=== PATIENT | female | born 1945 | race Caucasian/White ===

== ENCOUNTER 2021-02-14 12:15 | Outpatient (CLI) | payer MEDICARE, MEDICAID, SELFPAY ==
--- NOTE | 2021-02-14 12:25 | USCV_ITS ---
Arlene Jovany Age: 75 Gender: F : 1945 Exam Date: 02/14/2021 12:21 Ordering Phys: Clinton Valdez Technologist: Exam Location: [facility] [place]_ Indication: pvd RIGHT LEFT Brachial 129.00 mmHg Brachial 125.00 mmHg Pressure (mmHg) Waveform Pressure (mmHg) Waveform 150.00 SR TECHNICAL SALES CONSULTANT 148.00 144.00 DPA 135.00 1.16 Ankle/Brachial Index 1.15 70.00 Pre-Exercise Toe Pressure 76.00 0.51 Pre-Exercise Toe/Brachial Index 0.59 FINDINGS Normal resting ABIs bilaterally Slightly diminished resting ABIs bilaterally CONCLUSIONS Features suggestive of mild peripheral artery disease, possibly involving the distal vessels bilaterally. Dr Jonathan Plunkett MD [facility] (Electronically Signed) Final Date: 14 February 2021 20:44 S
== END 2021-02-14 12:16 | disposition home or self-care (01) ==
PROVIDERS: PCP Family Medicine; Visit Provider Family Medicine
DX: I73.9 Peripheral vascular disease, unspecified (principal)
CPT/HCPCS: 93922

== ENCOUNTER → 2021-05-17 14:15 | Outpatient (BNVA) | payer MEDICARE, MEDICAID, SELFPAY | PROVIDERS: PCP Family Medicine; Visit Provider Nurse Practitioner Family | DX: N39.0 Urinary tract infection, site not specified (principal); N39.3 Stress incontinence (female) (male) | CPT/HCPCS: 81003; 87077; 87086; 87184 ==

== ENCOUNTER → 2021-06-14 08:31 | Outpatient (BNVA) | payer MEDICARE, MEDICAID, SELFPAY | PROVIDERS: PCP Family Medicine; Visit Provider Nurse Practitioner Family | DX: N39.0 Urinary tract infection, site not specified (principal) | CPT/HCPCS: 81003 ==

== ENCOUNTER → 2021-07-25 12:57 | Outpatient (BNVA) | payer MEDICARE, MEDICAID, SELFPAY | PROVIDERS: PCP Family Medicine; Visit Provider Internal Medicine Cardiovascular Disease | DX: I11.0 Hypertensive heart disease with heart failure (principal); I50.22 Chronic systolic (congestive) heart failure; I25.10 Atherosclerotic heart disease of native coronary artery without angina pectoris; I25.5 Ischemic cardiomyopathy | CPT/HCPCS: 99214 ==

== ENCOUNTER 2023-01-31 08:41 | Inpatient (IN) | payer MEDICARE, MEDICAID, SELFPAY ==
[2023-01-31] VITALS (101 sets, daily range): BP systolic 106–171; BP diastolic 52–139; PULSE 69–92; RESP 18–38; TEMP 36.4–37; O2SAT 89–100
--- NOTE | 2023-01-31 08:44 | ECG_ITS ---
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 Measurements Intervals [place] Rate: 77 P: 78 CA: 198 QRS: -31 QRSD: 100 T: 66 QT: 293 QTc: 333 Interpretive Statements SINUS RHYTHM LEFT AXIS DEVIATION [QRS AXIS < -30] MODERATE VOLTAGE CRITERIA FOR LVH, CONSIDER NORMAL VARIANT [MEETS CRITERIA IN ONE OF: R(aVL), S(V1), R(V5), R(V5/V6)+S(V1)] NONSPECIFIC T-WAVE ABNORMALITY No previous ECG available for comparison Electronically Signed On 01-31-2023 12:40:29 MACHINIST HELPER MARINE by Rosaura Johnson M.D. [id number]
--- NOTE | 2023-01-31 08:45 | XRR_ITS ---
PROCEDURE INFORMATION: Exam: XR Chest Exam date and time: 01/31/2023 9:11 AM Age: 77 years old Clinical indication: Shortness of breath; Additional info: Dyspnea/cough TECHNIQUE: Imaging protocol: Radiologic exam of the chest. Views: 1 view. COMPARISON: 1. CR XR chest 2V* [id number] 07/22/2020 8:29 AM 2. CR XR chest 1V portable [id number] 07/17/2020 11:16 PM 3. CR XR chest 2V* [id number] 05/23/2020 12:43 PM FINDINGS: Lungs: Right perihilar and left lower lobe consolidative opacities. Pleural spaces: Possible small left pleural effusion. No pneumothorax. Heart/Mediastinum: Stable cardiomegaly. Vasculature: Heavy atherosclerotic calcification. Bones/joints: Stable dextroconvex spinal curvature. Degenerative changes along the spine and shoulders. Intraperitoneal space: Right upper abdomen surgical clips. XR/XR chest 1V portable [id number] IMPRESSION: 1. Bilateral multifocal consolidations compatible with pneumonia. Recommend imaging followup to resolution to exclude an underlying lesion. 2. Possible small left pleural effusion. 3. Stable cardiomegaly and heavy atherosclerosis.
--- NOTE | 2023-01-31 09:00 | ED_ITS ---
HPI - SOB/Dyspnea General: Chief Complaint: Shortness of Breath/Dyspnea Stated Complaint: shortness of breath Time Seen by Provider: 01/31/23 08:44 Source: EMS, RN notes reviewed and old records reviewed Mode of arrival: EMS History of Present Illness: HPI Narrative: 77-year-old female presents from group home with complaint of shortness of breath and congestion. Usually she wears 2 L by nasal cannula is now requiring 4 L. Began last night prior to that she had a choking episode and they are conc erned about aspiration. She has a history of congestive heart failure which is why she chronically wears oxygen she is on Ranexa. There are no anticoagulants listed currently is on Augmentin which was started for this. MD elicited complaint: shortness of breath and cough Pertinent past history: congestive heart failure Onset (ago): day(s) Context: choking/aspiration Timing: constant Severity: moderate Exacerbating factors: nothing Relieving factors: nothing Known history of: congestive heart failure Treatment prior to arrival: oxygen and other (Steroids) Related Data: Home oxygen amount: 2 liters Review of Systems General: Reports: ROS unobtainable due to medical condition PFSH ED PFSH: Medical History Arthritis Atherosclerosis of [place] coronary artery of [place] heart with stable angina pectoris CAD (coronary artery disease) Carotid artery stenosis CHF (congestive heart failure) CKD (chronic kidney disease) COPD (chronic obstructive pulmonary disease) GERD (gastroesophageal reflux disease) History of CVA (cerebrovascular accident) History of MT (myocardial infarction) HTN (hypertension) Hyperlipidemia Ischemic cardiomyopathy MACARENA (obstructive sleep apnea) Recurrent UTI Urinary incontinence Surgical History S/P cholecystectomy S/P coronary artery stent placement Family History Mother , at age 70 CAD (coronary artery disease) Father , at age 59 Stroke Bleeding disorder Sister Stroke Social History Smoking and tobacco/nicotine status: never used tobacco/nicotine Alcohol intake: never Marital status: Current occupational status: retired Physical Exam Const: ORIENTATION/CONSCIOUSNESS: Yes awake HENMT: COMMON NORMALS: normocephalic, atraumatic and hearing grossly normal bilaterally HEAD & SCALP: normocephalic and atraumatic Resp: COMMON NORMALS: No use of accessory muscles EFFORT & INSPECTION: Yes tachypneic AUSCULTATION: rhonchi and wheezes Cardio: COMMON NORMALS: regular rate, regular rhythm and No murmurs present (Cardio) RATE: regular rate RHYTHM: regular rhythm GI: COMMON NORMALS: Soft to palpation and No hepatosplenomegaly present AUSCULTATION: Yes normoactive bowel sounds PALPATION: Yes Soft to palpation, No Tenderness to palpation present (GI), No Guarding due to palpation present (GI) and Yes No hepatosplenomegaly present Extremity: COMMON NORMALS: normal to inspection, capillary refill normal, no clubbing, cyanosis or edema, no calf tenderness and no pedal edema Skin: COMMON NORMALS: no rashes or lesions noted GENERAL SKIN EXAM: no rashes or lesions noted Course Vital Signs: Vital signs: Vital Signs Temperature 98.6 F 01/31/23 08:43 Pulse Rate 88 01/31/23 14:30 Respiratory Rate 35 H 01/31/23 14:30 Blood Pressure 152/90 01/31/23 14:30 Pulse Oximetry 95 01/31/23 14:30 Oxygen Delivery Me thod Nasal Cannula 01/31/23 13:10 Oxygen Flow Rate 3 01/31/23 13:10 MDM - SOB/Dyspnea Medical Decision Making Bilateral lower lobe pneumonia this is increased oxygen need. We are able to correct her oxygen deficit with supplemental oxygen no tachycardia. Labs reviewed initiated antibiotics. Will admit discussed with hospitalist. She also does appear to have mild fluid overload Lasix given. Medical Records I reviewed the patient's medical records. Lab Data I reviewed the patient's lab results. 01/31/23 09:07 01/31/23 09:07 Labs/Radiology: Radiology Impressions Chest X-Ray 01/31/23 08:45 IMPRESSION: 1. Bilateral multifocal consolidations compatible with pneumonia. Recommend imaging followup to resolution to exclude an underlying lesion. 2. Possible small left pleural effusion. 3. Stable cardiomegaly and heavy atherosclerosis. Chest CTA 01/31/23 11:31 IMPRESSION: 1. Gxzb-qewphwv-mimx-right lung consolidations. Differential considerations include multifocal pneumonia, possibly atelectasis or sequela of aspiration. Recommend imaging followup to resolution to exclude an underlying lesion. 2. Mildly prominent mediastinal lymph node is nonspecific but possibly reactive. 3. Small hiatal hernia with fluid along the mid and lower esophagus which may be seen in the setting of gastroesophageal reflux or other esophageal dysmotility. 4. Mottled lucent appearance at multiple bilateral posterior ribs favored to represent chronic posttraumatic sequela, although possibility for metastatic disease. Query history of malignancy. 5. Mild anterior compression deformities of the C7 and T2-5 vertebral bodies, age indeterminate. 6. Pulmonary arterial dilatation may be seen in the setting of pulmonary hypertension. 7. Indeterminate 1.3 cm left adrenal nodule. Consider 12 month follow-up adrenal CT. (Reference: Tatyana) COMMENTS: Consistent with the [place] [employer]'s Incidental Findings Committee white paper (J Am Dana Radiol 2015): In patients aged 35 years and older with an incidental thyroid nodule equal to or greater than 1.[address], MRI or extrathyroidal US, further evaluation with dedicated thyroid US is recommended for patients with normal life expectancy and without comorbidities. For smaller nodules without suspicious features, no further evaluation or follow up is recommended. REFERENCES: Tatyana MARTINEZ, et al. Management of Incidental Adrenal Masses: A White Paper of the ACR Incidental Findings Committee. J Am Dana Radiol. 2017;14(8):3545-7144. Laboratory Results WBC 6.41 10^3/uL (3.29-11.43) 01/31/23 09:07 RBC 4.28 10^6/uL (3.85-5.65) 01/31/23 09:07 Hgb 12.40 g/dL (11.27-16.99) 01/31/23 09:07 Hct 38.3 % (36-47) 01/31/23 09:07 MCV 89.5 fl (85-98) 01/31/23 09:07 MCH 29.0 pg (27-33) 01/31/23 09:07 MCHC 32.4 g/dL (30-55) 01/31/23 09:07 RDW 14.5 % (12.1-15.1) 01/31/23 09:07 Plt Count 149 10^3/cmm (157-399) L 01/31/23 09:07 MPV 9.6 fL (7.4-10.4) 01/31/23 09:07 Neut % (Auto) 74.0 % 01/31/23 09:07 Lymph % (Auto) 17.9 % 01/31/23 09:07 Bay % (Auto) 7.5 % 01/31/23 09:07 Eos % (Auto) 0.0 % 01/31/23 09:07 Baso % (Auto) 0.3 % 01/31/23 09:07 Neut # (Auto) 4.74 10^3/uL (1.8-7.7) 01/31/23 09:07 Lymph # (Auto) 1.2 10^3/uL (0.8-4.8) 01/31/23 09:07 Bay # (Auto) 0.5 10^3/uL (0.2-0.9) 01/31/23 09:07 Eos # (Auto) 0.0 10^3/uL (0.0-0.8) 01/31/23 09:07 Baso # (Auto) 0.0 10^3/uL (0.0-0.1) 01/31/23 09:07 Nucleated RBC % (auto) 0 % 01/31/23 09:07 Nucleated RBCs # 0.0 /100WBC 01/31/23 09:07 D-Dimer 3.25 ug/mLFEU (0-0.59) H 01/31/23 09:07 Sodium 142 mmol/L (136-145) 01/31/23 09:07 Potassium 3.4 mmol/L (3.5-5.1) L 01/31/23 09:07 Chloride 106 mmol/L (98-107) 01/31/23 09:07 Carbon Dioxide 23 mmol/L (22-29) 01/31/23 09:07 Anion Gap 16.4 (5-19) 01/31/23 09:07 BUN 24 mg/dL (8-23) H 01/31/23 09:07 Creatinine 1.0 mg/dL (0.5-0.9) H 01/31/23 09:07 GFR Calculation Not Reportable 01/31/23 09:07 Glucose 113 mg/dL (65-115) 01/31/23 09:07 Calculated Osmolality 299 mOsm/kg (285-295) H 01/31/23 09:07 Calcium 8.5 mg/dL (8.5-10.5) 01/31/23 09:07 Total Bilirubin 0.9 mg/dL (0.15-1.2) 01/31/23 09:07 AST 19 U/L (0-32) 01/31/23 09:07 ALT 11 U/L (0-33) 01/31/23 09:07 Alkaline Phosphatase 86 U/L (35-105) 01/31/23 09:07 Troponin T Baseline 39 ng/L (0-10) H 01/31/23 09:07 C-Reactive Protein 64.1 mg/L (0.0-4.9) H 01/31/23 09:07 NT-Pro-B Natriuret Pep 00163 pg/mL (0-450) H 01/31/23 09:07 Total Protein 6.5 g/dL (6.6-8.7) L 01/31/23 09:07 Albumin 3.2 g/dL (3.5-5.2) L 01/31/23 09:07 Globulin 3.3 g/dL (1.3-4.6) 01/31/23 09:07 Procalcitonin 28.66 ng/mL (0-0.5) H 01/31/23 09:07 All radiology interpretation(s) finalized by discharge Discharge Plan Discharge Patient Disposition: Admitted As Inpatient Admit Provider: Tod Norman Clinical Impression: Bilateral pneumonia, Ischemic cardiomyopathy, Acute hypoxemic respiratory failure, Congestive heart failure (CHF) Condition: Stable Coding Level of Care Code ED Director Of Channel Marketing for Tirso Lr
[2023-01-31 09:24] LABS: Basophils % 0.3 %; Hematocrit 38.3 % (36-47); Lymphocytes # 1.2 10^3/uL (0.8-4.8); Lymphocytes % 17.9 %; Mean Corpuscular HGB Conc 32.4 g/dL (30-55); Mean Corpuscular Volume 89.5 fl (85-98); Mean Platelet Volume 9.6 fL (7.4-10.4); Monocytes # 0.5 10^3/uL (0.2-0.9); Monocytes % 7.5 %; Neutrophils # 4.74 10^3/uL (1.8-7.7); Nucleated Red Blood Cells % 0 %; Platelet Count 149 10^3/cmm (157-399); Red Blood Count 4.28 10^6/uL (3.85-5.65); Red Cell Distribution Width 14.5 % (12.1-15.1); White Blood Count 6.41 10^3/uL (3.29-11.43)
[2023-01-31 09:59] LABS: Alanine Aminotransferase 11 U/L (0-33); Albumin Level 3.2 g/dL (3.5-5.2); Alkaline Phosphatase 86 U/L (35-105); Blood Urea Nitrogen 24 mg/dL (8-23); Calcium 8.5 mg/dL (8.5-10.5); Carbon Dioxide 23 mmol/L (22-29); Chloride 106 mmol/L (98-107); Globulin 3.3 g/dL (1.3-4.6); Glucose 113 mg/dL (65-115); NT Pro B Type Natriuretic Pept 10222 pg/mL (0-450); Osmolality Calculated 299 mOsm/kg (285-295); Sodium 142 mmol/L (136-145); Total Bilirubin 0.9 mg/dL (0.15-1.2); Total Protein 6.5 g/dL (6.6-8.7)
[2023-01-31 10:09] LABS: Anion Gap 16.4 (5-19); Aspartate Amino Transferase 19 U/L (0-32); Potassium 3.4 mmol/L (3.5-5.1)
--- NOTE | 2023-01-31 11:31 | CTR_ITS ---
PROCEDURE INFORMATION: Exam: CTA Chest With Contrast Exam date and time: 01/31/2023 12:07 PM Age: 77 years old Clinical indication: Shortness of breath; Patient HX: Unable to hold breathe and raise arms up; Additional info: SOB TECHNIQUE: Imaging protocol: Computed tomographic angiography of the chest with contrast. Exam focused on the arteries. 3D rendering (Not supervised by radiologist): MIP and/or 3D reconstructed images were created by the technologist. Radiation optimization: All CT scans at this facility use at least one of these dose optimization techniques: automated exposure control; mA and/or kV adjustment per patient size (includes targeted exams where dose is matched to clinical indication); or iterative reconstruction. Contrast material: OMNI 350; Contrast volume: 95 ml; Contrast route: INTRAVENOUS (IV); REPORTING DATA: Count of CT and Cardiac NM exams in prior 12 months: This patient has received 0 known CTs and 0 known cardiac nuclear medicine studies in the 12 months prior to the current study. COMPARISON: CR (CHEST, ) 01/31/2023 9:11 AM RADIATION DOSE METRICS: Total DLP (mGy-cm): 538.8 FINDINGS: Pulmonary arteries: Pulmonary arterial dilatation with the main trunk measuring up to 4 cm. No central, lobar, or segmental filling defects. Aorta: Heavy systemic atherosclerotic calcification without aortic aneurysm. Thyroid: Subcentimeter left thyroid nodules require no dedicated imaging follow-up. Lungs: Jdjj-kudbolm-abfi-right lower lobe and posterior left upper lobe/lingular consolidations with associated air bronchograms. Pleural spaces: No pleural effusion or pneumothorax. Heart: Cardiomegaly. No pericardial effusion. Mediastinal space: Fluid throughout the mid and lower esophagus. Lymph nodes: Mildly prominent left paratracheal lymph node measures 1.4 cm in the short axis on axial image 134 of series 7. Calcified mediastinal lymph nodes in keeping with sequela of old granulomatous disease. Diaphragm: Small hiatal hernia. Gallbladder and bile ducts: Prior cholecystectomy. Spleen: Tiny splenic calcifications in keeping with sequela of old granulomatous disease. Adrenal glands: Indeterminate 1.3 cm left adrenal nodule. Bones/joints: Diffusely decreased mineralization. Moderate to severe dextroconvex spinal curvature. Mild anterior compression deformity of the C7 and T5 vertebral bodies. Multiple bilateral chronic appearing rib fracture deformities. Mottled lucent appearance at multiple bilateral posterior rib fractures, most conspicuous at the left 6 through 8th ribs with questionable cortical integrity. Soft tissues: Unremarkable. CT/CT angio chest PE protcl [id number] IMPRESSION: 1. Tllz-rsdlksu-dmxo-right lung consolidations. Differential considerations include multifocal pneumonia, possibly atelectasis or sequela of aspiration. Recommend imaging followup to resolution to exclude an underlying lesion. 2. Mildly prominent mediastinal lymph node is nonspecific but possibly reactive. 3. Small hiatal hernia with fluid along the mid and lower esophagus which may be seen in the setting of gastroesophageal reflux or other esophageal dysmotility. 4. Mottled lucent appearance at multiple bilateral posterior ribs favored to represent chronic posttraumatic sequela, although possibility for metastatic disease. Query history of malignancy. 5. Mild anterior compression deformities of the C7 and T2-5 vertebral bodies, age indeterminate. 6. Pulmonary arterial dilatation may be seen in the setting of pulmonary hypertension. 7. Indeterminate 1.3 cm left adrenal nodule. Consider 12 month follow-up adrenal CT. (Reference: Tatyana) COMMENTS: Consistent with the [place] [employer]'s Incidental Findings Committee white paper (J Am Dana Radiol 2015): In patients aged 35 years and older with an incidental thyroid nodule equal to or greater than 1.[address], MRI or extrathyroidal US, further evaluation with dedicated thyroid US is recommended for patients with normal life expectancy and without comorbidities. For smaller nodules without suspicious features, no further evaluation or follow up is recommended. REFERENCES: Tatyana MARTINEZ et al. Management of Incidental Adrenal Masses: A White Paper of the ACR Incidental Findings Committee. J Am Dana Radiol. 2017;14(8):8783-6790.
[2023-01-31 11:36] LABS: Troponin(5th) Baseline 39 ng/L (0-10)
[2023-01-31] MEDS: dexamethasone 10 mg/mL INJ 6 MG IVP (11:45)
[2023-01-31] MEDS: diphenhydrAMINE 50 mg/mL SDV 1mL 25 MG IVP (11:45)
[2023-01-31 11:47] LABS: C Reactive Protein 64.1 mg/L (0.0-4.9); Procalcitonin 28.66 ng/mL (0-0.5)
[2023-01-31 12:00] LABS: Troponin 5 2HR 41.34 ng/L (0-10)
[2023-01-31 12:10] LABS: D Dimer 3.25 ug/mLFEU (0-0.59)
[2023-01-31 12:12] LABS: Troponin 5 2HR Delta 2.34 ABS# (0-10)
[2023-01-31] MEDS: iohexol 350 mg/mL 500 mL Btl (per mL) IV (12:19)
[2023-01-31] MEDS: FUROsemide 10 mg/mL SDV 4mL 40 MG IVP (12:30)
[2023-01-31] MEDS: piperacillin-tazobactam 3.375 GM in sodium chloride 0.9% (plus) 50 ML IV ×2 (12:35→20:02)
--- NOTE | 2023-01-31 12:49 | USCV_ITS ---
Jovany Jacobs Age: 77 Gender: F : 1945 Exam Date: 01/31/2023 13:24 Ordering Phys: Tod Norman MD Technologist: CT Exam Location: [facility] [place] Indication: sob BP: 126 / 79 HR: 84 Rhythm: PVCs Technical Quality: , Fair MEASUREMENTS (Male / Female) Normal Values 2D ECHO LV Chamber Size 6.0 cm RV Chamber Size 4.6 cm LVOT Diameter 2.2 cm LV Ejection Fraction MOD 2C 29.3 % LV Ejection Fraction 2C AL 29.3 % LA Diameter 4.7 cm LA Width 5.8 cm LA Height 5.7 cm RA Width 3.9 cm RA Height 4.5 cm Aorta at Sinotubular Diameter 3.4 cm IVC Diameter 2.0 cm M-MODE Aortic Annulus Diameter 3.4 cm LA Ao Ratio MM 1.4 MV E Point Septal Separation 2.8 cm DOPPLER AV Peak Velocity 308.0 cm/s LVOT Peak Velocity 94.0 cm/s AV Area Cont Eq vti 1.3 cm squared AV Area Cont Eq pk 1.2 cm squared MV E' Velocity 5.0 cm/s TR Peak Velocity 201.0 cm/s TR Peak Gradient 16.2 mmHg TV Peak E Velocity 59.0 cm/s Right Atrial Pressure 8.0 mmHg Pulmonary Artery Systolic Pressu 24.2 mmHg PV Peak Velocity 105.0 cm/s FINDINGS Left Ventricle Moderately dilated left ventricle cavity. Moderately severely reduced LV systolic function, LVEF 30-35%. Severe hypokinesis of antral lateral and inferior calvert. Grade 2 diastolic dysfunction. Right Ventricle Normal right ventricular size and systolic function. Right Atrium Normal right atrial size. Left Atrium Dilated right atrium Mitral Valve Thickened mitral valve. Mild mitral valve regurgitation. Aortic Valve Thickened calcified aortic valve with reduced opening. Aortic valve gradient measurements revealed moderate aortic stenosis, peak gradient 38 mmHg, mean gradient 24 mmHg. However this is likely underestimate of aortic stenosis due to low flow-low pressure gradient related to his severe systolic dysfunction. Tricuspid Valve Thickened tricuspid valve. Trace tricuspid valve stenosis. Pulmonic Valve Structurally normal pulmonic valve. Mild pulmonary valve regurgitation. Pericardium No pericardial effusion. Aorta Normal size aortic root and proximal ascending aorta. IVC Normal IVC dimension with >50% respiratory change of the inferior vena cava. CONCLUSIONS 1. Moderately dilated LV cavity with moderately severely reduced LV systolic function LVEF 30-35%. Inferior and anterolateral hypokinesis. 2. Moderate aortic stenosis however the measurements are underestimated due to low flow low pressure gradient related to systolic dysfunction. Recommend repeat measurements after dobutamine infusion if assessment of severity aortic valve stenosis is clinically indicated. 3. Normal right heart and pulmonary pressures. Rosaura Johnson MD (Electronically Signed) Final Date: 01 February 2023 10:26 S
[2023-01-31 13:41] LABS: Adenovirus Not Detected (NOT DETECT); Chlamydia Pneumoniae Not Detected (NOT DETECT); Coronavirus 229E,HKU1,NL63,OC4 Not Detected (NOT DETECT); Human Metapneumovirus Not Detected (NOT DETECT); Human Rhinovirus/Enterovirus Not Detected (NOT DETECT); Influenza A Not Detected (NOT DETECT); Influenza A H1 Not Detected (NOT DETECT); Influenza A H1-2009 Not Detected (NOT DETECT); Influenza A H3 Not Detected (NOT DETECT); Influenza B Not Detected (NOT DETECT); Mycoplasma Pneumoniae Not Detected (NOT DETECT); Parainfluenza Virus Type 1 Not Detected (NOT DETECT); Parainfluenza Virus Type 2 Not Detected (NOT DETECT); Parainfluenza Virus Type 3 Not Detected (NOT DETECT); Parainfluenza Virus Type 4 Not Detected (NOT DETECT); Respiratory Syncytial Virus A Not Detected (NOT DETECT); Respiratory Syncytial Virus B Not Detected (NOT DETECT); SARS-COV-2 Not Detected (NOT DETECT)
[2023-01-31 13:43] LABS: ABG PCO2 36.2 mmHg (35-45); ABG PH Result 7.46 (7.35-7.45); Arterial Blood Gas Hematocrit 39.3 % (37-47); Base Excess ABG 1.8 mmol/L (-2.0-2.0); Blood Gas Operator Identificat glc; Blood Gas Sample Site Brachial, right; Blood Gas Sample Type Arterial; HCO3 ABG 25.5 mmol/L (22-26); Oxygen Device NC; PO2 ABG 57.5 mmHg (80.0-100.0); PO2 FiO2 Ratio Arterial Blood 0
[2023-01-31 13:51] LABS: INR 1.11 (0.8-1.2)
--- NOTE | 2023-01-31 13:52 | ECG_ITS ---
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 Measurements Intervals [place] Rate: 83 P: 72 WV: 186 QRS: -25 QRSD: 108 T: 32 QT: 371 QTc: 438 Interpretive Statements SINUS RHYTHM WITH FREQUENT SUPRAVENTRICULAR PREMATURE COMPLEXES BORDERLINE LEFT AXIS DEVIATION [QRS AXIS < -20] LEFT VENTRICULAR HYPERTROPHY AND ST-T CHANGE [VOLTAGE CRITERIA PLUS ST/T ABNORMALITY] Compared to ECG 01/31/2023 08:57:43 No significant change Electronically Signed On 02-01-2023 14:19:58 CHIEF COMMERCIAL OFFICER by Rosaura Johnson M.D. [id number]
--- NOTE | 2023-01-31 13:54 | PM.HP ---
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 Currently patient is alert to person, not not to place, not to time, she is encephalopathic, does not follow commands, she really does not have any complaints but has diffuse wheezing in all lung [place], tachypnea, respiratory rate 30s, she is on 4 L, she looks mildly uncomfortable, nasal flaring, intercostal retractions, I have had respiratory therapy get a ABG for me, I spoke to nursing home facility, nursing facility tells me that patient remains bedbound, she needs assistance for activities of daily living can feed herself, she is alert oriented x4 on most days, no evidence of dementia, they tell me that yesterday, she started having coughing, with complaints of wheezing, increasing oxygen requirements, no known aspiration events, no known falls this morning she had persistent wheezing, cough, with increased oxygen requirement so she was sent to [facility] for evaluation. In the ER she is in mild respiratory distress, will order ABG, CT angiogram of the chest, started on broad-spectrum antibiotic therapy, moved to ICU for close monitoring, order troponin series, D-dimer, troponin series, blood cultures, sputum cultures, respiratory viral panel, concerns for aspiration keep n.p.o., hold off on IV fluids BNP over 10,000, does have 1+ pitting edema bilateral lower extremities, has evidence of sepsis, she is already received Lasix, hold off on further Lasix therapy, given creatinine of 1.0, lactic acid ordered, CRP, Pro-Ajay ordered, cardiac echocardiogram ordered Review of Systems General: Reports: ROS unobtainable due to mental status Medications/Allergies Home Medications Medication Instructions Recorded Confirmed Last Taken Type albuterol sulfate 90 mcg/actuation 2 puff inhalation Q6H PRN 12/26/20 06/14/21 Unknown History aerosol inhaler aspirin 81 mg tablet,delayed 81 mg PO DAILY 12/26/20 06/14/21 Unknown History release (Adult Low Dose Aspirin) atorvastatin 20 mg tablet 20 mg PO DAILY 12/26/20 06/14/21 Unknown History cholecalciferol (vitamin D3) 1,250 50,000 unit PO .Once weekly 12/26/20 06/14/21 Unknown History mcg (50,000 unit) capsule hydralazine 50 mg tablet 50 mg PO TID 12/26/20 06/14/21 Unknown History nitroglycerin 0.4 mg sublingual 0.4 mg sublingual Q5M PRN 12/26/20 06/14/21 Unknown History tablet (Nitrostat) pantoprazole 40 mg tablet,delayed 40 mg PO BID 12/26/20 06/14/21 Unknown History release ascorbic acid (vitamin C) 1,000 mg 1,000 mg PO BID 01/18/21 06/14/21 Unknown History tablet vitamin A 2,400 mcg capsule 2,400 mcg PO DAILY 01/18/21 06/14/21 Unknown History amoxicillin 500 mg-potassium 1 tab PO DAILY #30 tabs 07/06/21 Unknown Rx clavulanate 125 mg tablet amoxicillin 875 mg-potassium 1 tab PO BID #42 tabs 07/06/21 Unknown Rx clavulanate 125 mg tablet amlodipine 5 mg tablet 5 mg PO QAM 07/25/21 Unknown History benzonatate 100 mg capsule 100 mg PO BID PRN 07/25/21 Unknown History carvedilol 6.25 mg tablet 6.25 mg PO BID PRN 07/25/21 Unknown History d-mannose 500 mg capsule mg PO 07/25/21 Unknown History furosemide 40 mg tablet 20 mg PO DAILY 07/25/21 Unknown History lactobacillus combination no.9 4 4,000 mmu cells PO DAILY 07/25/21 Unknown History billion cell capsule (Adult 50 Plus Probiotic) potassium gluconate 600 mg (99 mg) 600 mg PO DAILY 07/25/21 Unknown History tablet ranolazine 1,000 mg 1,000 mg PO BID #60 tabs 07/25/21 07/25/21 Unknown Rx tablet,extended release,12 hr (Ranexa) sennosides 8.6 mg tablet (Natural 8.6 mg PO DAILY PRN 07/25/21 Unknown History Senna Laxative) venlafaxine 37.5 mg tablet 37.5 mg PO BID 07/25/21 Unknown History Allergies Allergy/AdvReac Type Severity Reaction Status Date / Time iodine Allergy Mild Hives Verified 01/31/23 08:58 lisinopril Allergy Mild Rash Verified 01/31/23 08:58 ibandronate sodium Allergy Unknown Unknown Verified 01/31/23 08:58 latex Allergy Unknown Unknown Verified 01/31/23 08:58 PFSH Acute PFSH: Medical History Arthritis Atherosclerosis of [place] coronary artery of [place] heart with stable angina pectoris CAD (coronary artery disease) Carotid artery stenosis CHF (congestive heart failure) CKD (chronic kidney disease) COPD (chronic obstructive pulmonary disease) GERD (gastroesophageal reflux disease) History of CVA (cerebrovascular accident) History of [place] (myocardial infarction) HTN (hypertension) Hyperlipidemia Ischemic cardiomyopathy MACARENA (obstructive sleep apnea) Recurrent UTI Urinary incontinence Surgical History S/P cholecystectomy S/P coronary artery stent placement Family History Mother , at age 70 CAD (coronary artery disease) Father , at age 59 Stroke Bleeding disorder Sister Stroke Social History Smoking and tobacco/nicotine status: never used tobacco/nicotine Alcohol intake: never Marital status: Current occupational status: retired Vitals/I&O/Wt Last Vital Signs Temp 98.6 F 01/31/23 08:43 Pulse 88 01/31/23 13:10 Resp 37 H 01/31/23 13:10 BP 168/85 01/31/23 13:10 Pulse Ox 92 01/31/23 13:10 O2 Del Method Nasal Cannula 01/31/23 13:10 O2 Flow Rate 3 01/31/23 13:10 Physical Exam Const: COMMON NORMALS: no acute distress and patient oriented x3 HENMT: COMMON NORMALS: normocephalic HEAD & SCALP: normocephalic Eye: COMMON NORMALS: Equal, round and reactive pupils present and EOMs intact bilaterally Neck/C-Spine: COMMON NORMALS: full ROM Lymph: LYMPHATIC: no lymphadenopathy noted Chest: COMMONS NORMALS: normal inspection of the chest OTHER: Tachypneic, respiratory 33, intercostal retractions, nasal flaring, suprasternal retractions, short of breath with a few words Resp: AUSCULTATION: crackles, rales and wheezes Cardio: COMMON NORMALS: regular rate, regular rhythm, S1 normal heart sound present and S2 normal heart sound present RATE: tachycardic RHYTHM: regular rhythm HEART SOUNDS: S1 normal heart sound present and S2 normal heart sound present GI: COMMON NORMALS: Normal to inspection, nondistended, normoactive bowel sounds present, Soft to palpation and non-tender Extremity: COMMON NORMALS: no pedal edema Neuro: OTHER: Does not follow neurologic testing Urinary Catheter Management: Begum: Cath Placed During This Visit: yes Urinary Catheter Date of Insertion: 01/31/23 Data 01/31/23 09:07 01/31/23 09:07 Micro: Microbiology 01/31/23 13:24 Blood Culture - Preliminary Blood SPECIMEN COLLECTED 01/31/23 13:20 Blood Culture - Preliminary Blood SPECIMEN COLLECTED A&P Assessment and plan (1) Acute encephalopathy: (2) Acute hypoxemic respiratory failure: (3) Sepsis: (4) Bilateral pneumonia: (5) ANY (acute kidney injury): (6) NSTEMI (non-ST elevated myocardial infarction): Plan Acute hypoxic respiratory failure ? Likely second bilateral pneumonia, ? Component of systolic CHF, appears fluid overloaded with 1+ pitting edema, elevated BNP ? Plan, ? Sputum cultures, blood cultures, ? CRP, Pro-Ajay, ? Lactic acid, ? CT angiogram the chest, ? Vancomycin, Zosyn, ? Hold off on further Lasix therapy, monitor urine output, Place Begum catheter, ? Monitor respiratory status closely, ABG, ? Consider BiPAP, ? Full code, ? Lovenox for DVT prophylaxis Bilateral pneumonia, Ischemic cardiomyopathy, systolic CHF, ? Repeat cardiac echo, next NSTEMI, ? Type I versus type II, ? Serial EKGs, short troponins, telemetry monitoring, cardiac echo ? Acute encephalopathy, likely second pneumonia, ? Aspiration precautions, ? N.p.o., Acute kidney injury, ? Monitor urine output, monitor creatinine, Sepsis, ? Sepsis criteria met, as radiographic evidence of bilateral pneumonia, ? Creatinine 1.0, elevated troponins, encephalopathy, respiratory failure, clinical evidence of respiratory failure includes tachypnea, nasal flaring, intercostal retractions, Full code, ? Lovenox for DVT prophylaxis Attestations Medical Necessity Statement*: Patient requires hospitalization, inpatient, greater than 2 midnights, for acute hypoxic respiratory failure, bilateral pneumonia, NSTEMI, sepsis, acute encephalopathy, ANY, systolic CHF Diagnoses Acute encephalopathy G93.40 Acute hypoxemic respiratory failure J96.01 Sepsis A41.9 Bilateral pneumonia J18.9 ANY (acute kidney injury) N17.9 NSTEMI (non-ST elevated myocardial infarction) I21.4
[2023-01-31 13:56] LABS: Lactic Sepsis W/Reflex 2.9 mmol/L (0.5-2.2)
[2023-01-31 14:06] LABS: NT Pro B Type Natriuretic Pept 25180 pg/mL (0-450)
[2023-01-31 15:18] LABS: Reflex Lactate Order REFLEX LACTIC ORDERD
[2023-01-31 15:19] LABS: Estmated Average Glucose 88; Hemoglobin A1C 4.7 % (4.0-6.0)
[2023-01-31] MEDS: ipratropium-albuterol 3 mL Neb INHALATION ×2 (15:21→20:15)
[2023-01-31 15:29] LABS: Cholesterol 151 mg/dL (0-200); HDL Cholesterol 58 mg/dL (60-100); LDL Cholesterol Calculated 81 mg/dL (50-129); Thyroid Stimulating Hormone 0.54 uIU/mL (0.27-4.20); Triglycerides 60 mg/dL (0-150)
[2023-01-31 15:42] LABS: Bilirubin Urine Neg (Negative); Blood Urine 2+ (Negative); Glucose Urine UA Norm (Normal); Ketones Urine Negative (Negative); Leukocyte Esterase Urine 2+ (Negative); Nitrate Urine Negative (Negative); Protein Urine Neg (Negative); Specific Gravity, Urine 1.005 (1.005-1.030); Urine Appearance SL Hazy (CLEAR); Urine Color Yellow (Yellow); Urobilinogen Urine Norm (Negative); pH Urine 5 (5-7)
[2023-01-31 15:43] LABS: Add Urine Microscopic? YES; Bacteria Urine 3+ /hpf; RBC Urine 0-4 /hpf (0-2); WBC Urine 25-40 /hpf (0-5)
[2023-01-31 15:44] LABS: Add Urine Culture? Yes
[2023-01-31 16:39] LABS: Troponin 5 6HR 41.56 ng/L (0-10)
[2023-01-31 16:53] LABS: Troponin 5 6HR Delta 2.56 ng/L (0-12)
[2023-01-31] MEDS: enoxaparin 40 mg/0.4 mL Syringe SUBCUT (17:35)
[2023-01-31] MEDS: pantoprazole 40 mg SDV IVP (17:35)
--- NOTE | 2023-01-31 18:02 | ECG_ITS ---
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 Measurements Intervals Abrams Rate: 89 P: 85 SD: 178 QRS: -20 QRSD: 101 T: 62 QT: 314 QTc: 382 Interpretive Statements SINUS RHYTHM WITH frequent PACs NONSPECIFIC ST & T-WAVE ABNORMALITY Compared to ECG 01/31/2023 13:52:17 PACs are more frequent Electronically Signed On 02-01-2023 14:15:39 WASH HELPER by Rosaura Johnson M.D. [id number]
[2023-01-31] MEDS: vancomycin 1,250 MG/250 ML PIGGYBACK 200 MG IV (18:37)
[2023-02-01] VITALS (81 sets, daily range): BP systolic 107–154; BP diastolic 59–102; PULSE 63–96; RESP 10–44; TEMP 37.2–37.9; O2SAT 75–100
[2023-02-01] MEDS: pantoprazole 40 mg SDV IVP ×2 (04:23→16:30)
[2023-02-01] MEDS: piperacillin-tazobactam 3.375 GM in sodium chloride 0.9% (plus) 50 ML IV ×3 (04:26→20:45)
[2023-02-01 05:54] LABS: Mean Corpuscular HGB Conc 32.9 g/dL (30-55); Mean Corpuscular Hemoglobin 28.8 pg (27-33); Mean Corpuscular Volume 87.4 fl (85-98); Platelet Count 126 10^3/cmm (157-399); Red Blood Count 3.89 10^6/uL (3.85-5.65); Red Cell Distribution Width 14.6 % (12.1-15.1)
[2023-02-01 06:13] LABS: NT Pro B Type Natriuretic Pept 27718 pg/mL (0-450); Procalcitonin 29.21 ng/mL (0-0.5)
[2023-02-01 06:21] LABS: Lactate (Lactic Acid level) 1.8 mmol/L (0.5-2.2)
[2023-02-01 06:24] LABS: Alanine Aminotransferase 10 U/L (0-33); Albumin Level 3.1 g/dL (3.5-5.2); Alkaline Phosphatase 48 U/L (35-105); Anion Gap 15.9 (5-19); Aspartate Amino Transferase 21 U/L (0-32); Blood Urea Nitrogen 26 mg/dL (8-23); C Reactive Protein 310.6 mg/L (0.0-4.9); Calcium 8.6 mg/dL (8.5-10.5); Carbon Dioxide 26 mmol/L (22-29); Chloride 110 mmol/L (98-107); Globulin 3.3 g/dL (1.3-4.6); Glucose 118 mg/dL (65-115); Osmolality Calculated 314 mOsm/kg (285-295); Phosphorus 3.1 mg/dL (2.5-4.5); Sodium 149 mmol/L (136-145); Total Protein 6.4 g/dL (6.6-8.7)
[2023-02-01 06:32] LABS: Potassium 2.9 mmol/L (3.5-5.1)
[2023-02-01] MEDS: potassium chloride premix 100 ML 25 MEQ IV ×2 (06:46→10:30)
[2023-02-01 06:47] LABS: Slide Review Slide Review Perform
[2023-02-01 06:49] LABS: Absolute Neutrophil 9.5 10^3/cmm (1.4-6.5); Absolute Segmented Neutrophil 5.3 10/cmm (1.6-7.1); Band Neutrophils Absolute 4.3 10^3/cmm (0.0-1.2); Eosinophils 0 %; Lymphocytes 7 %; Lymphocytes Absolute 0.8 10^3/cmm (1.2-3.4); Monocytes Absolute 0.5 10^3/cmm (0.1-0.6); Platelet Estimate Decreased (Normal); Segmented Neutrophils 46 %; Total Cells Counted 100 (0-100)
[2023-02-01] MEDS: budesonide 0.5 mg/2 mL Neb INHALATION (07:41)
[2023-02-01] MEDS: ipratropium-albuterol 3 mL Neb INHALATION ×4 (07:41→19:12)
[2023-02-01] MEDS: aspirin 81 mg EC Tablet PO (08:26)
[2023-02-01] MEDS: acetaminophen 325 mg Tablet 650 MG PO (08:27)
[2023-02-01] MEDS: venlafaxine 75 mg Tablet 37.5 MG PO ×2 (08:27→18:36)
[2023-02-01] MEDS: atorvastatin 40 mg Tablet 20 MG PO (08:27)
[2023-02-01] MEDS: ranolazine (12HR) 500 mg Tablet 1000 MG PO ×2 (08:28→18:36)
[2023-02-01] MEDS: lidocaine 1% 5 ML in potassium chloride premix 100 ML 26.25 ML IV (10:30)
--- NOTE | 2023-02-01 13:21 | PM.PN ---
Subjective Subjective: Patient was seen this morning, she is alert to person, place, yesterday afternoon she was placed on BiPAP due to worsening respiratory status remains on BiPAP, clinically looks euvolemic, no evidence of respiratory distress this morning no nasal flaring no intercostal retractions no suprasternal retractions, but remains BiPAP dependent continue to monitor ICU Vitals/I&O/Wt Last Vital Signs Temp 100.2 F H 02/01/23 04:00 Pulse 81 02/01/23 12:45 Resp 19 H 02/01/23 12:45 BP 132/85 02/01/23 12:45 Pulse Ox 97 02/01/23 12:45 O2 Del Method BiPAP 02/01/23 11:07 O2 Flow Rate 4 01/31/23 15:01 FiO2 40 02/01/23 11:13 01/31/23 02/01/23 02/01/23 22:59 06:59 14:59 Intake Total 250 / 300 50 / 350 143.333 / 143.333 Output Total 1700 / 1700 300 / 2000 1800 / 1800 Balance -1450 / -1400 -250 / -1650 -1656.667 / -1656.667 Weight last 48 hrs Weight 94.529 kg Weight 96.162 kg Physical Exam Const: COMMON NORMALS: no acute distress and patient oriented x3 Resp: COMMON NORMALS: normal respiratory effort, No retractions and No use of accessory muscles AUSCULTATION: crackles and wheezes Cardio: COMMON NORMALS: regular rate, regular rhythm, S1 normal heart sound present and S2 normal heart sound present RATE: regular rate RHYTHM: regular rhythm HEART SOUNDS: S1 normal heart sound present and S2 normal heart sound present GI: COMMON NORMALS: Normal to inspection, nondistended, normoactive bowel sounds present and non-tender Extremity: COMMON NORMALS: no pedal edema Neuro: COMMON NORMALS: patient oriented x3 Psych: COMMON NORMALS: mental status grossly normal Urinary Catheter Management: Begum: Cath Placed During This Visit: yes Reason for Continuing Indwelling Catheter: Other Urinary Catheter Date of Insertion: 01/31/23 Data 02/01/23 05:15 02/01/23 05:15 Micro: Microbiology 01/31/23 13:13 Urine Culture - Preliminary Urine,Clean Catch Gram Negative Rods 01/31/23 13:24 Blood Culture - Preliminary Blood SPECIMEN COLLECTED 01/31/23 13:20 Blood Culture - Preliminary Blood SPECIMEN COLLECTED A&P Assessment and plan (1) Acute encephalopathy: (2) Acute hypoxemic respiratory failure: (3) Sepsis: (4) Bilateral pneumonia: (5) ANY (acute kidney injury): (6) NSTEMI (non-ST elevated myocardial infarction): Plan Acute hypoxic respiratory failure ? Likely second bilateral pneumonia, Pro-Ajay 29, CRP 310 ? Component of systolic CHF, appears fluid overloaded with 1+ pitting edema, elevated BNP -CT angiogram chest . ? Amwi-omftcmo-xmur-right lung consolidations. Differential considerations include multifocal pneumonia, possibly atelectasis or sequela of aspiration. Recommend imaging followup to resolution to exclude an underlying lesion. 2. ? Mildly prominent mediastinal lymph node is nonspecific but possibly reactive. 3. ? Small hiatal hernia with fluid along the mid and lower esophagus which may be seen in the setting of gastroesophageal reflux or other esophageal dysmotility. ? Plan, ? Sputum cultures, blood cultures, ? Vancomycin, Zosyn, ? 1 dose IV Lasix today, monitor urine output, Place Begum catheter, ? Monitor respiratory status closely, ABG, ? Consider BiPAP, ? Full code, ? Lovenox for DVT prophylaxis Bilateral pneumonia, Ischemic cardiomyopathy, systolic CHF, ? Echo as below ? BNP over 27,000 ? Hypokalemia potassium 2.9 will replace IV, ? 1 dose of IV Lasix this afternoon ? Urine output 3 L NSTEMI, ? Type I versus type II, ? Serial EKGs, short troponins, telemetry monitoring ?CONCLUSIONS ?1.? Moderately dilated LV cavity with moderately severely ?reduced LV systolic function LVEF 30-35%.? Inferior and ?anterolateral hypokinesis. ?2.? Moderate aortic stenosis however the measurements are ?underestimated due to low flow low pressure gradient related to ?systolic dysfunction.? Recommend repeat measurements after ?dobutamine infusion if assessment of severity aortic valve ?stenosis is clinically indicated. ?3.? Normal right heart and pulmonary pressures. Acute encephalopathy, likely second pneumonia, ? Aspiration precautions, ? N.p.o., Acute kidney injury, ? Monitor urine output, monitor creatinine, Sepsis, ? Sepsis criteria met, as radiographic evidence of bilateral pneumonia, ? Creatinine 1.0, elevated troponins, encephalopathy, respiratory failure, clinical evidence of respiratory failure includes tachypnea, nasal flaring, intercostal retractions, Full code, ? Lovenox for DVT prophylaxis, IV Lasix, potassium replacement continue IV antibiotics, continue BiPAP therapy, continue ICU monitoring Attestations Medical Necessity Statement*: Patient requires hospitalization for acute systolic CHF exacerbation, pneumonia, sepsis, ANY, elevated lactic acid, acute respiratory failure, acute encephalopathy Diagnoses Acute encephalopathy G93.40 Acute hypoxemic respiratory failure J96.01 Sepsis A41.9 Bilateral pneumonia J18.9 ANY (acute kidney injury) N17.9 NSTEMI (non-ST elevated myocardial infarction) I21.4
[2023-02-01] MEDS: FUROsemide 10 mg/mL SDV 4mL 40 MG IVP (13:37)
[2023-02-01] MEDS: enoxaparin 40 mg/0.4 mL Syringe SUBCUT (16:30)
[2023-02-01] MEDS: vancomycin 1,250 MG/250 ML PIGGYBACK 200 MG IV (18:35)
[2023-02-02] VITALS (33 sets, daily range): BP systolic 107–162; BP diastolic 59–104; PULSE 48–91; RESP 14–26; TEMP 36.6–36.8; O2SAT 90–100
[2023-02-02] MEDS: pantoprazole 40 mg SDV IVP ×2 (03:21→16:51)
[2023-02-02] MEDS: piperacillin-tazobactam 3.375 GM in sodium chloride 0.9% (plus) 50 ML IV ×3 (03:21→20:24)
[2023-02-02 04:34] LABS: Basophils # 0.1 10^3/uL (0.0-0.1); Basophils % 0.7 %; Eosinophils % 0.3 %; Hematocrit 31.7 % (36-47); Lymphocytes # 0.8 10^3/uL (0.8-4.8); Lymphocytes % 6.5 %; Mean Corpuscular HGB Conc 32.2 g/dL (30-55); Mean Corpuscular Hemoglobin 28.7 pg (27-33); Mean Platelet Volume 10.4 fL (7.4-10.4); Monocytes # 0.5 10^3/uL (0.2-0.9); Monocytes % 3.8 %; Neutrophils # 9.87 10^3/uL (1.8-7.7); Neutrophils % 82.9 %; Nucleated Red Blood Cells % 0 %; Platelet Count 125 10^3/cmm (157-399); Red Blood Count 3.56 10^6/uL (3.85-5.65); Red Cell Distribution Width 15.1 % (12.1-15.1); White Blood Count 11.91 10^3/uL (3.29-11.43)
[2023-02-02 04:48] LABS: Alanine Aminotransferase 9 U/L (0-33); Alkaline Phosphatase 42 U/L (35-105); Anion Gap 14.6 (5-19); Aspartate Amino Transferase 21 U/L (0-32); Blood Urea Nitrogen 39 mg/dL (8-23); C Reactive Protein 261.7 mg/L (0.0-4.9); Calcium 8.6 mg/dL (8.5-10.5); Carbon Dioxide 25 mmol/L (22-29); Chloride 110 mmol/L (98-107); Globulin 3.3 g/dL (1.3-4.6); Glucose 96 mg/dL (65-115); Magnesium 2.3 mg/dL (1.7-2.3); Osmolality Calculated 311 mOsm/kg (285-295); Phosphorus 2.2 mg/dL (2.5-4.5); Potassium 3.6 mmol/L (3.5-5.1); Sodium 146 mmol/L (136-145); Total Bilirubin 1.1 mg/dL (0.15-1.2); Total Protein 6.3 g/dL (6.6-8.7)
[2023-02-02 04:52] LABS: Lactate (Lactic Acid level) 1.2 mmol/L (0.5-2.2)
[2023-02-02 05:02] LABS: NT Pro B Type Natriuretic Pept 8947 pg/mL (0-450); Procalcitonin 26.08 ng/mL (0-0.5)
[2023-02-02 05:15] LABS: Slide Review Slide Review Perform
[2023-02-02] MEDS: budesonide 0.5 mg/2 mL Neb INHALATION (08:25)
[2023-02-02] MEDS: ipratropium-albuterol 3 mL Neb INHALATION ×4 (08:25→19:31)
[2023-02-02] MEDS: venlafaxine 75 mg Tablet 37.5 MG PO ×2 (08:56→17:00)
[2023-02-02] MEDS: FUROsemide 10 mg/mL SDV 4mL 40 MG IVP ×2 (08:56→17:00)
[2023-02-02] MEDS: atorvastatin 40 mg Tablet 20 MG PO (08:56)
[2023-02-02] MEDS: ranolazine (12HR) 500 mg Tablet 1000 MG PO ×2 (08:57→17:00)
[2023-02-02] MEDS: aspirin 81 mg EC Tablet PO (08:57)
--- NOTE | 2023-02-02 16:35 | PM.PN ---
Subjective Subjective: Patient was seen this morning, she is alert to person, not to place, to time she remains encephalopathic she can follow commands such as squeezing my fingers wiggling her toes, but does not know where she is, does know why she is here, does report shortness of breath Vitals/I&O/Wt Last Vital Signs Temp 98.9 F 02/01/23 05:00 Pulse 70 02/02/23 15:20 Resp 23 H 02/02/23 15:09 BP 155/88 02/02/23 12:00 Pulse Ox 96 02/02/23 15:09 O2 Del Method Nasal Cannula 02/02/23 15:09 O2 Flow Rate 4 02/02/23 15:09 FiO2 30 02/02/23 08:30 02/02/23 02/02/23 02/02/23 06:59 14:59 22:59 Intake Total 50 / 698.333 50 / 50 Output Total 400 / 2750 Balance -350 / -2051.667 50 / 50 Weight last 48 hrs Weight 94.71 kg Weight 94.619 kg Weight 94.529 kg Physical Exam Const: COMMON NORMALS: no acute distress EXAM LIMITATIONS: altered mental status ORIENTATION/CONSCIOUSNESS: Yes awake and Yes oriented to person; not oriented to place and not oriented to time Resp: COMMON NORMALS: normal respiratory effort, No retractions and No use of accessory muscles AUSCULTATION: crackles and wheezes Cardio: COMMON NORMALS: regular rate, regular rhythm, S1 normal heart sound present and S2 normal heart sound present RATE: regular rate RHYTHM: regular rhythm HEART SOUNDS: S1 normal heart sound present and S2 normal heart sound present GI: COMMON NORMALS: Normal to inspection, nondistended, normoactive bowel sounds present and non-tender Extremity: NARRATIVE EXTREMITY EXAM: 2+ pitting edema bilateral extremity Neuro: SENSORIUM/ORIENTATION: Yes oriented to person, No oriented to place and No oriented to time Psych: COMMON NORMALS: mental status grossly normal Urinary Catheter Management: Begum: Cath Placed During This Visit: yes Reason for Continuing Indwelling Catheter: Accurate Measurement of Urinary Output in Critically Ill Patients Urinary Catheter Date of Insertion: 01/31/23 Data 02/02/23 04:15 02/02/23 04:15 Micro: Microbiology 01/31/23 13:13 Urine Culture - Final Urine,Clean Catch Proteus mirabilis 01/31/23 13:24 Blood Culture - Preliminary Blood NEGATIVE TO DATE 01/31/23 13:20 Blood Culture - Preliminary Blood NEGATIVE TO DATE A&P Assessment and plan (1) Acute encephalopathy: (2) Acute hypoxemic respiratory failure: (3) Sepsis: (4) Bilateral pneumonia: (5) ANY (acute kidney injury): (6) NSTEMI (non-ST elevated myocardial infarction): (7) UTI (urinary tract infection): (8) Congestive heart failure (CHF): Plan Acute hypoxic respiratory failure ? Likely second bilateral pneumonia, Pro-Ajay 29, CRP 310 ? Component of systolic CHF, appears fluid overloaded with 1+ pitting edema, elevated BNP -CT angiogram chest . ? Xwrd-opivjdh-pqwl-right lung consolidations. Differential considerations include multifocal pneumonia, possibly atelectasis or sequela of aspiration. Recommend imaging followup to resolution to exclude an underlying lesion. 2. ? Mildly prominent mediastinal lymph node is nonspecific but possibly reactive. 3. ? Small hiatal hernia with fluid along the mid and lower esophagus which may be seen in the setting of gastroesophageal reflux or other esophageal dysmotility. ? Plan, ? Sputum cultures, blood cultures, ? Vancomycin, Zosyn, ? 1 dose IV Lasix today, monitor urine output, Place Begum catheter, ? Monitor respiratory status closely, ABG, ? Consider BiPAP, ? Full code, ? Lovenox for DVT prophylaxis Bilateral pneumonia, and antibiotics as above Proteus Mirabella's UTI, continue Zosyn Ischemic cardiomyopathy, systolic CHF, ? Echo as below ? BNP over 27,000 ? Monitor potassium, monitor creatinine ? 1 dose Lasix today ? Urine output 3 L NSTEMI, ? Type I versus type II, ? Serial EKGs, short troponins, telemetry monitoring ?CONCLUSIONS ?1.? Moderately dilated LV cavity with moderately severely ?reduced LV systolic function LVEF 30-35%.? Inferior and ?anterolateral hypokinesis. ?2.? Moderate aortic stenosis however the measurements are ?underestimated due to low flow low pressure gradient related to ?systolic dysfunction.? Recommend repeat measurements after ?dobutamine infusion if assessment of severity aortic valve ?stenosis is clinically indicated. ?3.? Normal right heart and pulmonary pressures. Acute encephalopathy, likely second pneumonia, ? Aspiration precautions, ? N.p.o., Acute kidney injury, ? Monitor urine output, monitor creatinine, Sepsis, ? Sepsis criteria met, as radiographic evidence of bilateral pneumonia, ? Creatinine 1.0, elevated troponins, encephalopathy, respiratory failure, clinical evidence of respiratory failure includes tachypnea, nasal flaring, intercostal retractions, Full code, ? Lovenox for DVT prophylaxis, IV Lasix, potassium replacement continue IV antibiotics, continue BiPAP therapy, continue ICU monitoring continue IV antibiotics, keep n.p.o. status, speech therapy eval Attestations Medical Necessity Statement*: Patient requires hospitalization for UTI, pneumonia, CHF, NSTEMI, COPD, requiring IV admission for IV antibiotics, IV diuretics, BiPAP therapy, clinical monitoring, Diagnoses Acute encephalopathy G93.40 Acute hypoxemic respiratory failure J96.01 Sepsis A41.9 Bilateral pneumonia J18.9 ANY (acute kidney injury) N17.9 NSTEMI (non-ST elevated myocardial infarction) I21.4 UTI (urinary tract infection) N39.0 Congestive heart failure (CHF) I50.9
[2023-02-02] MEDS: enoxaparin 40 mg/0.4 mL Syringe SUBCUT (16:51)
[2023-02-02] MEDS: vancomycin 1,250 MG/250 ML PIGGYBACK 250 MG IV (17:09)
[2023-02-02 18:28] LABS: Vancomycin Trough 16.2 ug/mL (10-15)
[2023-02-03] VITALS (25 sets, daily range): BP systolic 137–184; BP diastolic 68–90; PULSE 45–74; RESP 16–28; TEMP 36.5–37.1; O2SAT 82–100
[2023-02-03] MEDS: pantoprazole 40 mg SDV IVP ×2 (04:17→15:30)
[2023-02-03 04:19] LABS: Basophils # 0.1 10^3/uL (0.0-0.1); Basophils % 0.6 %; Eosinophils # 0.1 10^3/uL (0.0-0.8); Eosinophils % 0.8 %; Hematocrit 35.2 % (36-47); Lymphocytes # 1.1 10^3/uL (0.8-4.8); Lymphocytes % 7.9 %; Mean Corpuscular HGB Conc 31.3 g/dL (30-55); Mean Corpuscular Hemoglobin 28.4 pg (27-33); Mean Platelet Volume 10.5 fL (7.4-10.4); Monocytes # 0.6 10^3/uL (0.2-0.9); Monocytes % 4.1 %; Neutrophils # 11.79 10^3/uL (1.8-7.7); Neutrophils % 85.7 %; Nucleated Red Blood Cells % 0 %; Platelet Count 149 10^3/cmm (157-399); Red Blood Count 3.87 10^6/uL (3.85-5.65); White Blood Count 13.75 10^3/uL (3.29-11.43)
[2023-02-03] MEDS: piperacillin-tazobactam 3.375 GM in sodium chloride 0.9% (plus) 50 ML IV ×3 (04:20→20:05)
[2023-02-03 04:46] LABS: Alanine Aminotransferase 10 U/L (0-33); Albumin Level 3.2 g/dL (3.5-5.2); Alkaline Phosphatase 54 U/L (35-105); Anion Gap 18.2 (5-19); Aspartate Amino Transferase 21 U/L (0-32); Blood Urea Nitrogen 40 mg/dL (8-23); C Reactive Protein 131.5 mg/L (0.0-4.9); Calcium 8.8 mg/dL (8.5-10.5); Carbon Dioxide 24 mmol/L (22-29); Chloride 106 mmol/L (98-107); Globulin 3.5 g/dL (1.3-4.6); Glucose 80 mg/dL (65-115); Magnesium 2.2 mg/dL (1.7-2.3); Osmolality Calculated 309 mOsm/kg (285-295); Phosphorus 2.8 mg/dL (2.5-4.5); Potassium 3.2 mmol/L (3.5-5.1); Sodium 145 mmol/L (136-145); Total Bilirubin 1.1 mg/dL (0.15-1.2); Total Protein 6.7 g/dL (6.6-8.7)
[2023-02-03 04:48] LABS: NT Pro B Type Natriuretic Pept 7712 pg/mL (0-450); Procalcitonin 14.79 ng/mL (0-0.5)
[2023-02-03 04:50] LABS: Lactate (Lactic Acid level) 0.9 mmol/L (0.5-2.2)
[2023-02-03] MEDS: lidocaine 1% 5 ML in potassium chloride premix 100 ML 26.25 ML IV (06:26)
--- NOTE | 2023-02-03 07:00 | XRR_ITS ---
PROCEDURE INFORMATION: Exam: XR Chest Exam date and time: 02/03/2023 6:19 AM Age: 77 years old Clinical indication: Shortness of breath; Additional info: SOB TECHNIQUE: Imaging protocol: Radiologic exam of the chest. Views: 1 view. COMPARISON: CT angio chest PE protcl [id number] 01/31/2023 12:07 PM FINDINGS: Lungs: Stable perihilar infiltrates. Pleural spaces: Unremarkable. No pleural effusion. No pneumothorax. Heart/Mediastinum: See Vasculature finding. Vasculature: Marked cardiomegaly and uncoiling of the thoracic aorta stable. Bones/joints: Unremarkable. Other findings: No new or progressive abnormality. XR/XR chest 1V portable [id number] IMPRESSION: No significant change. Cardiomegaly with multifocal infiltrates, pneumonia versus CHF.
[2023-02-03] MEDS: ipratropium-albuterol 3 mL Neb INHALATION ×4 (08:20→20:56)
[2023-02-03] MEDS: budesonide 0.5 mg/2 mL Neb INHALATION (08:20)
[2023-02-03] MEDS: atorvastatin 40 mg Tablet 20 MG PO (08:24)
[2023-02-03] MEDS: ranolazine (12HR) 500 mg Tablet 1000 MG PO ×2 (08:24→17:42)
[2023-02-03] MEDS: aspirin 81 mg EC Tablet PO (08:25)
[2023-02-03] MEDS: venlafaxine 75 mg Tablet 37.5 MG PO (08:25)
[2023-02-03] MEDS: hydroCHLOROthiazide 25 mg Tablet 12.5 MG PO (09:17)
[2023-02-03] MEDS: metOLazone 5 MG Tablet PO (09:17)
[2023-02-03] MEDS: docusate sodium 100 mg Capsule PO (09:17)
[2023-02-03] MEDS: albumin 12.5 GM/50 ML VIAL IV (09:18)
[2023-02-03] MEDS: FUROsemide 10 mg/mL SDV 4mL 40 MG IVP (09:18)
--- NOTE | 2023-02-03 13:44 | P.PN_ITS ---
Subjective Subjective: Patient was seen this morning, she is much more alert and awake, she can follow commands she is alert to person, to place, not to time, she knows why she is here in the hospital, she tells that she has a pneumonia, currently on nasal cannula, she did use BiPAP throughout the night, Vitals/I&O/Wt Last Vital Signs Temp 97.8 F 02/03/23 08:00 Pulse 58 L 02/03/23 12:00 Resp 28 H 02/03/23 12:00 BP 155/79 02/03/23 12:00 Pulse Ox 89 L 02/03/23 12:00 O2 Del Method Nasal Cannula 02/03/23 11:30 O2 Flow Rate 4 02/03/23 11:30 FiO2 30 02/03/23 04:00 02/02/23 02/03/23 02/03/23 22:59 06:59 14:59 Intake Total 550 / 600 70.833 / 670.833 334.167 / 334.167 Output Total 2775 / 2775 1400 / 4175 Balance -2225 / -2175 -1329.167 / -3504.167 334.167 / 334.167 Weight last 48 hrs Weight 90.582 kg Weight 94.71 kg Physical Exam Const: COMMON NORMALS: no acute distress and patient oriented x3 Resp: COMMON NORMALS: normal respiratory effort, No retractions and No use of accessory muscles AUSCULTATION: crackles and wheezes Cardio: COMMON NORMALS: regular rate, regular rhythm, S1 normal heart sound pr esent and S2 normal heart sound present RATE: regular rate RHYTHM: regular rhythm HEART SOUNDS: S1 normal heart sound present and S2 normal heart sound present GI: COMMON NORMALS: Normal to inspection, nondistended, normoactive bowel sounds present and non-tender Extremity: NARRATIVE EXTREMITY EXAM: 2+ pitting edema Neuro: COMMON NORMALS: patient oriented x3 Psych: COMMON NORMALS: mental status grossly normal Urinary Catheter Management: Begum: Cath Placed During This Visit: yes Reason for Continuing Indwelling Catheter: Accurate Measurement of Urinary Output in Critically Ill Patients Urinary Catheter Date of Insertion: 01/31/23 Data 02/03/23 03:49 02/03/23 03:49 Micro: Microbiology 01/31/23 13:13 Urine Culture - Final Urine,Clean Catch Proteus mirabilis A&P Assessment and plan (1) Acute encephalopathy: (2) Acute hypoxemic respiratory failure: (3) Sepsis: (4) Bilateral pneumonia: (5) ANY (acute kidney injury): (6) NSTEMI (non-ST elevated myocardial infarction): (7) UTI (urinary tract infection): (8) Congestive heart failure (CHF): Plan Acute hypoxic respiratory failure ? Likely second bilateral pneumonia, Pro-Ajay 29, CRP 310 ? Component of systolic CHF, appears fluid overloaded with 1+ pitting edema, elevated BNP -CT angiogram chest . ? [id number]-[id number]-right lung consolidations. Differential considerations include multifocal pneumonia, possibly atelectasis or sequela of aspiration. Recommend imaging followup to resolution to exclude an underlying lesion. 2. ? Mildly prominent mediastinal lymph node is nonspecific but possibly reactive. 3. ? Small hiatal hernia with fluid along the mid and lower esophagus which may be seen in the setting of gastroesophageal reflux or other esophageal dysmotility. ? Plan, ? Sputum cultures, blood cultures, ? Continue Zosyn ? 1 dose IV Lasix today, monitor urine output, Place Begum catheter, urine output 7 L ? Monitor respiratory status closely, ABG, ? Scheduled BiPAP during the night as needed during the day, currently on nasal cannula ? Full code, ? Lovenox for DVT prophylaxis Bilateral pneumonia, and antibiotics as above Proteus Mirabella's UTI, continue Zosyn Ischemic cardiomyopathy, systolic CHF, ? Echo as below ? BNP over 27,000 ? Monitor potassium, monitor creatinine ? 1 dose Lasix today ? Urine output 3 L NSTEMI, ? Type I versus type II, ? Serial EKGs, short troponins, telemetry monitoring ?CONCLUSIONS ?1.? Moderately dilated LV cavity with moderately severely ?reduced LV systolic function LVEF 30-35%.? Inferior and ?anterolateral hypokinesis. ?2.? Moderate aortic stenosis however the measurements are ?underestimated due to low flow low pressure gradient related to ?systolic dysfunction.? Recommend repeat measurements after ?dobutamine infusion if assessment of severity aortic valve ?stenosis is clinically indicated. ?3.? Normal right heart and pulmonary pressures. Acute encephalopathy, likely secondary pneumonia, resolving ? Aspiration precautions, ? Advance diet as tolerated Acute kidney injury, ? Monitor urine output, monitor creatinine, Sepsis, ? Sepsis criteria met, as radiographic evidence of bilateral pneumonia, ? Creatinine 1.0, elevated troponins, encephalopathy, respiratory failure, clinical evidence of respiratory failure includes tachypnea, nasal flaring, intercostal retractions, Full code, ? Lovenox for DVT prophylaxis, Plan for today continue IV antibiotics, will move out of ICU, continue BiPAP therapy, IV replacement potassium, IV Lasix, Attestations Medical Necessity Statement*: Patient requires hospitalization for acute hypoxic respiratory failure, pneumonia, CHF, NSTEMI, Diagnoses Acute encephalopathy G93.40 Acute hypoxemic respiratory failure J96.01 Sepsis A41.9 Bilateral pneumonia J18.9 ANY (acute kidney injury) N17.9 NSTEMI (non-ST elevated myocardial infarction) I21.4 UTI (urinary tract infection) N39.0 Congestive heart failure (CHF) I50.9
[2023-02-03] MEDS: enoxaparin 40 mg/0.4 mL Syringe SUBCUT (15:17)
[2023-02-03] MEDS: amlodipine 5 mg Tablet PO (15:17)
[2023-02-04] VITALS (14 sets, daily range): BP systolic 138–179; BP diastolic 76–85; PULSE 50–84; RESP 15–26; TEMP 36.7–37.2; O2SAT 95–98
[2023-02-04 03:58] LABS: Hematocrit 38.5 % (36-47); Mean Corpuscular HGB Conc 31.2 g/dL (30-55); Mean Corpuscular Hemoglobin 28.5 pg (27-33); Mean Corpuscular Volume 91.4 fl (85-98); Mean Platelet Volume 10.7 fL (7.4-10.4); Platelet Count 151 10^3/cmm (157-399); Red Blood Count 4.21 10^6/uL (3.85-5.65); Red Cell Distribution Width 14.7 % (12.1-15.1); White Blood Count 7.02 10^3/uL (3.29-11.43)
[2023-02-04 04:21] LABS: Alanine Aminotransferase 9 U/L (0-33); Albumin Level 3.4 g/dL (3.5-5.2); Alkaline Phosphatase 77 U/L (35-105); Blood Urea Nitrogen 35 mg/dL (8-23); C Reactive Protein 63.7 mg/L (0.0-4.9); Calcium 9.1 mg/dL (8.5-10.5); Carbon Dioxide 27 mmol/L (22-29); Chloride 105 mmol/L (98-107); Globulin 3.7 g/dL (1.3-4.6); Glucose 94 mg/dL (65-115); Magnesium 2.3 mg/dL (1.7-2.3); Osmolality Calculated 308 mOsm/kg (285-295); Phosphorus 3.2 mg/dL (2.5-4.5); Sodium 145 mmol/L (136-145); Total Bilirubin 0.8 mg/dL (0.15-1.2); Total Protein 7.1 g/dL (6.6-8.7)
[2023-02-04 04:24] LABS: Anion Gap 16.2 (5-19); Aspartate Amino Transferase 19 U/L (0-32); Potassium 3.2 mmol/L (3.5-5.1)
[2023-02-04 04:33] LABS: NT Pro B Type Natriuretic Pept 5877 pg/mL (0-450)
[2023-02-04 04:42] LABS: Absolute Segmented Neutrophil 4.7 10/cmm (1.6-7.1); Eosinophils 0 %; Lymphocytes 22 %; Lymphocytes Absolute 1.5 10^3/cmm (1.2-3.4); Monocytes Absolute 0.4 10^3/cmm (0.1-0.6); Segmented Neutrophils 67 %; Slide Review Slide Review Perform; Total Cells Counted 100 (0-100)
[2023-02-04 04:43] LABS: Absolute Neutrophil 4.7 10^3/cmm (1.4-6.5); Platelet Estimate Normal (Normal)
[2023-02-04] MEDS: piperacillin-tazobactam 3.375 GM in sodium chloride 0.9% (plus) 50 ML IV ×3 (04:46→23:05)
[2023-02-04] MEDS: pantoprazole 40 mg SDV IVP ×2 (05:13→16:01)
[2023-02-04] MEDS: amlodipine 5 mg Tablet PO (05:23)
[2023-02-04] MEDS: ipratropium-albuterol 3 mL Neb INHALATION ×3 (07:20→15:22)
[2023-02-04] MEDS: budesonide 0.5 mg/2 mL Neb INHALATION (07:20)
[2023-02-04] MEDS: docusate sodium 100 mg Capsule PO ×2 (10:47→17:15)
[2023-02-04] MEDS: metOLazone 5 MG Tablet PO (10:47)
[2023-02-04] MEDS: ranolazine (12HR) 500 mg Tablet 1000 MG PO ×2 (10:47→17:15)
[2023-02-04] MEDS: aspirin 81 mg EC Tablet PO (10:47)
[2023-02-04] MEDS: hydroCHLOROthiazide 25 mg Tablet 12.5 MG PO (10:48)
[2023-02-04] MEDS: sertraline 50 mg Tablet 25 MG PO (10:48)
[2023-02-04] MEDS: FUROsemide 10 mg/mL SDV 4mL 40 MG IVP (10:48)
[2023-02-04] MEDS: atorvastatin 40 mg Tablet 20 MG PO (10:48)
[2023-02-04] MEDS: lidocaine 1% 5 ML in potassium chloride premix 100 ML 26.25 ML IV (10:49)
--- NOTE | 2023-02-04 13:45 | PC.SOCIAL ---
IMM Update pg 2 of IMM updated and reviewed w/ patient. Copy provided and copy dated, initialed and placed in chart.
--- NOTE | 2023-02-04 15:55 | PM.PN ---
Subjective Subjective: Patient was seen this morning, she is alert to person, place, to time she can follow commands, she tells me she feels significantly better, no fevers, chills, no cough, no abdominal pain, she continues to have edema but improving, Vitals/I&O/Wt Last Vital Signs Temp 98.0 F 02/04/23 11:23 Pulse 65 02/04/23 15:22 Resp 18 02/04/23 15:22 BP 139/76 02/04/23 11:23 Pulse Ox 98 02/04/23 15:22 O2 Del Method Nasal Cannula 02/04/23 15:22 O2 Flow Rate 2 02/04/23 15:22 FiO2 30 02/04/23 04:00 02/04/23 02/04/23 02/04/23 06:59 14:59 22:59 Intake Total 50 / 434.167 290 / 290 Output Total 400 / 4300 1800 / 1800 Balance -350 / -3865.833 -1510 / -1510 Weight last 48 hrs Weight 85.786 kg Weight 90.582 kg Physical Exam Const: COMMON NORMALS: no acute distress and patient oriented x3 Resp: COMMON NORMALS: normal respiratory effort, No retractions, No use of accessory muscles and clear to auscultation bilaterally AUSCULTATION: clear to auscultation bilaterally Cardio: COMMON NORMALS: regular rate, regular rhythm, S1 normal heart sound present and S2 normal heart sound present RATE: regular rate RHYTHM: regular rhythm HEART SOUNDS: S1 normal heart sound present and S2 normal heart sound present GI: COMMON NORMALS: Normal to inspection, nondistended, normoactive bowel sounds present and non-tender Extremity: NARRATIVE EXTREMITY EXAM: 1+ pitting edema Neuro: COMMON NORMALS: patient oriented x3 Psych: COMMON NORMALS: mental status grossly normal Urinary Catheter Management: Begum: Cath Placed During This Visit: yes Reason for Continuing Indwelling Catheter: Acute Urinary Retention or Obstruction Urinary Catheter Date of Insertion: 01/31/23 Data 02/04/23 03:34 02/04/23 03:34 A&P Assessment and plan (1) Acute encephalopathy: (2) Acute hypoxemic respiratory failure: (3) Sepsis: (4) Bilateral pneumonia: (5) ANY (acute kidney injury): (6) NSTEMI (non-ST elevated myocardial infarction): (7) UTI (urinary tract infection): (8) Congestive heart failure (CHF): Plan Acute hypoxic respiratory failure ? Likely second bilateral pneumonia, Pro-Ajay 29, CRP 310 ? Component of systolic CHF, appears fluid overloaded with 1+ pitting edema, elevated BNP -CT angiogram chest . ? [id number]-[id number]-right lung consolidations. Differential considerations include multifocal pneumonia, possibly atelectasis or sequela of aspiration. Recommend imaging followup to resolution to exclude an underlying lesion. 2. ? Mildly prominent mediastinal lymph node is nonspecific but possibly reactive. 3. ? Small hiatal hernia with fluid along the mid and lower esophagus which may be seen in the setting of gastroesophageal reflux or other esophageal dysmotility. ? Plan, ? Sputum cultures, blood cultures, ? Continue Zosyn ? 1 dose IV Lasix today, monitor urine output, Place Begum catheter, urine output 11 L ? Monitor respiratory status closely, ABG, ? Scheduled BiPAP during the night as needed during the day, currently on nasal cannula ? Full code, ? Lovenox for DVT prophylaxis Bilateral pneumonia, and antibiotics as above Proteus Mirabella's UTI, continue Zosyn Ischemic cardiomyopathy, systolic CHF, ? Echo as below ? BNP over 27,000 ? Monitor potassium, monitor creatinine ? 1 dose Lasix today ? Urine output 3 L NSTEMI, ? Type I versus type II, ? Serial EKGs, short troponins, telemetry monitoring ?CONCLUSIONS ?1.? Moderately dilated LV cavity with moderately severely ?reduced LV systolic function LVEF 30-35%.? Inferior and ?anterolateral hypokinesis. ?2.? Moderate aortic stenosis however the measurements are ?underestimated due to low flow low pressure gradient related to ?systolic dysfunction.? Recommend repeat measurements after ?dobutamine infusion if assessment of severity aortic valve ?stenosis is clinically indicated. ?3.? Normal right heart and pulmonary pressures. Acute encephalopathy, likely secondary pneumonia, resolving ? Aspiration precautions, ? Advance diet as tolerated Acute kidney injury, ? Monitor urine output, monitor creatinine, Sepsis, ? Sepsis criteria met, as radiographic evidence of bilateral pneumonia, ? Creatinine 1.0, elevated troponins, encephalopathy, respiratory failure, clinical evidence of respiratory failure includes tachypnea, nasal flaring, intercostal retractions, Full code, ? Lovenox for DVT prophylaxis, Plan for today patient is -11 L, continue IV diuresis, continue clinical monitoring, Attestations Medical Necessity Statement*: Patient requires hospitalization for pneumonia, required IV antibiotics, fluid overload requiring diuresis, -11 L so far continue Lasix therapy monitor kidney function Diagnoses Acute encephalopathy G93.40 Acute hypoxemic respiratory failure J96.01 Sepsis A41.9 Bilateral pneumonia J18.9 ANY (acute kidney injury) N17.9 NSTEMI (non-ST elevated myocardial infarction) I21.4 UTI (urinary tract infection) N39.0 Congestive heart failure (CHF) I50.9
[2023-02-04] MEDS: enoxaparin 40 mg/0.4 mL Syringe SUBCUT (16:00)
[2023-02-05] VITALS: BP 132/68; PULSE 58; RESP 16; O2SAT 99
[2023-02-05 00:15] VITALS: PULSE 55; RESP 20; O2SAT 98
[2023-02-05] MEDS: pantoprazole 40 mg SDV IVP (06:30)
[2023-02-05] MEDS: amlodipine 5 mg Tablet PO (06:48)
[2023-02-05] MEDS: piperacillin-tazobactam 3.375 GM in sodium chloride 0.9% (plus) 50 ML IV (06:49)
[2023-02-05 08:00] VITALS: PULSE 57; RESP 18; O2SAT 97
[2023-02-05] MEDS: hydroCHLOROthiazide 25 mg Tablet 12.5 MG PO (08:11)
[2023-02-05] MEDS: atorvastatin 40 mg Tablet 20 MG PO (08:11)
[2023-02-05] MEDS: sertraline 50 mg Tablet 25 MG PO (08:11)
[2023-02-05] MEDS: ranolazine (12HR) 500 mg Tablet 1000 MG PO (08:11)
[2023-02-05] MEDS: docusate sodium 100 mg Capsule PO (08:11)
[2023-02-05] MEDS: aspirin 81 mg EC Tablet PO (08:11)
[2023-02-05 08:27] LABS: Alanine Aminotransferase 11 U/L (0-33); Albumin Level 3.1 g/dL (3.5-5.2); Alkaline Phosphatase 56 U/L (35-105); Aspartate Amino Transferase 15 U/L (0-32); Blood Urea Nitrogen 41 mg/dL (8-23); C Reactive Protein 33.6 mg/L (0.0-4.9); Carbon Dioxide 28 mmol/L (22-29); Chloride 101 mmol/L (98-107); Globulin 3.5 g/dL (1.3-4.6); Glucose 102 mg/dL (65-115); Magnesium 2.2 mg/dL (1.7-2.3); Osmolality Calculated 306 mOsm/kg (285-295); Phosphorus 3.3 mg/dL (2.5-4.5); Sodium 143 mmol/L (136-145); Total Bilirubin 0.6 mg/dL (0.15-1.2); Total Protein 6.6 g/dL (6.6-8.7)
[2023-02-05 08:28] LABS: NT Pro B Type Natriuretic Pept 4252 pg/mL (0-450)
[2023-02-05] MEDS: ipratropium-albuterol 3 mL Neb INHALATION ×2 (08:49→11:07)
[2023-02-05] MEDS: budesonide 0.5 mg/2 mL Neb INHALATION (08:50)
[2023-02-05 09:19] LABS: Hematocrit 38.4 % (36-47); Mean Corpuscular HGB Conc 31.8 g/dL (30-55); Mean Corpuscular Hemoglobin 28.8 pg (27-33); Mean Corpuscular Volume 90.8 fl (85-98); Mean Platelet Volume 10.9 fL (7.4-10.4); Platelet Count 167 10^3/cmm (157-399); Red Blood Count 4.23 10^6/uL (3.85-5.65); Red Cell Distribution Width 14.7 % (12.1-15.1); White Blood Count 7.02 10^3/uL (3.29-11.43)
[2023-02-05 09:31] LABS: Slide Review Slide Review Perform
[2023-02-05 11:09] VITALS: PULSE 55; RESP 18; O2SAT 95
--- NOTE | 2023-02-05 11:44 | P.DS_ITS ---
Discharge Providers Date of Admission: 01/31/23 11:08 Date of Discharge: February 05, 2023 Attending Provider at Admission: Tod Norman MD Attending Provider at Discharge: Tod Norman MD Primary Care Provider: Clinton Valdez Diagnoses at Discharge Discharge Diagnosis (1) Acute encephalopathy: Status: Acute (2) Acute hypoxemic respiratory failure: Status: Acute (3) Sepsis: Status: Acute (4) Bilateral pneumonia: Status: Acute (5) ANY (acute kidney injury): Status: Acute (6) NSTEMI (non-ST elevated myocardial infarction): Status: Acute (7) UTI (urinary tract infection): Status: Acute (8) Congestive heart failure (CHF): Status: Acute Reason for Visit Reason for Visit: shortness of breath Hospital Course Hospital Course Jovany Jacobs is a 77 year old female with a past medical history of CAD, history of stenting to proximal LAD, and circumflex, 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 Currently patient is alert to person, not not to place, not to time, she is encephalopathic, does not follow commands, she really does not have any complaints but has diffuse wheezing in all lung [place], tachypnea, respiratory rate 30s, she is on 4 L, she looks mildly uncomfortable, nasal flaring, int ercostal retractions, I have had respiratory therapy get a ABG for me, I spoke to [facility] facility, nursing facility tells me that patient remains bedbound, she needs assistance for activities of daily living can feed herself, she is alert oriented x4 on most days, no evidence of dementia, they tell me that yesterday, she started having coughing, with complaints of wheezing, increasing oxygen requirements, no known aspiration events, no known falls this morning she had persistent wheezing, cough, with increased oxygen requirement so she was sent to [facility] for evaluation. In the ER she is in mild respiratory distress, will order ABG, CT angiogram of the chest, started on broad-spectrum antibiotic therapy, moved to ICU for close monitoring, order troponin series, D-dimer, troponin series, blood cultures, sputum cultures, respiratory viral panel, concerns for aspiration keep n.p.o., hold off on IV fluids BNP over 10,000, does have 1+ pitting edema bilateral lower extremities, has evidence of sepsis, she is already received Lasix, hold off on further Lasix therapy, given creatinine of 1.0, lactic acid ordered, CRP, Pro-Ajay ordered, cardiac echocardiogram ordered This is a 77-year-old female, who presents to [facility] for acute hypoxic respiratory failure secondary to bilateral pneumonia, with systolic CHF exacerbation, fluid overload, For her bilateral pneumonia, she was monitored with intermittent BiPAP therapy, oxygen therapy, so far blood cultures have been negative, she remains afebrile, overall clinically improved, discharged on 5 remaining days of cefdinir, For her systolic CHF exacerbation, she received inpatient diuresis, diuresed over 12 L, overall clinically improved, discharged on Lasix therapy potassium therapy with a close follow-up with primary care provider as outpatient follow- up with cardiology in 1 week, recheck BMP and kidney function in 48 hours, For NSTEMI, history of ischemic cardiomyopathy, history of LAD stenting, 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 Moderately dilated LV cavity with moderately severely ?reduced LV systolic function LVEF 30-35%.? Inferior and ?anterolateral hypokinesis. ?2.? Moderate aortic stenosis however the measurements are ?underestimated due to low flow low pressure gradient related to ?systolic dysfunction.? Recommend repeat measurements after ?dobutamine infusion if assessment of severity aortic valve ?stenosis is clinically indicated. ?3.? Normal right heart and pulmonary pressures. ? Do not have a prior echocardiogram to compare to, as patient was originally from [facility], ? But has a history of ischemic cardiomyopathy, with a EF around 30% ? Discussed with patient about medical management versus intervention, agreeable for medical management for now, discharged on aspirin, statin, beta-jo-ann, Plavix with close follow-up with cardiology as outpatient, ? If any recurrent chest pain to go to the emergency room, Patient was found to have a Proteus UTI, managed with antibiotic therapy, discharged on 5 remaining days of cefdinir, Acute encephalopathy secondary to pneumonia, UTI, respiratory failure, overall resolved, ANY, resolved, ? Sepsis secondary to pneumonia, UTI, resolved, Physical Exam Const: COMMON NORMALS: no acute distress ORIENTATION/CONSCIOUSNESS: Yes awake, Yes oriented to person and Yes oriented to place; not oriented to time Lymph: LYMPHATIC: no lymphadenopathy noted Resp: COMMON NORMALS: normal respiratory effort, No retractions, No use of accessory muscles and clear to auscultation bilaterally AUSCULTATION: clear to auscultation bilaterally Cardio: COMMON NORMALS: regular rate, regular rhythm, S1 normal heart sound present, S2 normal heart sound present, No gallops present (Cardio), No clicks present (Cardio) and No murmurs present (Cardio) RATE: regular rate RHYTHM: regular rhythm HEART SOUNDS: S1 normal heart sound present and S2 normal heart sound present GI: COMMON NORMALS: Normal to inspection, nondistended, normoactive bowel sounds present and non-tender Extremity: COMMON NORMALS: no pedal edema Neuro: SENSORIUM/ORIENTATION: Yes oriented to person, Yes oriented to place and No oriented to time Urinary Catheter Management: Begum: Cath Placed During This Visit: yes Reason for Continuing Indwelling Catheter: Other Urinary Catheter Date of Insertion: 01/31/23 Discharge Data Studies Completed and Pending Completed Studies During Hospitalization Category Date Time Status CT angio chest PE protcl [id number] Stat Cat Scan 01/31/23 11:31 Completed XR chest 1V portable [id number] Routine Exams 02/03/23 07:00 Completed XR chest 1V portable [id number] Stat Exams 01/31/23 08:45 Completed CV. echo complete* [id number] Stat Ultrasound 01/31/23 12:49 Completed Pending at discharge Category Date Time Status Blood Culture Stat Lab 01/31/23 13:24 Results C Reactive Protein AM LABS Lab 02/06/23 04:00 Ordered COVID [SARS Covid-2 Antigen] Routine Lab 02/05/23 06:00 Uncollected Complete Blood Count w/Auto AM LABS Lab 02/06/23 04:00 Ordered Comprehensive Metabolic Panel AM LABS Lab 02/06/23 04:00 Ordered Magnesium AM LABS Lab 02/06/23 04:00 Ordered NT Pro B Type Natriuretic Pept QAM Lab 02/06/23 06:00 Ordered Phosphorus AM LABS Lab 02/06/23 04:00 Ordered Sputum Culture and Gram Stain Stat Lab 01/31/23 11:53 Uncollected UA w/Reflex to Microscope [Urinalysis] Routine Lab 02/05/23 09:59 Uncollected Urinalysis Routine Lab 02/05/23 11:28 Uncollected Radiology Impressions Chest CTA 01/31/23 11:31 IMPRESSION: 1. Fdxi-[id number]-right lung consolidations. Differential considerations include multifocal pneumonia, possibly atelectasis or sequela of aspiration. Recommend imaging followup to resolution to exclude an underlying lesion. 2. Mildly prominent mediastinal lymph node is nonspecific but possibly reactive. 3. Small hiatal hernia with fluid along the mid and lower esophagus which may be seen in the setting of gastroesophageal reflux or other esophageal dysmotility. 4. Mottled lucent appearance at multiple bilateral posterior ribs favored to represent chronic posttraumatic sequela, although possibility for metastatic disease. Query history of malignancy. 5. Mild anterior compression deformities of the C7 and T2-5 vertebral bodies, age indeterminate. 6. Pulmonary arterial dilatation may be seen in the setting of pulmonary hypertension. 7. Indeterminate 1.3 cm left adrenal nodule. Consider 12 month follow-up adrenal CT. (Reference: Tatyana) COMMENTS: Consistent with the [employer]'s Incidental Findings Committee white paper (J Am Dana Radiol 2015): In patients aged 35 years and older with an incidental thyroid nodule equal to or greater than 1.[address], MRI or extrathyroidal US, further evaluation with dedicated thyroid US is recommended for patients with normal life expectancy and without comorbidities. For smaller nodules without suspicious features, no further evaluation or follow up is recommended. REFERENCES: Tatyana MARTINEZ, et al. Management of Incidental Adrenal Masses: A White Paper of the ACR Incidental Findings Committee. J Am Dana Radiol. 2017;14(8):5527-0149. Chest X-Ray 02/03/23 07:00 IMPRESSION: No significant change. Cardiomegaly with multifocal infiltrates, pneumonia versus CHF. Laboratory Results WBC 7.02 10^3/uL (3.29-11.43) 02/05/23 04:06 RBC 4.23 10^6/uL (3.85-5.65) 02/05/23 04:06 Hgb 12.20 g/dL (11.27-16.99) 02/05/23 04:06 Hct 38.4 % (36-47) 02/05/23 04:06 MCV 90.8 fl (85-98) 02/05/23 04:06 MCH 28.8 pg (27-33) 02/05/23 04:06 MCHC 31.8 g/dL (30-55) 02/05/23 04:06 RDW 14.7 % (12.1-15.1) 02/05/23 04:06 Plt Count 167 10^3/cmm (157-399) 02/05/23 04:06 MPV 10.9 fL (7.4-10.4) H 02/05/23 04:06 Neut % (Auto) 85.7 % 02/03/23 03:49 Lymph % (Auto) Not Reportable 02/05/23 04:06 [place] % (Auto) Not Reportable 02/05/23 04:06 Eos % (Auto) 0.8 % 02/03/23 03:49 Baso % (Auto) 0.6 % 02/03/23 03:49 Neut # (Auto) 11.79 10^3/uL (1.8-7.7) H 02/03/23 03:49 Lymph # (Auto) Not Reportable 02/05/23 04:06 [place] # (Auto) Not Reportable 02/05/23 04:06 Eos # (Auto) 0.1 10^3/uL (0.0-0.8) 02/03/23 03:49 Baso # (Auto) 0.1 10^3/uL (0.0-0.1) 02/03/23 03:49 Nucleated RBC % (auto) 0 % 02/03/23 03:49 Total Counted 100 (0-100) 02/04/23 03:34 Atypical Lymphs % 0.0 % (0-5) 02/04/23 03:34 Absolute Neutrophils 4.7 10^3/cmm (1.4-6.5) 02/04/23 03:34 Segmented Neutrophils 67 % 02/04/23 03:34 Abs Segm Neuts (Man) 4.7 10/cmm (1.6-7.1) 02/04/23 03:34 Band Neutrophils 0.0 % 02/04/23 03:34 Abs Band Neuts (Man) 0.0 10^3/cmm (0.0-1.2) 02/04/23 03:34 Absolute Lymphocytes 1.5 10^3/cmm (1.2-3.4) 02/04/23 03:34 Lymphocytes (Manual) 22 % 02/04/23 03:34 Monocytes (Manual) 5.0 % 02/04/23 03:34 Absolute Monocytes 0.4 10^3/cmm (0.1-0.6) 02/04/23 03:34 Eosinophils (Manual) 0 % 02/04/23 03:34 Absolute Eosinophils 0.0 10^3/cmm (0.0-0.7) 02/04/23 03:34 Basophils (Manual) 0.0 % 02/04/23 03:34 Absolute Basophils 0.0 10^3/cmm (0.0-0.2) 02/04/23 03:34 Metamyelocytes 1.0 % 02/04/23 03:34 Myelocytes 5.0 % 02/04/23 03:34 Nucleated RBCs # 0.0 /100WBC 02/03/23 03:49 Platelet Estimate Normal (Normal) 02/04/23 03:34 PT 14.70 SECONDS (12.1-14.9) 01/31/23 13:20 INR 1.11 (0.8-1.2) 01/31/23 13:20 D-Dimer 3.25 ug/mLFEU (0-0.59) H 01/31/23 09:07 Specimen Type Arterial 01/31/23 13:35 Sample Site Brachial, right 01/31/23 13:35 ABG pH 7.46 (7.35-7.45) H 01/31/23 13:35 ABG pCO2 36.2 mmHg (35-45) 01/31/23 13:35 ABG pO2 57.5 mmHg (80.0-100.0) L 01/31/23 13:35 ABG PO2/FiO2 Ratio 0 01/31/23 13:35 ABG HCO3 25.5 mmol/L (22-26) 01/31/23 13:35 ABG Base Excess 1.8 mmol/L (-2.0-2.0) 01/31/23 13:35 Shawn Test N/a 01/31/23 13:35 Hematocrit 39.3 % (37-47) 01/31/23 13:35 O2 Delivery Device Nc 01/31/23 13:35 O2 Liters/Min 4.0 % 01/31/23 13:35 FiO2 36.0 % 01/31/23 13:35 Trouble Operator ID glc 01/31/23 13:35 Sodium 143 mmol/L (136-145) 02/05/23 04:06 Potassium 3.0 mmol/L (3.5-5.1) L 02/05/23 04:06 Chloride 101 mmol/L (98-107) 02/05/23 04:06 Carbon Dioxide 28 mmol/L (22-29) 02/05/23 04:06 Anion Gap 17.0 (5-19) 02/05/23 04:06 BUN 41 mg/dL (8-23) H 02/05/23 04:06 Creatinine 1.3 mg/dL (0.5-0.9) H 02/05/23 04:06 GFR Calculation Not Reportable 02/05/23 04:06 Glucose 102 mg/dL (65-115) 02/05/23 04:06 Estimat Average Glucose 88 01/31/23 09:07 Hemoglobin A1c 4.7 % (4.0-6.0) 01/31/23 09:07 Calculated Osmolality 306 mOsm/kg (285-295) H 02/05/23 04:06 Lactic Acid 2.9 mmol/L (0.5-2.2) H 01/31/23 13:20 Lactate 0.9 mmol/L (0.5-2.2) 02/03/23 03:49 Calcium 9.0 mg/dL (8.5-10.5) 02/05/23 04:06 Phosphorus 3.3 mg/dL (2.5-4.5) 02/05/23 04:06 Magnesium 2.2 mg/dL (1.7-2.3) 02/05/23 04:06 Total Bilirubin 0.6 mg/dL (0.15-1.2) 02/05/23 04:06 AST 15 U/L (0-32) 02/05/23 04:06 ALT 11 U/L (0-33) 02/05/23 04:06 Alkaline Phosphatase 56 U/L (35-105) 02/05/23 04:06 Troponin T Baseline 39 ng/L (0-10) H 01/31/23 09:07 Troponin T 120 Minute 41.34 ng/L (0-10) H 01/31/23 11:33 Delta Troponin T 2.34 ABS# (0-10) 01/31/23 11:33 Troponin T Hi Sens 6Hr 41.56 ng/L (0-10) H 01/31/23 15:45 Troponin T Hi Sens 6Hr Delta 2.56 ng/L (0-12) 01/31/23 15:45 C-Reactive Protein 33.6 mg/L (0.0-4.9) H 02/05/23 04:06 NT-Pro-B Natriuret Pep 4252 pg/mL (0-450) H 02/05/23 04:06 Total Protein 6.6 g/dL (6.6-8.7) 02/05/23 04:06 Albumin 3.1 g/dL (3.5-5.2) L 02/05/23 04:06 Globulin 3.5 g/dL (1.3-4.6) 02/05/23 04:06 Triglycerides 60 mg/dL (0-150) 01/31/23 13:20 Cholesterol 151 mg/dL (0-200) 01/31/23 13:20 LDL Cholesterol, Calc 81 mg/dL (50-129) 01/31/23 13:20 HDL Cholesterol 58 mg/dL (60-100) L 01/31/23 13:20 LDL/HDL Ratio 1.40 RATIO (0.00-3.22) 01/31/23 13:20 Cholesterol/HDL Ratio 2.60 mg/dL (0.0-4.40) 01/31/23 13:20 Procalcitonin 14.79 ng/mL (0-0.5) H 02/03/23 03:49 TSH 0.54 uIU/mL (0.27-4.20) 01/31/23 13:20 Urine Color Yellow (Yellow) 01/31/23 13:13 Urine Appearance Sl hazy (CLEAR) A 01/31/23 13:13 Urine pH 5 (5-7) 01/31/23 13:13 Ur Specific [place] 1.005 (1.005-1.030) 01/31/23 13:13 Urine Protein Neg (Negative) 01/31/23 13:13 Urine Glucose (UA) Norm (Normal) 01/31/23 13:13 Urine Ketones Negative (Negative) 01/31/23 13:13 Urine Blood 2+ (Negative) H 01/31/23 13:13 Urine Nitrate Negative (Negative) 01/31/23 13:13 Urine Bilirubin Neg (Negative) 01/31/23 13:13 Urine Urobilinogen Norm mg/dL (Negative) 01/31/23 13:13 Ur Leukocyte Esterase 2+ (Negative) H 01/31/23 13:13 Urine RBC 0-4 /hpf (0-2) H 01/31/23 13:13 Urine WBC 25-40 /hpf (0-5) H 01/31/23 13:13 Ur Squamous Epith Cells 5-10 /hpf (0-5) H 01/31/23 13:13 Amorphous Sediment Not Reportable 01/31/23 13:13 Urine Bacteria 3+ /hpf (NONE) H 01/31/23 13:13 Nasal Influ A H1 2009 PCR Not detected (NOT DETECT) 01/31/23 11:50 Vancomycin Trough 16.2 ug/mL (10-15) H 02/02/23 17:20 Adenovirus (PCR) Not detected (NOT DETECT) 01/31/23 11:50 C. pneumoniae DNA (PCR) Not detected (NOT DETECT) 01/31/23 11:50 Coronavirus 229E (PCR) Not detected (NOT DETECT) 01/31/23 11:50 Human Metapneumovir PCR Not detected (NOT DETECT) 01/31/23 11:50 Influenza A (H1) PCR Not detected (NOT DETECT) 01/31/23 11:50 Influenza A (H3) PCR Not detected (NOT DETECT) 01/31/23 11:50 Influenza Type A (PCR) Not detected (NOT DETECT) 01/31/23 11:50 Influenza Type B (PCR) Not detected (NOT DETECT) 01/31/23 11:50 M. pneumoniae (PCR) Not detected (NOT DETECT) 01/31/23 11:50 Parainfluenza 1 (PCR) Not detected (NOT DETECT) 01/31/23 11:50 Parainfluenza 2 (PCR) Not detected (NOT DETECT) 01/31/23 11:50 Parainfluenza 3 (PCR) Not detected (NOT DETECT) 01/31/23 11:50 Parainfluenza 4 (PCR) Not detected (NOT DETECT) 01/31/23 11:50 RSV Type A (PCR) Not detected (NOT DETECT) 01/31/23 11:50 RSV Type B (PCR) Not detected (NOT DETECT) 01/31/23 11:50 Entero/Rhino (PCR) Not detected (NOT DETECT) 01/31/23 11:50 SARS-CoV-2 (PCR) Not detected (NOT DETECT) 01/31/23 11:50 Vitals Last Vital Signs Temp 98.1 F 02/04/23 21:12 Pulse 55 L 02/05/23 11:09 Resp 18 02/05/23 11:09 BP 132/68 02/05/23 00:00 Pulse Ox 95 02/05/23 11:09 O2 Del Method Nasal Cannula 02/05/23 11:09 O2 Flow Rate 2 02/05/23 11:09 FiO2 30 02/05/23 00:15 Discharge Plan Discharge Patient Disposition: Home Condition: Stable Prescriptions: New clopidogrel [Plavix] 75 mg tablet 75 mg PO DAILY 30 Days Qty: 30 0RF cefdinir 300 mg capsule 300 mg PO BID 5 Days Qty: 10 0RF furosemide [Lasix] 40 mg tablet 40 mg PO DAILY 30 Days Qty: 30 0RF potassium chloride [Klor-Con M20] 20 mEq tablet,ER particles/crystals 20 meq PO DAILY 30 Days Qty: 30 0RF Continued sennosides [Natural Senna Laxative] 8.6 mg tablet 8.6 mg PO DAILY PRN (Reason: Constipation) amlodipine 5 mg tablet 5 mg PO QAM aspirin [Adult Low Dose Aspirin] 81 mg tablet,delayed release (DR/EC) 81 mg PO DAILY nitroglycerin [Nitrostat] 0.4 mg tablet, sublingual 0.4 mg sublingual Q5M PRN (Reason: Chest Pain) Rx Instructions: do not exceed 3 doses per episode albuterol sulfate 90 mcg/actuation HFA aerosol inhaler 2 puff inhalation Q6H PRN (Reason: Wheezing) acetaminophen 325 mg Tablet 650 mg PO QID PRN (Reason: Pain) hydrocodone-acetaminophen 5-325 mg tablet 1 tab PO Q6H PRN (Reason: Pain) carvedilol 3.125 mg tablet 3.125 mg PO BID pantoprazole 20 mg tablet,delayed release (DR/EC) 20 mg PO DAILY Milk of Magnesia 400 mg/5 mL Suspension 30 ml PO DAILY PRN (Reason: Constipation) meclizine 25 mg Tablet 25 mg PO DAILY PRN (Reason: Dizziness) bisacodyl 10 mg Suppository 10 mg LA DAILY PRN (Reason: Constipation) Fleet Enema 19-7 gram/118 mL Enema 118 ml LA DAILY PRN (Reason: Constipation) sertraline 25 mg tablet 25 mg PO DAILY nystatin 100,000 unit/gram Powder 1 applic TOPICAL BID PRN (Reason: Rash) Miralax 17 gram/dose Powder 4 g PO DAILY PRN (Reason: Constipation) fluticasone propionate 50 mcg/actuation spray,suspension 2 spray INTRANASAL DAILY loratadine 10 mg Tablet 10 mg PO DAILY hydrochlorothiazide 12.5 mg tablet 12.5 mg PO DAILY ranolazine 1,000 mg tablet extended release 12 hr 1,000 mg PO BID Discharge Orders: Discharge Order (Routine); Ordered 02/05/23 Ordered By: Tod Norman Referrals: Jonathan Plunkett MD [Physician] - 1 week Clinton Valdez [Primary Care Provider] - Discharge Diet: Cardiac Discharge Activity: Resume usual activity Patient Instructions: Heart Failure (DC), CHF Stoplight, Opioid Safety, Post Heart Attack Stoplight Activity Restrictions/Additional Instructions: ? Please limit fluid intake between 1.5 to 2 L of fluid a day, ? Please take Lasix 40 mg once daily with potassium replacement therapy, ? Please recheck kidney function and potassium in 48 hours, ? Please monitor for chest pain if so please bring back to the emergency room, ? Follow-up with cardiology in 1 week, ? Please monitor for UTI, will be discharged on 5 more days of p.o. antibiotics, if any recurrent UTI-like symptoms please come back to emergency room ? For pneumonia please continue to monitor albuterol as needed, for shortness of breath, Discharge Attestations Time Spent in Discharge Care*: greater than 30 min Quality Metrics Clinical Quality Measures [ No reported AMI, CVA or VTE this stay] Coding Level of Care Code 00485 Total time (in minutes) for Discharge: 45 Diagnoses Acute encephalopathy G93.40 Acute hypoxemic respiratory failure J96.01 Sepsis A41.9 Bilateral pneumonia J18.9 ANY (acute kidney injury) N17.9 NSTEMI (non-ST elevated myocardial infarction) I21.4 UTI (urinary tract infection) N39.0 Congestive heart failure (CHF) I50.9
[2023-02-05] MEDS: lidocaine 1% 5 ML in potassium chloride premix 100 ML 26.25 ML IV (12:15)
[2023-02-05] MEDS: FUROsemide 10 mg/mL SDV 4mL 40 MG IVP (12:16)
[2023-02-05] MEDS: potassium chloride ER 20 mEq Tablet PO (12:16)
[2023-02-05] MEDS: clopidogrel 75 mg Tablet PO (12:16)
[2023-02-05 12:19] LABS: Blood Urine Neg (Negative); Glucose Urine UA Norm (Normal); Ketones Urine 1+ (Negative); Nitrate Urine Negative (Negative); Protein Urine Trace (Negative); Urine Appearance Clear (CLEAR); Urine Color Yellow (Yellow); pH Urine 5 (5-7)
[2023-02-05 12:20] LABS: Add Urine Microscopic? YES; Bilirubin Urine Neg (Negative); Leukocyte Esterase Urine Trace (Negative); Urobilinogen Urine Norm (Negative)
[2023-02-05 12:23] LABS: Add Urine Culture? No; Hyaline Casts Urine 0-4 /lpf; Mucus Urine 1+ /hpf; RBC Urine 0-4 /hpf (0-2); SARS Covid-2 Antigen negative (Negative); Squamous Epithelial Cell Urine 0-4 /hpf (0-5); Transitional Epi Cells Urine 0-4 /hpf
--- NOTE | 2023-02-05 14:42 | PC.NURSE ---
Report called in to Song at [facility]. IV removed. Dr. Norman ok'd IV potassium being stopped for DC to longterm. EMS transports pt back to [facility].
[2023-02-05 14:45] VITALS: PULSE 55; RESP 18; O2SAT 95
== END 2023-02-05 14:50 | disposition skilled nursing facility (03) | DRG 871 ==
LOC: ER 09:10 → ICU 12:51 → MEDSURG 02-03 14:15
PROVIDERS: Admitting Provider Family Medicine; Emergency Provider Family Medicine; PCP Family Medicine; Visit Provider Family Medicine
DX: A41.9 Sepsis, unspecified organism (principal); I21.4 Non-ST elevation (NSTEMI) myocardial infarction; J18.9 Pneumonia, unspecified organism; J96.01 Acute respiratory failure with hypoxia; I50.21 Acute systolic (congestive) heart failure; G93.49 Other encephalopathy; J44.0 Chronic obstructive pulmonary disease with (acute) lower respiratory infection; N17.9 Acute kidney failure, unspecified; N39.0 Urinary tract infection, site not specified; I13.0 Hypertensive heart and chronic kidney disease with heart failure and stage 1 through stage 4 chronic kidney disease, or unspecified chronic kidney disease; B96.4 Proteus (mirabilis) (morganii) as the cause of diseases classified elsewhere; N18.9 Chronic kidney disease, unspecified; I25.10 Atherosclerotic heart disease of native coronary artery without angina pectoris; I25.5 Ischemic cardiomyopathy; K21.9 Gastro-esophageal reflux disease without esophagitis; E78.5 Hyperlipidemia, unspecified; G47.33 Obstructive sleep apnea (adult) (pediatric); Z79.82 Long term (current) use of aspirin; I25.2 Old myocardial infarction; Z11.52 Encounter for screening for COVID-19; Z86.73 Personal history of transient ischemic attack (TIA), and cerebral infarction without residual deficits; Z95.5 Presence of coronary angioplasty implant and graft; Z87.440 Personal history of urinary (tract) infections
CPT/HCPCS: 36415; 36600; 51702; 71045; 71275; 80053; 80061; 80202; 81001; 81015; 82803; 83036; 83605; 83735; 83880; 84100; 84145; 84443; 84484; 85007; 85025; 85378; 85610; 86140; 87040; 87077; 87086; 87186; 87426; 87486; 87581; 87633; 92526; 92610; 93005; 93010; 93306; 94640; 94660; 96372; 96374; 96375; 96376; 99291; C9113; J1100; J1200; J1650; J1940; J2543; J3370; J3480; J7626; P9047; Q9967

== ENCOUNTER → 2023-02-14 10:12 | Outpatient (BNVA) | payer MEDICARE, MEDICAID, SELFPAY | PROVIDERS: PCP Family Medicine; Visit Provider Internal Medicine Cardiovascular Disease | DX: I11.0 Hypertensive heart disease with heart failure (principal); I50.22 Chronic systolic (congestive) heart failure; I25.5 Ischemic cardiomyopathy; I25.10 Atherosclerotic heart disease of native coronary artery without angina pectoris; E78.49 Other hyperlipidemia | CPT/HCPCS: 99214 ==

== ENCOUNTER → 2023-05-16 10:00 | Outpatient (BNVA) | payer MEDICARE, MEDICAID, SELFPAY | PROVIDERS: Visit Provider Nurse Practitioner Family | DX: I13.0 Hypertensive heart and chronic kidney disease with heart failure and stage 1 through stage 4 chronic kidney disease, or unspecified chronic kidney disease (principal); I50.22 Chronic systolic (congestive) heart failure; N18.9 Chronic kidney disease, unspecified; M24.549 Contracture, unspecified hand | CPT/HCPCS: 99214 ==

== ENCOUNTER → 2023-06-11 14:22 | Outpatient (BNVA) | payer MEDICARE, MEDICAID, SELFPAY | PROVIDERS: Visit Provider Physician Assistant | DX: M79.642 Pain in left hand (principal); M24.542 Contracture, left hand | CPT/HCPCS: 73130; 99203 ==

== ENCOUNTER → 2023-09-25 09:03 | Outpatient (BNVA) | payer MEDICARE, MEDICAID, SELFPAY | PROVIDERS: Visit Provider Specialist | DX: I63.9 Cerebral infarction, unspecified (principal); G81.12 Spastic hemiplegia affecting left dominant side; G24.5 Blepharospasm | CPT/HCPCS: 99204 ==

== ENCOUNTER 2023-10-12 11:58 | Emergency (ER) | payer MEDICARE, MEDICAID, SELFPAY ==
[2023-10-12 12:01] VITALS: BP 158/81; PULSE 62; RESP 18; TEMP 36.9; O2SAT 90; BMI 54.6
--- NOTE | 2023-10-12 12:02 | CTR_ITS ---
PROCEDURE INFORMATION: Exam: CT Head Without Contrast Exam date and time: 10/12/2023 12:18 PM Age: 78 years old Clinical indication: Injury or trauma; Fall; Blunt trauma (contusions or hematomas) TECHNIQUE: Imaging protocol: Computed tomography of the head without contrast. Radiation optimization: All CT scans at this facility use at least one of these dose optimization techniques: automated exposure control; mA and/or kV adjustment per patient size (includes targeted exams where dose is matched to clinical indication); or iterative reconstruction. COMPARISON: CT head wo con* [id number] 07/18/2020 12:21 PM RADIATION DOSE METRICS: Total DLP (mGy-cm): 1126.9 FINDINGS: Brain: No intracranial hemorrhage. There is global parenchymal volume loss. Periventricular white matter hypoattenuation is nonspecific but most likely due to small vessel disease. No evidence of acute territorial infarct or cerebral edema. No mass effect or midline shift. Right frontal encephalomalacia. Cerebral ventricles: Prominent ventricles likely secondary to volume loss. Paranasal sinuses: Visualized sinuses are unremarkable. No fluid levels. Mastoid air cells: Visualized mastoid air cells are well aerated. Bones: Unremarkable. No acute fracture. Soft tissues: Unremarkable. CT/CT head wo con* [id number] IMPRESSION: No acute intracranial findings.
--- NOTE | 2023-10-12 12:10 | ED_ITS ---
HPI - Fall General: Chief Complaint: Fall Stated Complaint: headache s/p fall Time Seen by Provider: 10/12/23 12:02 History of Present Illness: 78-year-old presents to the emergency ro om patient fell at the long term yesterday while they were being moving her she has a bruise over the occiput there is no loss consciousness no vomiting no vision changes. She is awake and alert she is complaining a bit of a headache she does take Plavix. No anticoagulants Associated symptoms-after fall: Reports headache(s); Denies abdominal pain, chest pain or neck pain Review of Systems Const: Denies: fever(s) or chills Card: Denies: chest pain Resp: Denies: dyspnea GI: Denies: abdominal pain : Denies: dysuria, urinary frequency or urinary urgency Musc: Denies: neck pain or back pain Skin/Breast: Denies: rash Neuro: Reports: headache(s) PFSH ED PFSH: Medical History CAD (coronary artery disease) COPD (chronic obstructive pulmonary disease) Arthritis Atherosclerosis of [place] coronary artery of [place] heart with stable angina pectoris GERD (gastroesophageal reflux disease) MACARENA (obstructive sleep apnea) CKD (chronic kidney disease) History of NC (myocardial infarction) Carotid artery stenosis Urinary incontinence History of CVA (cerebrovascular accident) Recurrent UTI Hyperlipidemia CHF (congestive heart failure) systolic HTN (hypertension) Ischemic cardiomyopathy Surgical History S/P coronary artery stent placement S/P cholecystectomy Family History Mother , at age 70 CAD (coronary artery disease) Father , at age 59 Stroke Bleeding disorder Sister Stroke Social History Smoking and tobacco/nicotine status: never used tobacco/nicotine Alcohol intake: never Marital status: Current occupational status: retired Physical Exam Const: GENERAL APPEARANCE: cooperative and comfortable ORIENTATION/CONSCIOUSNESS: Yes awake HENMT: COMMON NORMALS: normocephalic and hearing grossly normal bilaterally HEAD & SCALP: normocephalic OTHER: Ecchymosis on the occiput at the midline no laceration no evidence of depressed skull fracture no bleeding Resp: COMMON NORMALS: normal respiratory effort, No retractions, No use of accessory muscles and clear to auscultation bilaterally AUSCULTATION: clear to auscultation bilaterally Cardio: COMMON NORMALS: regular rate and regular rhythm RATE: regular rate RHYTHM: regular rhythm HEART SOUNDS: Murmur heart sound present systolic Location: left sternal border Radiation: to the neck Intensity: / Characteristics: blowing Timing: late GI: COMMON NORMALS: Soft to palpation and No hepatosplenomegaly present AUSCULTATION: Yes normoactive bowel sounds PALPATION: Yes Soft to palpation, No Tenderness to palpation present (GI), No Guarding due to palpation present (GI) and Yes No hepatosplenomegaly present Extremity: COMMON NORMALS: normal to inspection, capillary refill normal, no clubbing, cyanosis or edema, no calf tenderness and no pedal edema Skin: COMMON NORMALS: no rashes or lesions noted GENERAL SKIN EXAM: no rashes or lesions noted Course Vital Signs: Vital signs: Vital Signs Temperature 98.4 F 10/12/23 12:01 Pulse Rate 62 10/12/23 12:01 Respiratory Rate 18 10/12/23 12:01 Blood Pressure 158/81 10/12/23 12:01 Pulse Oximetry 90 10/12/23 12:01 Oxygen Delivery Me thod Room Air 10/12/23 12:01 MDM - Fall Medical Decision Making CT of the head negative CT cervical spine shows a age-indeterminate anterior cervical compression fracture she does not really have any significant neck pain she can turn [id number] and bend with minimal pain at this point. Discussed with her and the family. Will put her in a [place] J collar and have her follow- up with Dr. Diaz for further evaluation return if she has further problems. Lab Data Radiology Impressions Head CT 10/12/23 12:02 IMPRESSION: No acute intracranial findings. Cervical Spine CT 10/12/23 12:13 IMPRESSION: Mild anterior compression fracture of C7, age indeterminate. ADDENDUM: 10/12/23 1248 THIS REPORT CONTAINS FINDINGS THAT MAY BE CRITICAL TO PATIENT CARE. The findings were verbally communicated via telephone conference with MAMADOU TIMMONS at 12:46 PM CDT on 10/12/2023. The findings were acknowledged and understood. All radiology interpretation(s) finalized by discharge Discharge Plan Discharge Patient Disposition: Home Clinical Impression: Fall, Cervical compression fracture Condition: Stable Prescriptions: No Action sennosides [Natural Senna Laxative] 8.6 mg tablet 8.6 mg PO DAILY PRN (Reason: Constipation) amlodipine 5 mg tablet 5 mg PO QAM aspirin [Adult Low Dose Aspirin] 81 mg tablet,delayed release (DR/EC) 81 mg PO DAILY nitroglycerin [Nitrostat] 0.4 mg tablet, sublingual 0.4 mg sublingual Q5M PRN (Reason: Chest Pain) Rx Instructions: do not exceed 3 doses per episode albuterol sulfate 90 mcg/actuation HFA aerosol inhaler 2 puff inhalation Q6H PRN (Reason: Wheezing) furosemide 40 mg tablet 40 mg PO DAILY potassium chloride 20 mEq tablet extended release 20 meq PO DAILY acetaminophen 325 mg Tablet 650 mg PO QID PRN (Reason: Pain) hydrocodone-acetaminophen 5-325 mg tablet 1 tab PO Q6H PRN (Reason: Pain) carvedilol 3.125 mg tablet 3.125 mg PO BID pantoprazole 20 mg tablet,delayed release (DR/EC) 20 mg PO DAILY Milk of Magnesia 400 mg/5 mL Suspension 30 ml PO DAILY PRN (Reason: Constipation) meclizine 25 mg Tablet 25 mg PO DAILY PRN (Reason: Dizziness) bisacodyl 10 mg Suppository 10 mg [place] DAILY PRN (Reason: Constipation) Fleet Enema 19-7 gram/118 mL Enema 118 ml [place] DAILY PRN (Reason: Constipation) sertraline 25 mg tablet 25 mg PO DAILY nystatin 100,000 unit/gram Powder 1 applic TOPICAL BID PRN (Reason: Rash) Miralax 17 gram/dose Powder 4 g PO DAILY PRN (Reason: Constipation) fluticasone propionate 50 mcg/actuation spray,suspension 2 spray INTRANASAL DAILY loratadine 10 mg Tablet 10 mg PO DAILY hydrochlorothiazide 12.5 mg tablet 12.5 mg PO DAILY ranolazine 1,000 mg tablet extended release 12 hr 1,000 mg PO BID Discharge Orders: Discharge ED (Routine); Ordered 10/12/23 Ordered By: Mamadou Timmons Patient Instructions: Opioid Safety, Pain Management Activity Restrictions/Additional Instructions: Thank you for choosing [facility] for your healthcare needs today. It is very important that you follow up as instructed or that you return to the Emergency Department should you have concerns or if your condition changes or worsens in any way. You are seen in the emergency room after a fall. Your head CT was negative. The CT of your neck showed a anterior seventh cervical vertebrae partial compression fracture. On the CT we it was not able to determine if it was old or new. Will place you in a cervical collar and have you follow-up with the orthopedic spine surgeon. 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
--- NOTE | 2023-10-12 12:13 | CTR_ITS ---
PROCEDURE INFORMATION: Exam: CT Cervical Spine Without Contrast Exam date and time: 10/12/2023 12:18 PM Age: 78 years old Clinical indication: Injury or trauma; Fall; Blunt trauma TECHNIQUE: Imaging protocol: Computed tomography of the cervical spine without contrast. Radiation optimization: All CT scans at this facility use at least one of these dose optimization techniques: automated exposure control; mA and/or kV adjustment per patient size (includes targeted exams where dose is matched to clinical indication); or iterative reconstruction. COMPARISON: CT head wo con* [id number] 10/12/2023 12:18 PM RADIATION DOSE METRICS: Total DLP (mGy-cm): 679.6 FINDINGS: Bones: Mild anterolisthesis C6-C7. Mild anterior compression fracture of C7, age indeterminate. Mild diffuse facet arthropathy. Mild degenerative disc disease C4-C5 and C5-C6. Lungs: Lung apices are normal. Soft tissues: Unremarkable. CT/CT cervical spin wo con* [id number] IMPRESSION: Mild anterior compression fracture of C7, age indeterminate.
--- NOTE | 2023-10-14 07:45 | DCPLANNER ---
messaged ortho for er f/u
== END 2023-10-12 15:07 | disposition home or self-care (01) ==
PROVIDERS: Emergency Provider Family Medicine
DX: S12.691A Other nondisplaced fracture of seventh cervical vertebra, initial encounter for closed fracture (principal); Z79.82 Long term (current) use of aspirin; I25.10 Atherosclerotic heart disease of native coronary artery without angina pectoris; J44.9 Chronic obstructive pulmonary disease, unspecified; I13.0 Hypertensive heart and chronic kidney disease with heart failure and stage 1 through stage 4 chronic kidney disease, or unspecified chronic kidney disease; N18.9 Chronic kidney disease, unspecified; I50.20 Unspecified systolic (congestive) heart failure; I25.2 Old myocardial infarction; Z86.73 Personal history of transient ischemic attack (TIA), and cerebral infarction without residual deficits; E78.5 Hyperlipidemia, unspecified; I25.5 Ischemic cardiomyopathy; W19.XXXA Unspecified fall, initial encounter; Y92.129 Unspecified place in nursing home as the place of occurrence of the external cause
CPT/HCPCS: 70450; 72125; 99284

== ENCOUNTER → 2023-10-24 14:54 | Outpatient (BNVA) | payer MEDICARE, MEDICAID, SELFPAY | PROVIDERS: Visit Provider Orthopaedic Surgery | DX: S12.690A Other displaced fracture of seventh cervical vertebra, initial encounter for closed fracture (principal); X58.XXXA Exposure to other specified factors, initial encounter | CPT/HCPCS: 72040; 99204 ==

== ENCOUNTER → 2023-11-19 11:48 | Outpatient (BNVA) | payer MEDICARE, MEDICAID, SELFPAY | PROVIDERS: Visit Provider Internal Medicine Cardiovascular Disease | DX: R06.02 Shortness of breath (principal) | CPT/HCPCS: 36415; 80048; 83880; 99215 ==

== ENCOUNTER 2023-11-27 10:53 | Outpatient (CLI) | payer MEDICARE, MEDICAID, SELFPAY ==
--- NOTE | 2023-11-27 11:00 | MR_ITS ---
WS: [id number] MRI LUMBAR SPINE NONCONTRAST TECHNIQUE: Sagittal T1, T2 and STIR imaging. Axial T1 and T2 imaging. CLINICAL INFORMATION: neck pain COMPARISON: None. FINDINGS: Exaggeration of the normal lumbar lordosis. Slight anterolisthesis L3 on L4 and L4 on L5.Mild acute a ppearing endplate fractures L3 and L4 with associated edema. Minimal loss of vertebral body height. N o retropulsion. L1-L2: No significant disc bulging. Moderate RIGHT and no significant LEFT foraminal narrowing. Moder ate facet arthropathy. L2-L3: Mild RIGHT and no significant LEFT foraminal narrowing. Moderate facet arthropathy with narrow ing of the RIGHT subarticular recess. L3-L4: Slight anterolisthesis. Mild disc bulging with moderate central canal stenosis. Possible evide nce of prior remote laminectomies. Advanced facet arthropathy. Foramen are patent. L4-L5: Slight anterolisthesis L4 on L5. Mild disc bulge with osteophyte ridging. Moderate to severe c entral canal stenosis. Facet arthropathy with ligamentum flavum hypertrophy. Moderate LEFT bony ena inal narrowing. RIGHT foramen is patent. L5-S1: Mild disc osteophyte complex with endplate ridging. Moderate facet arthropathy. Mild central c anal stenosis. Foramen appear patent. Visualized pelvic bony structures: Normal. Paravertebral soft tissues: Normal. Partially evaluated renal cyst. Thoracic scoliosis and kyphosis. MR/MR lumbar spine wo con* [id number] IMPRESSION: 1. Exaggeration of the normal lumbar lordosis. 2. Mild acute appearing endplate fractures L3 and L4 with associated edema. Mi nimal loss of vertebral body height. No retropulsion. 3. Moderate to severe central canal stenosis L3-L4 and L4-L5. There may be a p rior remote laminectomy at L3-4. 4. Advanced facet arthropathy L3-L4 and L4-L5. 5. Mild central canal stenosis L1-L2 L2-L3 and L5-S1. 6. Moderate LEFT L4-5 foraminal narrowing. 7. Presacral edema partially visualized. Recommend correlation with sacral marty n.
== END 2023-11-27 10:54 | disposition home or self-care (01) ==
LOC: RAD 10:53
PROVIDERS: PCP Internal Medicine; Visit Provider Orthopaedic Surgery
DX: M99.63 Osseous and subluxation stenosis of intervertebral foramina of lumbar region (principal); M47.896 Other spondylosis, lumbar region; M51.36 Other intervertebral disc degeneration, lumbar region; M25.78 Osteophyte, vertebrae; M47.898 Other spondylosis, sacral and sacrococcygeal region
CPT/HCPCS: 72148

== ENCOUNTER 2023-12-04 09:17 | Outpatient (CLI) | payer MEDICARE, MEDICAID, SELFPAY ==
--- NOTE | 2023-12-04 09:30 | MR_ITS ---
WS: [id number] MRI CERVICAL SPINE NONCONTRAST HISTORY: M54.2 - Cervicalgia COMPARISON: None available. Technique: Multiplanar, multisequence noncontrast imaging of the cervical spine. Increase in the cervical lordosis and upper thoracic kyphosis. No marrow edema or acute fracture is i dentified in the cervical spine. C6 anterolisthesis by 3 mm. 20% anterior compression fracture of C7 with no edema. No fluid in the facet joints. No fluid in the disc space. Signal within the cervical cord is normal. Visualized posterior fossa is unremarkable. Craniocervical junction, C1 and C2 relationship, odontoid process and soft tissues are normal. Latera l ventricles as visualized appear dilated which is probably related to aging and atrophy. C2-C3: Small osteophytes. No stenosis. C3-C4: Mild osteophytic ridging and disc bulging. Mild LEFT foraminal stenosis. C4-C5: Mild annular disc bulging with facet disease. No significant stenosis. C5-C6: Mild disc bulging with facet disease. Mild bilateral foraminal stenosis. C6-C7: Mild disc bulging. Foramina are poorly visualized but no obvious stenosis or disc protrusion. C7-T1: Normal. Paraspinal soft tissue are normal. MR/MR cervical spin wo con* [id number] IMPRESSION: 1. Increase in the cervical lordosis. 2. No acute marrow edema or fracture identified. 3. Facet joints appear normally aligned with no edema. No fluid in the disc sp aces. 4. Mild anterior wedging of C7, chronic compression fracture. 5. C6 anterolisthesis by 3 mm. 6. Mild foraminal stenosis as above. No significant central or foraminal steno sis.
== END 2023-12-04 09:18 | disposition home or self-care (01) ==
LOC: RAD 09:18
PROVIDERS: PCP Internal Medicine; Visit Provider Orthopaedic Surgery
DX: M43.12 Spondylolisthesis, cervical region (principal); M40.204 Unspecified kyphosis, thoracic region; S22.000A Wedge compression fracture of unspecified thoracic vertebra, initial encounter for closed fracture; X58.XXXA Exposure to other specified factors, initial encounter
CPT/HCPCS: 72141

== ENCOUNTER 2023-12-06 15:25 | Outpatient (CLI) | payer MEDICARE, MEDICAID, SELFPAY ==
--- NOTE | 2023-12-06 15:30 | USCV_ITS ---
Jovany Jacobs Age: 78 Gender: F : 1945 Exam Date: 12/06/2023 15:34 Ordering Phys: Jonathan Plunkett MD ([email or web address]) Technologist: NATALIE Exam Location: [facility] [place] Indication: Stenosis. TDS due to scanning in chair and tortuous vessels Risk Factors: Previous Vascular Surgery: Right Brachial BP: / Left Brachial BP: / Right Left Velocity (cm/s) Spectral Plaque Velocity (cm/s) Spectral Plaque Syst/Diast Broadening Syst/Diast Broadening 72.80/ 10.10 Prox CCA 43.80 / 8.50 68.60/ 13.50 Mid CCA 78.40 / 18.40 51.30/ 8.80 Distal CCA 78.40 / 13.20 54.30/ 10.20 Prox ICA 60.60 / 10.50 85.10/ 15.30 Mid ICA 69.20 / 16.50 58.90/ 12.10 Distal ICA 77.40 / 22.20 71.90 ECA 94.50 1.70 ICA/CCA 1.00 Antegrade Vertebral Antegrade 34.00/ 5.40 cm/s 38.40/ 7.60 cm/s Tri Subclavian Tri 77.70 138.6 0 FINDINGS Mild diffuse plaque at the bifurcation and the proximal internal carotid arteries bilaterally. Intimal thickening in the common carotid arteries bilaterally. CONCLUSIONS Mild diffuse plaque at the bifurcation and the proximal internal carotid arteries bilaterally with Doppler features suggesting less than 50% stenosis. Technically difficult study Dr Jonathan Plunkett MD [facility] (Electronically Signed) Final Date: 13 December 2023 16:57 S
== END 2023-12-06 15:26 | disposition home or self-care (01) ==
LOC: RAD 15:26
PROVIDERS: PCP Internal Medicine; Visit Provider Internal Medicine Cardiovascular Disease
DX: I65.23 Occlusion and stenosis of bilateral carotid arteries (principal)
CPT/HCPCS: 93880

== ENCOUNTER 2024-01-24 15:34 | Emergency (ER) | payer MEDICARE, MEDICAID, SELFPAY ==
[2024-01-24 15:38] VITALS: BP 150/69; PULSE 68; RESP 18; TEMP 37.1; O2SAT 97; BMI 42.0
--- NOTE | 2024-01-24 15:41 | XRR_ITS ---
PROCEDURE INFORMATION: Exam: XR Right Knee Exam date and time: 01/24/2024 3:53 PM Age: 78 years old Clinical indication: Injury or trauma; Other: Not specified; Blunt trauma; Knee; Right TECHNIQUE: Imaging protocol: Radiologic exam of the right knee. Views: 3 views. COMPARISON: No relevant prior studies available. FINDINGS: Bones/joints: Acute nondisplaced to minimally displaced fracture through the medial femoral condyle. Acute nondisplaced fractures of the medial tibial plateau with a tiny depressed fragment. Tricompartmental joint space narrowing and marginal osteophytes. Small joint effusion. Soft tissues: Normal. Vasculature: Scattered vascular calcifications. XR/XR knee RT 3V* [id number] IMPRESSION: 1. Acute fractures through the medial femoral condyle and medial aspect of the tibial plateau. 2. Small joint effusion.
--- NOTE | 2024-01-24 16:21 | ED_ITS ---
HPI - Extremity Problem General: Chief complaint: Extremity Injury, Lower Stated complaint: right knee pain Time Seen by Provider: 01/24/24 15:34 Source: patient and EMS Mode of arrival: EMS Limitations: no limitations History of Present Illness: 78-year-old here from care home has a history of CVA patient's bedbound and Sreedhar lift from not being able to ambulate. Patient had a fall a week ago d uring a transfer and landed on her knees she has had right knee pain since and they done an x-ray that showed a likely distal femur fracture patient's had some slight pain denies any other injuries from the fall denies hitting her head Associated symptoms: Deny chest pain, fever(s) or rash Related Data Home Medications Medication Instructions Recorded Confirmed albuterol sulfate 90 mcg/actuation 2 puff inhalation Q6H PRN Wheezing 12/26/20 10/24/23 aerosol inhaler aspirin 81 mg tablet,delayed 81 mg PO DAILY 12/26/20 10/24/23 release (Adult Low Dose Aspirin) nitroglycerin 0.4 mg sublingual 0.4 mg sublingual Q5M PRN Chest 12/26/20 10/24/23 tablet (Nitrostat) Pain amlodipine 5 mg tablet 5 mg PO QAM 07/25/21 10/24/23 sennosides 8.6 mg tablet (Natural 8.6 mg PO DAILY PRN Constipation 07/25/21 10/24/23 Senna Laxative) acetaminophen 325 mg tablet 650 mg PO QID PRN Pain 02/01/23 10/24/23 bisacodyl 10 mg rectal suppository 10 mg [place] DAILY PRN Constipation 02/01/23 10/24/23 carvedilol 3.125 mg tablet 3.125 mg PO BID 02/01/23 10/24/23 fluticasone propionate 50 2 spray intranasal DAILY 02/01/23 10/24/23 mcg/actuation nasal spray,suspension hydrochlorothiazide 12.5 mg tablet 12.5 mg PO DAILY 02/01/23 10/24/23 hydrocodone 5 mg-acetaminophen 325 1 tab PO Q6H PRN Pain 02/01/23 10/24/23 mg tablet loratadine 10 mg tablet 10 mg PO DAILY 02/01/23 10/24/23 magnesium hydroxide 400 mg/5 mL 30 ml PO DAILY PRN Constipation 02/01/23 10/24/23 oral suspension (Milk of Magnesia) meclizine 25 mg tablet 25 mg PO DAILY PRN Dizziness 02/01/23 10/24/23 nystatin 100,000 unit/gram topical 1 applic topical BID PRN Rash 02/01/23 10/24/23 powder pantoprazole 20 mg tablet,delayed 20 mg PO DAILY 02/01/23 10/24/23 release polyethylene glycol 3350 17 4 g PO DAILY PRN Constipation 02/01/23 10/24/23 gram/dose oral powder (Miralax) ranolazine 1,000 mg 1,000 mg PO BID 02/01/23 10/24/23 tablet,extended release,12 hr sertraline 25 mg tablet 25 mg PO DAILY 02/01/23 10/24/23 sodium phosphates 19 gram-7 118 ml [place] DAILY PRN Constipation 02/01/23 10/24/23 gram/118 mL enema (Fleet Enema) furosemide 40 mg tablet 40 mg PO DAILY 09/25/23 10/24/23 potassium chloride 20 mEq 20 meq PO DAILY 09/25/23 10/24/23 tablet,extended release clopidogrel 75 mg tablet 75 mg PO DAILY 11/19/23 Previous Rx's Medication Instructions Recorded cervical soft collar #1 ea 10/24/23 Allergies Allergy/AdvReac Type Severity Reaction Status Date / Time iodine Allergy Mild Hives Verified 09/25/23 09:09 lisinopril Allergy Mild Rash Verified 09/25/23 09:09 ibandronate sodium Allergy Unknown Unknown Verified 09/25/23 09:09 latex Allergy Unknown Unknown Verified 09/25/23 09:09 Review of Systems Const: Denies: fever(s), chills, body aches or change in appetite ENMT: Denies: throat pain or dental pain Card: Denies: chest pain Resp: Denies: dyspnea GI: Denies: abdominal pain, nausea, vomiting or diarrhea Musc: Reports: extremity pain; Denies: neck pain or back pain Skin/Breast: Denies: rash Neuro: Denies: headache(s) PFSH ED PFSH: Medical History CAD (coronary artery disease) COPD (chronic obstructive pulmonary disease) Arthritis Atherosclerosis of [place] coronary artery of [place] heart with stable angina pectoris GERD (gastroesophageal reflux disease) MACARENA (obstructive sleep apnea) CKD (chronic kidney disease) History of IA (myocardial infarction) Carotid artery stenosis Urinary incontinence History of CVA (cerebrovascular accident) Recurrent UTI Hyperlipidemia CHF (congestive heart failure) systolic HTN (hypertension) Ischemic cardiomyopathy Surgical History S/P coronary artery stent placement S/P cholecystectomy Family History Mother , at age 70 CAD (coronary artery disease) Father , at age 59 Stroke Bleeding disorder Sister Stroke Social History Smoking and tobacco/nicotine status: never used tobacco/nicotine Alcohol intake: never Marital status: Current occupational status: retired Physical Exam Const: COMMON NORMALS: no acute distress, patient oriented x3 and healthy appearing HENMT: COMMON NORMALS: normocephalic and atraumatic HEAD & SCALP: normocephalic and atraumatic Eye: COMMON NORMALS: Equal, round and reactive pupils present and EOMs intact bilaterally PUPIL: Yes Equal, round and reactive pupils present Neck/C-Spine: COMMON NORMALS: full ROM and supple Chest: COMMONS NORMALS: normal inspection of the chest Resp: COMMON NORMALS: normal respiratory effort Cardio: COMMON NORMALS: regular rate, regular rhythm and No murmurs present (Cardio) RATE: regular rate RHYTHM: regular rhythm Extremity: NARRATIVE EXTREMITY EXAM: Tenderness noted over right knee distal pulses intact Neuro: COMMON NORMALS: patient oriented x3, moves all extremities and no focal motor deficits Psych: COMMON NORMALS: mental status grossly normal, Normal thought process present and cooperative THOUGHT PROCESS: Normal thought process present Skin: COMMON NORMALS: no rashes or lesions noted and no wounds GENERAL SKIN EXAM: no rashes or lesions noted Course Vital Signs: Vital signs: Vital Signs Temperature 98.7 F 01/24/24 15:38 Pulse Rate 68 01/24/24 15:38 Respiratory Rate 18 01/24/24 15:38 Blood Pressure 150/69 01/24/24 15:38 Pulse Oximetry 97 01/24/24 15:38 Oxygen Delivery Me thod Room Air 01/24/24 15:38 MDM - Extremity (Nontraumatic) Medical Decision Making Patient presents here with a right distal femur fracture from a fall on spoke to patient at length she is bedbound does not ambulate she states she would not want surgery on her knee will immobilize the leg discharge back to care home she is to be nonweightbearing Medical Records I reviewed the patient's medical records. All radiology interpretation(s) finalized by discharge Discharge Plan Discharge Patient Disposition: Home Clinical Impression: Closed fracture of distal end of right femur Condition: Stable Prescriptions: No Action sennosides [Natural Senna Laxative] 8.6 mg tablet 8.6 mg PO DAILY PRN (Reason: Constipation) amlodipine 5 mg tablet 5 mg PO QAM aspirin [Adult Low Dose Aspirin] 81 mg tablet,delayed release (DR/EC) 81 mg PO DAILY nitroglycerin [Nitrostat] 0.4 mg tablet, sublingual 0.4 mg sublingual Q5M PRN (Reason: Chest Pain) Rx Instructions: do not exceed 3 doses per episode albuterol sulfate 90 mcg/actuation HFA aerosol inhaler 2 puff inhalation Q6H PRN (Reason: Wheezing) clopidogrel 75 mg tablet 75 mg PO DAILY furosemide 40 mg tablet 40 mg PO DAILY potassium chloride 20 mEq tablet extended release 20 meq PO DAILY (DME) cervical soft collar See Rx Instructions .Route .MEDSUPPLY Qty: 1 0RF Rx Instructions: As directed acetaminophen 325 mg Tablet 650 mg PO QID PRN (Reason: Pain) hydrocodone-acetaminophen 5-325 mg tablet 1 tab PO Q6H PRN (Reason: Pain) carvedilol 3.125 mg tablet 3.125 mg PO BID pantoprazole 20 mg tablet,delayed release (DR/EC) 20 mg PO DAILY Milk of Magnesia 400 mg/5 mL Suspension 30 ml PO DAILY PRN (Reason: Constipation) meclizine 25 mg Tablet 25 mg PO DAILY PRN (Reason: Dizziness) bisacodyl 10 mg Suppository 10 mg [place] DAILY PRN (Reason: Constipation) Fleet Enema 19-7 gram/118 mL Enema 118 ml [place] DAILY PRN (Reason: Constipation) sertraline 25 mg tablet 25 mg PO DAILY nystatin 100,000 unit/gram Powder 1 applic TOPICAL BID PRN (Reason: Rash) Miralax 17 gram/dose Powder 4 g PO DAILY PRN (Reason: Constipation) fluticasone propionate 50 mcg/actuation spray,suspension 2 spray INTRANASAL DAILY loratadine 10 mg Tablet 10 mg PO DAILY hydrochlorothiazide 12.5 mg tablet 12.5 mg PO DAILY ranolazine 1,000 mg tablet extended release 12 hr 1,000 mg PO BID Discharge Orders: Discharge ED (Routine); Ordered 01/24/24 Ordered By: Luana Davila Referrals: Marcos Diaz DO [Physician] - 7-10 days Duy Panchal DO [Primary Care Provider] - Discharge Diet: Advance as tolerated Patient Instructions: Leg Fracture (ED) Activity Restrictions/Additional Instructions: No weightbearing on right leg 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
[2024-01-24 18:33] VITALS: BP 144/77; PULSE 70; O2SAT 96
[2024-01-24 20:00] VITALS: BP 147/96; PULSE 74; O2SAT 94
[2024-01-24 21:55] VITALS: BP 127/65; PULSE 76; O2SAT 94
--- NOTE | 2024-01-27 09:33 | DCPLANNER ---
messagedo ortho for er f/u
== END 2024-01-24 22:02 | disposition home or self-care (01) ==
PROVIDERS: Emergency Provider Emergency Medicine; PCP Internal Medicine
DX: S72.401A Unspecified fracture of lower end of right femur, initial encounter for closed fracture (principal); Z79.82 Long term (current) use of aspirin; I13.0 Hypertensive heart and chronic kidney disease with heart failure and stage 1 through stage 4 chronic kidney disease, or unspecified chronic kidney disease; N18.9 Chronic kidney disease, unspecified; I50.20 Unspecified systolic (congestive) heart failure; I25.10 Atherosclerotic heart disease of native coronary artery without angina pectoris; J44.9 Chronic obstructive pulmonary disease, unspecified; I25.2 Old myocardial infarction
CPT/HCPCS: 73562; 99283

== ENCOUNTER → 2024-06-03 08:43 | Outpatient (BNVA) | payer MEDICARE, MEDICAID, SELFPAY | PROVIDERS: PCP Internal Medicine; Visit Provider Nurse Practitioner Family | DX: I25.5 Ischemic cardiomyopathy (principal); I35.0 Nonrheumatic aortic (valve) stenosis; I50.22 Chronic systolic (congestive) heart failure; I25.10 Atherosclerotic heart disease of native coronary artery without angina pectoris; I10 Essential (primary) hypertension; E78.49 Other hyperlipidemia | CPT/HCPCS: 83880; 99214 ==

== ENCOUNTER 2024-07-03 11:57 | Outpatient (CLI) | payer MEDICARE, MEDICAID, SELFPAY ==
--- NOTE | 2024-07-03 12:00 | USCV_ITS ---
Jovany Jacobs Age: 78 Gender: F : 1945 Exam Date: 07/03/2024 12:20 Ordering Phys: Faye Dumont NP Technologist: Ted Walker Exam Location: [facility] [place] Indication: ao stenosis BP: 117 / 78 HR: 108 Rhythm: Sinus Technical Quality: Adequate MEASUREMENTS (Male / Female) Normal Values 2D ECHO LV Diastolic Diameter PLAX 4.2 cm 4.2 - 5.9 / 3.9 - 5.3 cm IVS Diastolic Thickness 1.4 cm 0.6 - 1.0 / 0.6 - 0.9 cm IVS Systolic Thickness 1.5 cm LVPW Diastolic Thickness 2.1 cm 0.6 - 1.0 / 0.6 - 0.9 cm LVPW Systolic Thickness 2.2 cm LVOT Diameter 2.2 cm LV Ejection Fraction 2D Teich 11.9 % LV Ejection Fraction MOD 4C 28.6 % LV Ejection Fraction MOD 2C 37.7 % LV Ejection Fraction 2C AL 37.4 % RA Systolic Volume 4C AL 87.8 ml RA Systolic Volume 4C MOD 88.7 ml LA Sys Volume AL 84.1 cm cubed LA Sys Volume Index AL 34.9 cm cubed/m squared IVC Diameter 1.9 cm DOPPLER AV Peak Velocity 202.0 cm/s TV Peak Velocity 236.3 cm/s TR Peak Velocity 258.0 cm/s TR Peak Gradient 26.6 mmHg TR Mean Velocity 185.0 cm/s TR Mean Gradient 15.2 mmHg TR Velocity Time Integral 56.2 cm PV Peak Velocity 103.0 cm/s RV Ejection Time 0.2 s FINDINGS Left Ventricle Moderately increased left ventricular cavity size. Severely decreased left ventricular systolic function. Left ventricular ejection fraction is estimated at 20 %. Global left ventricular hypokinesis. Grade III/IV diastolic dysfunction (restrictive filling pattern), severely elevated filling pressures. Right Ventricle The right ventricle is normal in size and function. Right Atrium The right atrium is normal in size. Left Atrium Moderately increased left atrial size. Mitral Valve Moderately thickened mitral valve. Moderate mitral annular calcification. No mitral valve stenosis. Moderate mitral valve regurgitation. Aortic Valve Moderate aortic valve calcification. Moderate aortic valve stenosis, mean gradient 10.4 mmHg, RAINE 1.5 cm squared with element of pseudo aortic valve stenosis secondary to low cardiac output.trace aortic valve regurgitation. Tricuspid Valve Moderate tricuspid valve regurgitation. Pulmonic Valve Vhwr-kg-xwdrueih pulmonary valve regurgitation. Pericardium Normal pericardium without effusion. Aorta Normal ascending aorta dimension. IVC Dilated IVC with decreased respiratory variation. CONCLUSIONS Moderately increased left ventricular cavity size. Severely decreased left ventricular systolic function. Left ventricular ejection fraction is estimated at 20 %. Global left ventricular hypokinesis. Grade III/IV diastolic dysfunction (restrictive filling pattern), severely elevated filling pressures. Moderate aortic valve calcification. Moderate aortic valve stenosis, mean gradient 10.4 mmHg, RAINE 1.5 cm squared with element of pseudo aortic valve stenosis secondary to low cardiac output.trace aortic valve regurgitation. Moderately thickened mitral valve. Moderate mitral annular calcification. No mitral valve stenosis. Moderate mitral valve regurgitation. Moderate tricuspid valve regurgitation. Skoq-rf-rnlnokpu pulmonary valve regurgitation. There is no pericardial effusion. Right atrial pressure is around 20 mm of mercury. Nitza Madsen MD (Electronically Signed) Final Date: 05 July 2024 14:43 S
== END 2024-07-03 11:58 | disposition home or self-care (01) ==
PROVIDERS: PCP Internal Medicine; Visit Provider Nurse Practitioner Family
DX: I25.5 Ischemic cardiomyopathy (principal); I35.0 Nonrheumatic aortic (valve) stenosis; R93.1 Abnormal findings on diagnostic imaging of heart and coronary circulation; I34.81 Nonrheumatic mitral (valve) annulus calcification; I34.0 Nonrheumatic mitral (valve) insufficiency; I35.8 Other nonrheumatic aortic valve disorders; I07.1 Rheumatic tricuspid insufficiency; I37.1 Nonrheumatic pulmonary valve insufficiency
CPT/HCPCS: 93306

== ENCOUNTER 2024-07-04 18:17 | Inpatient (IN) | payer MEDICARE, MEDICAID, SELFPAY ==
[2024-07-04] VITALS (24 sets, daily range): BP systolic 93–119; BP diastolic 68–94; PULSE 105–140; RESP 19–34; TEMP 36.7–36.8; O2SAT 87–100; BMI 39.1
--- NOTE | 2024-07-04 18:21 | ECG_ITS ---
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1945 Requested By: Gerhard Noguera Order Number: [id number] Reading MD: TANIKA AIKNE Measurements Intervals [place] Rate: 113 P: 0 SC: 0 QRS: -12 QRSD: 91 T: 151 QT: 345 QTc: 475 Interpretive Statements ATRIAL FIBRILLATION WITH RAPID VENTRICULAR RESPONSE ST DEVIATION AND MODERATE T-WAVE ABNORMALITY, CONSIDER LATERAL ISCHEMIA [-0.1+ mV T-WAVE IN I/aVL/V5/V6] Compared to ECG 01/31/2023 18:02:38 Possible ischemia now present Sinus rhythm no longer present T-wave abnormality still present Electronically Signed On 07-06-2024 20:59:42 CDT by TANIKA AIKEN [email or web address]
--- NOTE | 2024-07-04 18:44 | XRR_ITS ---
PROCEDURE INFORMATION: Exam: XR Chest Exam date and time: 07/04/2024 6:48 PM Age: 78 years old Clinical indication: Cough and shortness of breath; SOB; Cough; Chest congestion TECHNIQUE: Imaging protocol: Radiologic exam of the chest. Views: 1 view. COMPARISON: CR XR chest 1V portable [id number] 02/03/2023 6:19 AM FINDINGS: Lungs: Linear atelectasis or scarring in the right lung base. No apparent consolidation. Pleural spaces: Suspected moderate volume left pleural effusion. No pneumothorax. Heart/Mediastinum: Cardiomegaly with pulmonary vascular congestion. Bones/joints: Visualized osseous structures are intact. XR/XR chest 1V portable [id number] IMPRESSION: Cardiomegaly with pulmonary vascular congestion. Suspected moderate volume left pleural effusion.
--- NOTE | 2024-07-04 18:44 | CTR_ITS ---
PROCEDURE INFORMATION: Exam: CT Head Without Contrast Exam date and time: 07/04/2024 6:56 PM Age: 78 years old Clinical indication: EMS arrival from snf for general weakness. History of CVA. ; Additional info: Weakness, AMS TECHNIQUE: Imaging protocol: Computed tomography of the head without contrast. Radiation optimization: All CT scans at this facility use at least one of these dose optimization techniques: automated exposure control; mA and/or kV adjustment per patient size (includes targeted exams where dose is matched to clinical indication); or iterative reconstruction. COMPARISON: CT head wo con* [id number] 10/12/2023 12:18 PM RADIATION DOSE METRICS: Total DLP (mGy-cm): 1354.81 FINDINGS: Brain: No hemorrhage. No edema. Advanced diffuse cerebral atrophy and sequela of chronic small vessel ischemic disease. No mass effect. Cerebral ventricles: No ventriculomegaly. Paranasal sinuses: Visualized sinuses are unremarkable. No fluid levels. Mastoid air cells: Visualized mastoid air cells are well aerated. Bones: Unremarkable. No acute fracture. Soft tissues: Unremarkable. CT/CT head wo con* [id number] IMPRESSION: No acute intracranial abnormality.
--- NOTE | 2024-07-04 18:48 | W.ED.WEAKNES ---
HPI - Weakness General: Chief complaint: Weakness Stated complaint: weakness Time Seen by Provider: 07/04/24 18:20 History of Present Illness: 78-year-old female long-term patient. She has a history of CVA, and is bedbound. She is not on oxygen at home. She has chronic left-sided spastic paralysis. She presents with generalized weakness, decreased mental status, and cough. She was noted to be in atrial fibrillation with RVR by EMS, and was given diltiazem en route. Heart rate was in the 150s, currently down to 110. Blood pressure is 108/75, but has been as low as low 90s systolic. Her oxygen was low as well. The patient herself reports trouble breathing. She reports a cough. No fever. No sputum production. Bilateral leg swelling. She evidently had surgery for a distal femur and tibial plateau fracture on the right side despite being bedbound last year in [place]. [facility] ED PFSH: Medical History CAD (coronary artery disease) COPD (chronic obstructive pulmonary disease) Arthritis Atherosclerosis of hoopa coronary artery of hoopa heart with stable angina pectoris GERD (gastroesophageal reflux disease) MACARENA (obstructive sleep apnea) CKD (chronic kidney disease) History of [place] (myocardial infarction) Carotid artery stenosis Urinary incontinence History of CVA (cerebrovascular accident) Recurrent UTI Hyperlipidemia CHF (congestive heart failure) systolic HTN (hypertension) Ischemic cardiomyopathy Surgical History S/P coronary artery stent placement S/P cholecystectomy Family History Mother , at age 70 CAD (coronary artery disease) Father , at age 59 Stroke Bleeding disorder Sister Stroke Social History Smoking and tobacco/nicotine status: never used tobacco/nicotine Alcohol intake: never Marital status: Current occupational status: retired Physical Exam Const: GENERAL APPEARANCE: cooperative, ill appearing and frail appearing ORIENTATION/CONSCIOUSNESS: Yes awake, Yes oriented to person and Yes oriented to place HENMT: COMMON NORMALS: normocephalic and Normal external nose present HEAD & SCALP: normocephalic FACE & SINUS: no erythema and no edema NOSE: Normal external nose present Eye: COMMON NORMALS: Equal, round and reactive pupils present and EOMs intact bilaterally PUPIL: Yes Equal, round and reactive pupils present Chest: CHEST: Yes Symmetrical chest wall rise Resp: EFFORT & INSPECTION: Yes symmetric chest movement, Yes tachypneic and Yes labored AUSCULTATION: rales Cardio: RATE: tachycardic RHYTHM: abnormal rhythm irregularly irregular GI: COMMON NORMALS: Soft to palpation PALPATION: Yes Soft to palpation Extremity: NARRATIVE EXTREMITY EXAM: Symmetrical 3+ edema pitting Neuro: SENSORIUM/ORIENTATION: Yes oriented to person and Yes oriented to place Course Vital Signs: Vital signs: Vital Signs Temperature 98.5 F 07/05/24 03:21 Pulse Rate 124 H 07/05/24 03:21 Respiratory Rate 22 H 07/05/24 03:21 Blood Pressure 104/71 07/05/24 03:21 Pulse Oximetry 100 07/05/24 03:21 Oxygen Delivery Me thod BiPAP 07/05/24 03:21 Oxygen Flow Rate 2 07/04/24 18:49 Fraction of Inspir ed Oxygen 30 07/05/24 03:21 MDM - Weakness Medical Decision Making 78-year-old female with some lethargy and mental status change. She is in atrial fibrillation with rapid ventricular rate. Rate has been 7166-2132. Blood pressure mildly soft, so she was not started on a diltiazem drip. Respirations are labored. This is despite somewhat good oxygenation. She is placed on BiPAP given x-ray findings of significant pulmonary vascular congestion/edema and left pleural effusion. Hemoglobin is 10. Potassium is 3.2. Creatinine is 1.3. Head CT is negative for acute change. Swabs are negative for flu COVID and RSV. She will be admitted for pulmonary edema with hypoxic respiratory failure as well as atrial fibrillation with RVR. Hospitalist is seeing the patient. Lab Data 07/05/24 00:41 07/05/24 00:41 Radiology Impressions Chest X-Ray 07/04/24 18:44 IMPRESSION: Cardiomegaly with pulmonary vascular congestion. Suspected moderate volume left pleural effusion. Head CT 07/04/24 18:44 IMPRESSION: No acute intracranial abnormality. Laboratory Results WBC Cancelled 07/04/24 18:45 Corrected WBC Cancelled 07/04/24 18:45 RBC Cancelled 07/04/24 18:45 Hgb Cancelled 07/04/24 18:45 Hct Cancelled 07/04/24 18:45 MCV Cancelled 07/04/24 18:45 MCH Cancelled 07/04/24 18:45 MCHC Cancelled 07/04/24 18:45 RDW Cancelled 07/04/24 18:45 Plt Count Cancelled 07/04/24 18:45 MPV Cancelled 07/04/24 18:45 Gran % Cancelled 07/04/24 18:45 Neut % (Auto) Cancelled 07/04/24 18:45 Lymph % (Auto) Cancelled 07/04/24 18:45 Tift % (Auto) Cancelled 07/04/24 18:45 Eos % (Auto) Cancelled 07/04/24 18:45 Baso % (Auto) Cancelled 07/04/24 18:45 Neut # (Auto) Cancelled 07/04/24 18:45 Lymph # (Auto) Cancelled 07/04/24 18:45 Tift # (Auto) Cancelled 07/04/24 18:45 Eos # (Auto) Cancelled 07/04/24 18:45 Baso # (Auto) Cancelled 07/04/24 18:45 Absolute Gran (auto) Cancelled 07/04/24 18:45 Nucleated RBC % (auto) Cancelled 07/04/24 18:45 Nucleated RBCs # Cancelled 07/04/24 18:45 Specimen Type Arterial 07/04/24 19:27 Sample Site Radial, right 07/04/24 19:27 ABG pH 7.43 (7.35-7.45) 07/04/24 19:27 ABG pCO2 45.4 mmHg (35-45) H 07/04/24 19:27 ABG pO2 106.0 mmHg (80.0-100.0) H 07/04/24 19:27 ABG HCO3 30.1 mmol/L (22-26) H 07/04/24 19:27 ABG Base Excess 5.1 mmol/L (-2.0-2.0) H 07/04/24 19:27 Shawn Test Pos 07/04/24 19:27 Hematocrit 33.1 % (37-47) L 07/04/24 19:27 O2 Delivery Device Nc 07/04/24 19:27 O2 Liters/Min 2.0 % 07/04/24 19:27 Tandem [employer] ID [email or web address] 07/04/24 19:27 Sodium 146 mmol/L (136-145) H 07/04/24 18:45 Potassium 3.6 mmol/L (3.5-5.1) 07/04/24 18:45 Chloride 106 mmol/L (98-107) 07/04/24 18:45 Carbon Dioxide 26 mmol/L (22-29) 07/04/24 18:45 Anion Gap 17.6 (5-19) 07/04/24 18:45 BUN 34 mg/dL (8-23) H 07/04/24 18:45 Creatinine 1.4 mg/dL (0.5-0.9) H 07/04/24 18:45 GFR Calculation Not Reportable 07/04/24 18:45 Glucose 113 mg/dL (65-115) 07/04/24 18:45 Calculated Osmolality 310 mOsm/kg (285-295) H 07/04/24 18:45 Lactic Acid 1.5 mmol/L (0.5-2.2) 07/04/24 18:45 Calcium 8.5 mg/dL (8.5-10.5) 07/04/24 18:45 Total Bilirubin 0.6 mg/dL (0.15-1.2) 07/04/24 18:45 AST 24 U/L (0-32) 07/04/24 18:45 ALT 17 U/L (0-33) 07/04/24 18:45 Alkaline Phosphatase 94 U/L (35-105) 07/04/24 18:45 Troponin T Baseline 373 ng/L (0-10) H* 07/04/24 18:45 C-Reactive Protein 67.9 mg/L (0.0-4.9) H 07/04/24 18:45 NT-Pro-B Natriuret Pep 00945 pg/mL (0-450) H 07/04/24 18:45 Total Protein 6.5 g/dL (6.6-8.7) L 07/04/24 18:45 Albumin 3.1 g/dL (3.5-5.2) L 07/04/24 18:45 Globulin 3.4 g/dL (1.3-4.6) 07/04/24 18:45 Lipase 15 U/L (13-60) 07/04/24 18:45 Procalcitonin 0.27 ng/mL (0-0.5) 07/04/24 18:45 TSH 0.70 uIU/mL (0.27-4.20) 07/04/24 18:45 Urine Color Yellow (Yellow) 07/04/24 19:56 Urine Appearance Turbid (CLEAR) A 07/04/24 19:56 Urine pH 5.0 (5-7) 07/04/24 19:56 Ur Specific [place] 1.014 (1.005-1.030) 07/04/24 19:56 Urine Protein Trace (Negative) A 07/04/24 19:56 Urine Glucose (UA) Negative (Normal) 07/04/24 19:56 Urine Ketones Negative (Negative) 07/04/24 19:56 Urine Blood Non-haemolysed trace (Negative) 07/04/24 19:56 Urine Nitrate Negative (Negative) 07/04/24 19:56 Urine Bilirubin Negative (Negative) 07/04/24 19:56 Urine Urobilinogen 1.0 mg/dL (Negative) 07/04/24 19:56 Ur Leukocyte Esterase 2+ (Negative) A 07/04/24 19:56 Urine RBC 3-5 /hpf (0-2) 07/04/24 19:56 Urine WBC 51-100 /hpf (0-5) H 07/04/24 19:56 Ur Squamous Epith Cells 21-50 /hpf (0-5) H 07/04/24 19:56 Amorphous Sediment Not Reportable 07/04/24 19:56 Urine Bacteria 4+ /hpf (NONE) H 07/04/24 19:56 Hyaline Casts 113.76 /lpf 07/04/24 19:56 Influenza A (PCR) Negative (Negative) 07/04/24 18:55 Influenza Type B (PCR) Negative (Negative) 07/04/24 18:55 RSV (PCR) Negative (Negative) 07/04/24 18:55 SARS-CoV-2 (PCR) Negative (Negative) 07/04/24 18:55 All radiology interpretation(s) finalized by discharge Discharge Plan Discharge Patient Disposition: Admitted As Inpatient Admit Provider: Chuckie Kwok Clinical Impression: CHF (congestive heart failure), Atrial fibrillation with RVR, Aortic valve stenosis, Hypoxia Condition: Serious Coding Level of Care Code ED Manager Wound for Chg Fwd Related Data Home Medications ?Medication ?Instructions ?Recorded ?Confirmed albuterol sulfate 90 mcg/actuation 2 puff inhalation Q6H PRN Wheezing 12/26/20 06/03/24 aerosol inhaler aspirin 81 mg tablet,delayed 81 mg PO DAILY 12/26/20 06/03/24 release (Adult Low Dose Aspirin) nitroglycerin 0.4 mg sublingual 0.4 mg sublingual Q5M PRN Chest 12/26/20 06/03/24 tablet (Nitrostat) Pain sennosides 8.6 mg tablet (Natural 8.6 mg PO DAILY PRN Constipation 07/25/21 06/03/24 Senna Laxative) acetaminophen 325 mg tablet 650 mg PO QID PRN Pain 02/01/23 06/03/24 bisacodyl 10 mg rectal suppository 10 mg [place] DAILY PRN Constipation 02/01/23 06/03/24 fluticasone propionate 50 2 spray intranasal DAILY 02/01/23 06/03/24 mcg/actuation nasal spray,suspension hydrochlorothiazide 12.5 mg tablet 12.5 mg PO DAILY 02/01/23 06/03/24 hydrocodone 5 mg-acetaminophen 325 1 tab PO Q6H PRN Pain 02/01/23 06/03/24 mg tablet loratadine 10 mg tablet 10 mg PO DAILY 02/01/23 06/03/24 magnesium hydroxide 400 mg/5 mL 30 ml PO DAILY PRN Constipation 02/01/23 06/03/24 oral suspension (Milk of Magnesia) meclizine 25 mg tablet 25 mg PO DAILY PRN Dizziness 02/01/23 06/03/24 nystatin 100,000 unit/gram topical 1 applic topical BID PRN Rash 02/01/23 06/03/24 powder pantoprazole 20 mg tablet,delayed 20 mg PO DAILY 02/01/23 06/03/24 release polyethylene glycol 3350 17 4 g PO DAILY PRN Constipation 02/01/23 06/03/24 gram/dose oral powder (Miralax) ranolazine 1,000 mg 1,000 mg PO BID 02/01/23 06/03/24 tablet,extended release,12 hr sodium phosphates 19 gram-7 118 ml [place] DAILY PRN Constipation 02/01/23 06/03/24 gram/118 mL enema (Fleet Enema) potassium chloride 20 mEq 20 meq PO DAILY 09/25/23 06/03/24 tablet,extended release clopidogrel 75 mg tablet 75 mg PO DAILY 11/19/23 06/03/24 furosemide 80 mg tablet mg PO 06/03/24 06/03/24 guaifenesin 100 mg/5 mL oral liquid 200 mg PO Q4H PRN 06/03/24 06/03/24 sertraline 50 mg tablet mg PO 06/03/24 06/03/24 Previous Rx's ?Medication ?Instructions ?Recorded cervical soft collar #1 ea 10/24/23 Allergies Allergy/AdvReac Type Severity Reaction Status Date / Time iodine Allergy Mild Hives Verified 06/03/24 08:55 lisinopril Allergy Mild Rash Verified 06/03/24 08:55 ibandronate sodium Allergy Unknown Unknown Verified 06/03/24 08:55 latex Allergy Unknown Unknown Verified 06/03/24 08:55
[2024-07-04 19:12] LABS: Lactic Sepsis W/Reflex 1.5 mmol/L (0.5-2.2)
[2024-07-04 19:21] LABS: Alanine Aminotransferase 17 U/L (0-33); Albumin Level 3.1 g/dL (3.5-5.2); Alkaline Phosphatase 94 U/L (35-105); Aspartate Amino Transferase 24 U/L (0-32); Blood Urea Nitrogen 34 mg/dL (8-23); C Reactive Protein 67.9 mg/L (0.0-4.9); Calcium 8.5 mg/dL (8.5-10.5); Carbon Dioxide 26 mmol/L (22-29); Chloride 106 mmol/L (98-107); Globulin 3.4 g/dL (1.3-4.6); Glucose 113 mg/dL (65-115); Lipase 15 U/L (13-60); Osmolality Calculated 310 mOsm/kg (285-295); Sodium 146 mmol/L (136-145); Total Bilirubin 0.6 mg/dL (0.15-1.2); Total Protein 6.5 g/dL (6.6-8.7); Troponin(5th) Baseline 373 ng/L (0-10)
[2024-07-04 19:30] LABS: Anion Gap 17.6 (5-19); Potassium 3.6 mmol/L (3.5-5.1)
[2024-07-04 19:37] LABS: ABG PCO2 45.4 mmHg (35-45); ABG PH Result 7.43 (7.35-7.45); Arterial Blood Gas Hematocrit 33.1 % (37-47); Base Excess ABG 5.1 mmol/L (-2.0-2.0); Blood Gas Allen Test Pos; Blood Gas Sample Site Radial, right; Blood Gas Sample Type Arterial; HCO3 ABG 30.1 mmol/L (22-26); Oxygen Device NC
[2024-07-04 19:44] LABS: NT Pro B Type Natriuretic Pept 53782 pg/mL (0-450)
[2024-07-04 19:48] LABS: Influenza A NEGATIVE (Negative); Influenza B NEGATIVE (Negative); Respiratory Syncytial Virus Ce NEGATIVE (Negative); SARS-CoV-2 PCR NEGATIVE (Negative)
[2024-07-04 20:08] LABS: Bilirubin Urine Negative (Negative); Blood Urine Non-haemolysed trace (Negative); Glucose Urine UA Negative (Normal); Ketones Urine Negative (Negative); Leukocyte Esterase Urine 2+ (Negative); Nitrate Urine Negative (Negative); Protein Urine Trace (Negative); Specific Gravity, Urine 1.014 (1.005-1.030); Urine Appearance Turbid (CLEAR); Urine Color Yellow (Yellow)
[2024-07-04] MEDS: FUROsemide 10 mg/mL SDV 10mL 60 MG IVP (20:08)
[2024-07-04 20:13] LABS: Add Urine Microscopic? YES; Bacteria Urine 4+ /hpf; Hyaline Casts Urine 113.76 /lpf; Squamous Epithelial Cell Urine 21-50 /hpf (0-5); WBC Urine 51-100 /hpf (0-5)
[2024-07-04 20:31] LABS: UA Slide Review UA Slide Review Perf
[2024-07-04 20:32] LABS: Add Urine Culture? No
--- NOTE | 2024-07-04 20:39 | PM.HP ---
Providers/Chief Complaint Primary Care Provider: Duy Panchal DO Chief Complaint: weakness History of Present Illness Jovany Jacobs is a 78 year old female with a past medical history significant for stroke with residual left hemiparesis, heart failure, aortic valve stenosis, coronary artery disease, COPD, obstructive sleep apnea on CPAP, chronic kidney disease, recurrent urinary tract infections, and multiple other comorbidities who presents from nursing facility with reported altered mental status and lethargy x1 day. Patient seen and evaluated in ED 12. She is on BiPAP and unable provide much history. Daughter and granddaughter bedside. Collateral information also collected from ED provider. Family alka patient was in her usual state of health until likely today as she had been to doctors appointments earlier this week and doing fine at that time. Collateral information reveals patient had decreased mental status, generalized weakness, and cough. She was found to be in atrial fibrillation with a rapid ventricular rate per EMS report treated with Cardizem with improvement in rate. Patient endorses shortness of breath, cough, and lower extremity edema. In the emergency department, patient was found to be tachypneic, hypoxic, and tachycardic. EKG showed A-fib with RVR. She was treated with IV diuresis and initiation of BiPAP. Chest x-ray showed cardiomegaly with pulmonary vascular congestion and suspected moderate volume left-sided pleural effusion. Review of Systems Narrative: A complete review of systems was obtained and is negative except as stated in HPI. Medications/Allergies Home Medications ?Medication ?Instructions ?Recorded ?Confirmed ?Last Taken ?Type albuterol sulfate 90 mcg/actuation 2 puff inhalation Q6H PRN Wheezing 12/26/20 06/03/24 Unknown History aerosol inhaler aspirin 81 mg tablet,delayed 81 mg PO DAILY 12/26/20 06/03/24 01/30/23 History release (Adult Low Dose Aspirin) nitroglycerin 0.4 mg sublingual 0.4 mg sublingual Q5M PRN Chest 12/26/20 06/03/24 Unknown History tablet (Nitrostat) Pain sennosides 8.6 mg tablet (Natural 8.6 mg PO DAILY PRN Constipation 07/25/21 06/03/24 01/30/23 History Senna Laxative) acetaminophen 325 mg tablet 650 mg PO QID PRN Pain 02/01/23 06/03/24 01/29/23 History bisacodyl 10 mg rectal suppository 10 mg VT DAILY PRN Constipation 02/01/23 06/03/24 01/21/23 History fluticasone propionate 50 2 spray intranasal DAILY 02/01/23 06/03/24 01/30/23 History mcg/actuation nasal spray,suspension hydrochlorothiazide 12.5 mg tablet 12.5 mg PO DAILY 02/01/23 06/03/24 01/30/23 History hydrocodone 5 mg-acetaminophen 325 1 tab PO Q6H PRN Pain 02/01/23 06/03/24 01/30/23 History mg tablet loratadine 10 mg tablet 10 mg PO DAILY 02/01/23 06/03/24 01/30/23 History magnesium hydroxide 400 mg/5 mL 30 ml PO DAILY PRN Constipation 02/01/23 06/03/24 Unknown History oral suspension (Milk of Magnesia) meclizine 25 mg tablet 25 mg PO DAILY PRN Dizziness 02/01/23 06/03/24 01/30/23 History nystatin 100,000 unit/gram topical 1 applic topical BID PRN Rash 02/01/23 06/03/24 Unknown History powder pantoprazole 20 mg tablet,delayed 20 mg PO DAILY 02/01/23 06/03/24 01/31/23 History release polyethylene glycol 3350 17 4 g PO DAILY PRN Constipation 02/01/23 06/03/24 01/21/23 History gram/dose oral powder (Miralax) ranolazine 1,000 mg 1,000 mg PO BID 02/01/23 06/03/24 01/30/23 History tablet,extended release,12 hr sodium phosphates 19 gram-7 118 ml VT DAILY PRN Constipation 02/01/23 06/03/24 Unknown History gram/118 mL enema (Fleet Enema) potassium chloride 20 mEq 20 meq PO DAILY 09/25/23 06/03/24 Unknown History tablet,extended release cervical soft collar #1 ea 10/24/23 06/03/24 Unknown Rx clopidogrel 75 mg tablet 75 mg PO DAILY 11/19/23 06/03/24 Unknown History furosemide 80 mg tablet mg PO 06/03/24 06/03/24 Unknown History guaifenesin 100 mg/5 mL oral liquid 200 mg PO Q4H PRN 06/03/24 06/03/24 Unknown History sertraline 50 mg tablet mg PO 06/03/24 06/03/24 Unknown History Allergies Allergy/AdvReac Type Severity Reaction Status Date / Time iodine Allergy Mild Hives Verified 06/03/24 08:55 lisinopril Allergy Mild Rash Verified 06/03/24 08:55 ibandronate sodium Allergy Unknown Unknown Verified 06/03/24 08:55 latex Allergy Unknown Unknown Verified 06/03/24 08:55 PFSH Acute PFSH: Medical History CAD (coronary artery disease) COPD (chronic obstructive pulmonary disease) Arthritis Atherosclerosis of [place] coronary artery of [place] heart with stable angina pectoris GERD (gastroesophageal reflux disease) MACARENA (obstructive sleep apnea) CKD (chronic kidney disease) History of IA (myocardial infarction) Carotid artery stenosis Urinary incontinence History of CVA (cerebrovascular accident) Recurrent UTI Hyperlipidemia CHF (congestive heart failure) systolic HTN (hypertension) Ischemic cardiomyopathy Surgical History S/P coronary artery stent placement S/P cholecystectomy Family History Mother , at age 70 CAD (coronary artery disease) Father , at age 59 Stroke Bleeding disorder Sister Stroke Social History Smoking and tobacco/nicotine status: never used tobacco/nicotine Alcohol intake: never Marital status: Current occupational status: retired Vitals/I&O/Wt Last Vital Signs Temp 98.0 F 07/04/24 18:19 Pulse 110 H 07/04/24 20:00 Resp 23 H 07/04/24 20:00 BP 112/89 07/04/24 20:00 Pulse Ox 99 07/04/24 20:00 O2 Del Method Nasal Cannula 07/04/24 18:49 O2 Flow Rate 2 07/04/24 18:49 FiO2 39 07/04/24 19:50 Physical Exam Narrative: General: Patient is lethargic but arouses to stimulation. On BiPAP. Head: Normocephalic. Atraumatic. EOM intact. Neck: Elevated JVD. Cardiovascular: Irregularly irregular rhythm. Mildly tachycardic. No gallops. Systolic murmur present. 2+ pitting edema in bilateral lower extremities. Lungs: Tachypneic. Increased work of breathing. Breath sounds diminished on left. Crackles present. No wheezing. On BiPAP. Skin: No jaundice. No rashes. Abdomen: Normal bowel sounds, abdomen soft and nontender. Genito Urinary: Genital exam not performed since complaints not related. Rectal: Rectal exam not performed since no symptoms indicated blood loss. Extremities: No cyanosis or clubbing. Musculoskeletal: No swollen or erythematous joints. Neurological: Moves all 4 extremities. No myoclonus. Urinary Catheter Management: Begum: Cath Placed During This Visit: yes Urinary Catheter Date of Insertion: 07/04/24 Urinary Catheter Time of Insertion: 20:02 Data 07/04/24 20:42 07/04/24 18:45 A&P Assessment and plan (1) UTI (urinary tract infection): (2) Ischemic cardiomyopathy: (3) HTN (hypertension): Qualifiers: Hypertension type: primary hypertension Qualified Code(s): I10 - Essential (primary) hypertension (4) Aortic valve stenosis: Qualifiers: Cardiac valve disease etiology: nonrheumatic Qualified Code(s): I35.0 - Nonrheumatic aortic (valve) stenosis (5) CHF (congestive heart failure): Qualifiers: Heart failure type: systolic Heart failure chronicity: chronic Qualified Code(s): I50.22 - Chronic systolic (congestive) heart failure (6) CAD (coronary artery disease): (7) Atherosclerosis of coronary artery of [place] heart without angina pectoris: Qualifiers: Coronary Disease-Associated Artery/Lesion type: [place] artery Qualified Code(s): I25.10 - Atherosclerotic heart disease of [place] coronary artery without angina pectoris (8) CVA, old, hemiparesis: (9) Hypoxia: (10) Pleural effusion: (11) Atrial fibrillation with RVR: (12) Normocytic anemia: (13) Dysphagia: (14) Hypernatremia: (15) Renal insufficiency syndrome: (16) Elevated troponin: Plan Acute on chronic heart failure with reduced ejection fraction - TTE (01/31/23) w/ LVEF 30 to 35%, grade 2 diastolic dysfunction - Outpatient echo was recently ordered, may have been performed per family just pending read; would recommend following up during regular hours seeing status; and if not been performed, then consider repeating echocardiogram for updated cardiac function eval - Continuous telemetry monitoring - Strict I's and O's, daily weights - Start IV diuresis with IV Lasix 60 mg BIDAC; adjust as needed Paroxysmal atrial fibrillation with RVR - Status post Cardizem en route - Continuous telemetry monitoring - Check TSH; monitor electrolytes - Blood pressure soft, may need amiodarone pending clinical course Acute hypoxic respiratory insufficiency - Patient's baseline is room air - Starting BiPAP for increased work of breathing and CHF - Provide supplemental oxygen support - Encourage pulmonary toilet Left-sided pleural effusion -Consider thoracentesis if no improvement by Saturday Acute complicated urinary tract infection History of recurrent UTIs - Reflex urinalysis to culture - No recent culture to guide treatment - Start ceftriaxone Acute metabolic encephalopathy - Head CT negative for acute findings - Treat underlying CHF and respiratory status - Avoid sedating medications Renal insufficiency - BUN 34, creatinine 1.4; previously normal in November 2023, no labs in the interim - Starting diuresis - Monitor urinary output - Trend labs Elevated troponin - Suspect secondary to A-fib with RVR and CHF - No acute ischemic changes on EKG - Continuous telemetry monitoring History of coronary artery disease - Continue DAPT - Continue Ranexa Hypertension - Hold HCTZ due to soft bp and need for IV diuresis History of stroke with left hemiparesis History of dysphagia - Reportedly bedbound 2/2 CVA - Family reports patient is on a modified diet at nursing facility but still struggles - Will need to clarify current diet with facility - Consider speech therapy consult if needed pending clinical course GERD - Formulary PPI DVT ppx: Lovenox PDMP PDMP Reviewed: Not Reviewed Attestations Medical Necessity Statement*: Patient presents with altered mentation, hypoxia and respiratory distress, found to have congestive heart failure and arrhythmia with suspected hospitalization not to cross 2 midnights for diuresis and supportive care. Coding Level of Care Code Acute Code for g Fwd Diagnoses UTI (urinary tract infection) N39.0 Ischemic cardiomyopathy I25.5 Primary hypertension I10 Hypertension type: primary hypertension Nonrheumatic aortic valve stenosis I35.0 Cardiac valve disease etiology: nonrheumatic Chronic systolic congestive heart failure I50.22 Heart failure type: systolic Heart failure chronicity: chronic CAD (coronary artery disease) I25.10 Atherosclerosis of [place] coronary artery of [place] heart without angina pectoris I25.10 Coronary Disease-Associated Artery/Lesion type: [place] artery CVA, old, hemiparesis I69.359 Hypoxia R09.02 Pleural effusion J90 Atrial fibrillation with RVR I48.91 Normocytic anemia D64.9 Dysphagia R13.10 Hypernatremia E87.0 Renal insufficiency syndrome N28.9 Elevated troponin R79.89
--- NOTE | 2024-07-04 20:46 | ECG_ITS ---
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
[2024-07-04 20:47] LABS: Basophils % 0.3 %; Eosinophils % 0.4 %; Hematocrit 35.5 % (36-47); Lymphocytes # 0.8 10^3/uL (0.8-4.8); Lymphocytes % 11.5 %; Mean Corpuscular HGB Conc 28.7 g/dL (30-55); Mean Corpuscular Hemoglobin 25.4 pg (27-33); Mean Corpuscular Volume 88.3 fl (85-98); Mean Platelet Volume 9.9 fL (7.4-10.4); Monocytes # 0.9 10^3/uL (0.2-0.9); Monocytes % 12.1 %; Neutrophils # 5.37 10^3/uL (1.8-7.7); Neutrophils % 74.7 %; Nucleated Red Blood Cells # 0.1 /100WBC; Nucleated Red Blood Cells % 0.8 %; Platelet Count 194 10^3/cmm (157-399); Red Blood Count 4.02 10^6/uL (3.85-5.65); Red Cell Distribution Width 20.2 % (12.1-15.1); White Blood Count 7.19 10^3/uL (3.29-11.43)
[2024-07-04 21:08] LABS: Troponin 5 2HR 384.6 ng/L (0-10); Troponin 5 2HR Delta 11.6 ABS# (0-10)
[2024-07-04 22:49] LABS: Procalcitonin 0.27 ng/mL (0-0.5)
[2024-07-04] MEDS: cefTRIAXone 1,000 mg SDV 1000 MG IVP (22:52)
[2024-07-04] MEDS: enoxaparin 100 mg/mL Syringe 90 MG SUBCUT (22:52)
[2024-07-05] VITALS (17 sets, daily range): BP systolic 92–226; BP diastolic 68–132; PULSE 92–156; RESP 20–44; TEMP 36.8–38.1; O2SAT 90–100; BMI 39.0
--- NOTE | 2024-07-05 00:46 | ECG_ITS ---
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1945 Requested By: Gerhard Noguera Order Number: [id number] Reading MD: TANIKA AIKEN Measurements Intervals [place] Rate: 133 P: 0 ME: 0 QRS: 13 QRSD: 94 T: 105 QT: 309 QTc: 460 Interpretive Statements ATRIAL FIBRILLATION WITH RAPID VENTRICULAR RESPONSE WITH ABERRANT CONDUCTION OR VENTRICULAR PREMATURE COMPLEXES POSSIBLE RIGHT VENTRICULAR CONDUCTION DELAY [RSR (QR) IN V1/V2] NONSPECIFIC T-WAVE ABNORMALITY Compared to ECG 07/04/2024 20:16:57 Ventricular premature complex(es) now present Aberrant conduction of supraventricular beat(s) now present Possible ischemia no longer present T-wave abnormality still present Electronically Signed On 07-06-2024 21:01:07 CDT by TANIKA AIKEN [id number]
[2024-07-05 00:55] LABS: Basophils % 0.3 %; Eosinophils % 0.3 %; Hematocrit 34.2 % (36-47); Lymphocytes # 0.7 10^3/uL (0.8-4.8); Lymphocytes % 10.7 %; Mean Corpuscular HGB Conc 28.7 g/dL (30-55); Mean Corpuscular Hemoglobin 25.2 pg (27-33); Mean Corpuscular Volume 87.9 fl (85-98); Mean Platelet Volume 9.6 fL (7.4-10.4); Monocytes # 0.7 10^3/uL (0.2-0.9); Monocytes % 10.2 %; Neutrophils # 5.32 10^3/uL (1.8-7.7); Neutrophils % 77.8 %; Nucleated Red Blood Cells # 0.1 /100WBC; Platelet Count 185 10^3/cmm (157-399); Red Blood Count 3.89 10^6/uL (3.85-5.65); Red Cell Distribution Width 20.1 % (12.1-15.1); White Blood Count 6.84 10^3/uL (3.29-11.43)
--- NOTE | 2024-07-05 00:58 | PC.NURSE ---
PT HAD A 13 BEAT RUN OF VTACH. THIS RN WENT TO ASSESS THE PT WHEN TELEMETRY STARTED ALARMING. PT WAS RESTING COMFORTABLY IN BED WITH NO S/S. THIS RN NOTIFIED MD BUS DRIVER SUPERVISOR OF EVENT. STRIP IS PRINTED AND PLACED IN THE CHART. WILL CONTINUE TO MONITOR UNTIL THE END OF THIS RNS SHIFT.
[2024-07-05 01:10] LABS: Troponin 5 6HR Delta 7.1 ng/L (0-12)
[2024-07-05 01:12] LABS: Anion Gap 15.2 (5-19); Blood Urea Nitrogen 33 mg/dL (8-23); Calcium 8.4 mg/dL (8.5-10.5); Carbon Dioxide 29 mmol/L (22-29); Chloride 106 mmol/L (98-107); Creatinine Clr Calc Pharmacy 34.6767; Glucose 122 mg/dL (65-115); Magnesium 2.4 mg/dL (1.7-2.3); Osmolality Calculated 313 mOsm/kg (285-295); Potassium 3.2 mmol/L (3.5-5.1); Sodium 147 mmol/L (136-145)
[2024-07-05 01:18] LABS: Troponin 5 6HR 380.1 ng/L (0-10)
[2024-07-05] MEDS: potassium chloride premix 100 ML 50 MEQ IV (01:18)
[2024-07-05] MEDS: metoprolol tartrate 1 mg/1 mL SDV 5 mL 2.5 MG IVP (04:59)
[2024-07-05] MEDS: FUROsemide 10 mg/mL SDV 10mL 60 MG IVP ×4 (06:17→20:10)
[2024-07-05] MEDS: metoprolol tartrate 50 mg Tablet PO (06:17)
[2024-07-05] MEDS: potassium chloride oral liq 20 mEq/15 mL UDC 40 MEQ PO (06:25)
[2024-07-05] MEDS: amiodarone 150 MG/100 ML PREMIX 400 MG IV (07:09)
--- NOTE | 2024-07-05 07:37 | PC.NURSE ---
Patient sustaining afib with rvr 140-150 bpm. Blood pressure could not be obtained. Dr. Kwok notified. Physician gave order to give 150mg amio bolus and transfer to [facility]. Report was called to KELI You. All questions answered at the time of report. Patient was transported by this nurse and KELI Le. Patients daughter, Shira, was contacted by this nurse and informed of patient change in condition and transfer. All questions were answered at the time of call.
[2024-07-05] MEDS: ipratropium-albuterol 3 mL Neb INHALATION (08:52)
--- NOTE | 2024-07-05 11:21 | PC.SLP ---
Pt on BiPap at this time.
--- NOTE | 2024-07-05 11:28 | PM.CONSULT ---
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 Patient was started on IV Lasix given labetalol and started on amiodarone drip. Currently heart rate is within normal limit blood pressure currently stable and in normotensive range. Patient is receiving 60 mg IV twice daily Lasix have not urinated much. We have been asked to assist in her care. Review of Systems Narrative: A complete review of systems was obtained and is negative except as stated in HPI. Medications/Allergies Home Medications ?Medication ?Instructions ?Recorded ?Confirmed ?Last Taken ?Type albuterol sulfate 90 mcg/actuation 2 puff inhalation Q6H PRN Wheezing 12/26/20 07/05/24 Unknown History aerosol inhaler aspirin 81 mg tablet,delayed 81 mg PO DAILY 12/26/20 07/05/24 07/04/24 07:25 History release (Adult Low Dose Aspirin) nitroglycerin 0.4 mg sublingual 0.4 mg sublingual Q5M PRN Chest 12/26/20 07/05/24 Unknown History tablet (Nitrostat) Pain sennosides 8.6 mg tablet (Natural 8.6 mg PO DAILY PRN Constipation 07/25/21 07/05/24 01/30/23 History Senna Laxative) acetaminophen 325 mg tablet 650 mg PO QID PRN Pain 02/01/23 07/05/24 06/29/24 17:45 History bisacodyl 10 mg rectal suppository 10 mg IA DAILY PRN Constipation 02/01/23 07/05/2406/04/25 06:05 History fluticasone propionate 50 2 spray intranasal DAILY 02/01/23 07/05/24 07/04/24 07:25 History mcg/actuation nasal spray,suspension hydrochlorothiazide 12.5 mg tablet 12.5 mg PO DAILY 02/01/23 07/05/24 07/04/24 10:30 History hydrocodone 5 mg-acetaminophen 325 1 tab PO Q6H PRN Pain 02/01/23 07/05/24 07/03/24 16:55 History mg tablet loratadine 10 mg tablet 10 mg PO DAILY 02/01/23 07/05/24 07/04/24 07:25 History magnesium hydroxide 400 mg/5 mL 30 ml PO DAILY PRN Constipation 02/01/23 07/05/24 06/03/24 17:45 History oral suspension (Milk of Magnesia) meclizine 25 mg tablet 25 mg PO DAILY PRN Dizziness 02/01/23 07/05/24 07/04/24 07:25 History nystatin 100,000 unit/gram topical 1 applic topical BID PRN Rash 02/01/23 07/05/24 05/28/24 20:25 History powder pantoprazole 20 mg tablet,delayed 20 mg PO DAILY 02/01/23 07/05/24 07/04/24 07:25 History release polyethylene glycol 3350 17 17 g PO DAILY PRN Constipation 02/01/23 07/05/24 06/03/24 10:55 History gram/dose oral powder (Miralax) sodium phosphates 19 gram-7 118 ml IA DAILY PRN Constipation 02/01/23 07/05/24 Unknown History gram/118 mL enema (Fleet Enema) potassium chloride 20 mEq 20 meq PO DAILY 09/25/23 07/05/24 07/04/24 07:25 History tablet,extended release cervical soft collar #1 ea 10/24/23 07/05/24 Unknown Rx clopidogrel 75 mg tablet 75 mg PO DAILY 11/19/23 07/05/24 07/04/24 07:25 History furosemide 80 mg tablet 810 mg PO BID 06/03/24 07/05/24 07/04/24 13:00 History guaifenesin 100 mg/5 mL oral liquid 200 mg PO Q4H PRN Cough 06/03/24 07/05/2425 17:15 History albuterol sulfate 2.5 mg/3 mL 2.5 mg inhalation Q4H PRN 07/05/24 07/05/24 05/01/24 13:15 History (0.083 %) solution for nebulization Shortness Of Breath Or Wheezing ascorbic acid 1,000 1 ea PO DAILY 07/05/24 07/05/24 07/04/24 07:25 History ao-[id number] powder effervescent pack (Emergen-C) magnesium citrate 296 ml PO DAILY PRN Constipation 07/05/24 07/05/24 Unknown History sertraline 100 mg tablet (Zoloft) 100 mg PO DAILY 07/05/24 07/05/24 07/03/24 18:50 History Allergies Allergy/AdvReac Type Severity Reaction Status Date / Time iodine Allergy Mild Hives Verified 06/03/24 08:55 lisinopril Allergy Mild Rash Verified 06/03/24 08:55 ibandronate sodium Allergy Unknown Unknown Verified 06/03/24 08:55 latex Allergy Unknown Unknown Verified 06/03/24 08:55 Current Medications Generic Name Dose Route Start Last Admin Trade Name Freq PRN Reason Stop Dose Admin Albuterol/Ipratropium 3 ml 07/05/24 00:32 07/05/24 08:52 Ipratropium-Albuterol 3 Ml Neb INHALATION 3 ml Q4H PRN Administration SHORTNESS OF BREATH Aspirin 81 mg 07/05/24 09:00 07/05/24 09:52 Aspirin 81 Mg Ec Tablet PO Not Given DAILY GHADA Ceftriaxone Sodium 1,000 mg 07/04/24 22:10 07/04/24 22:52 Ceftriaxone 1,000 Mg Sdv IVP 1,000 mg Q24H GHADA Administration Protocol Enoxaparin Sodium 90 mg 07/04/24 22:45 07/04/24 22:52 Enoxaparin 100 Mg/Ml Syringe SUBCUT 90 mg Q12H GHADA Administration Furosemide 60 mg 07/05/24 07:00 07/05/24 06:17 Furosemide 10 Mg/Ml Sdv 10ml IVP 60 mg BIDAC GHADA Administration Potassium Chloride 100 mls @ 50 mls/hr 07/05/24 01:00 07/05/24 03:21 K-Melquiades Premix IV Infused ONCE GHADA Infusion Amiodarone HCl/Dextrose 360 mg in 200 mls @ 0 mls/hr 07/05/24 06:49 07/05/24 07:53 Nexterone IV 1 mg/min .Q0M GHADA 33.33 mls/hr Administration Protocol Per Protocol Metoprolol Tartrate 50 mg 07/05/24 06:05 07/05/24 06:17 Metoprolol Tartrate 50 Mg Tablet PO 50 mg BID@0900,2100 GHADA Administration Pantoprazole Sodium 40 mg 07/05/24 09:00 07/05/24 09:[address] 40 Mg Tablet PO Not Given DAILY GHADA Ranolazine 1,000 mg 07/05/24 09:00 07/05/24 09:52 Ranolazine (12hr) 500 Mg Tablet PO Not Given BID GHADA Senna 8.6 mg 07/05/24 09:00 07/05/24 09:53 Sennosides 8.6 Mg Tablet PO Not Given DAILY GHADA PFSH Acute PFSH: Medical History CAD (coronary artery disease) COPD (chronic obstructive pulmonary disease) Arthritis Atherosclerosis of [place] coronary artery of [place] heart with stable angina pectoris GERD (gastroesophageal reflux disease) MACARENA (obstructive sleep apnea) CKD (chronic kidney disease) History of MT (myocardial infarction) Carotid artery stenosis Urinary incontinence History of CVA (cerebrovascular accident) Recurrent UTI Hyperlipidemia CHF (congestive heart failure) systolic HTN (hypertension) Ischemic cardiomyopathy Surgical History S/P coronary artery stent placement S/P cholecystectomy Family History Mother , at age 70 CAD (coronary artery disease) Father , at age 59 Stroke Bleeding disorder Sister Stroke Social History Smoking and tobacco/nicotine status: never used tobacco/nicotine Alcohol intake: never Marital status: Current occupational status: retired Dietary Habits: Current diet type/program: regular and low salt Vitals/I&O/Wt Last Vital Signs Temp 99.2 F 07/05/24 07:40 Pulse 101 H 07/05/24 10:51 Resp 38 H 07/05/24 08:53 BP 226/132 07/05/24 07:40 Pulse Ox 92 07/05/24 10:51 O2 Del Method Nasal Cannula 07/05/24 08:53 O2 Flow Rate 3 07/05/24 08:53 FiO2 30 07/05/24 10:51 07/04/24 07/05/24 07/05/24 22:59 06:59 14:59 Intake Total 100 / 100 100 / 100 Balance 100 / 100 100 / 100 Weight last 48 hrs Weight 200 lb Weight 200 lb 4.8 oz Physical Exam Const: OTHER: GENERAL: Patient is arousable but disoriented fatigue not able to swallow due to disorientation HEART: Irregular S1 and S2. 2/6 systolic murmur LUNGS: Decreased breath sound bilaterally. CENTRAL NERVOUS SYSTEM: Disoriented EXTREMITIES: Lower extremities with trace to 1+ edema Urinary Catheter Management: Begum: Cath Placed During This Visit: yes Reason for Continuing Indwelling Catheter: Other Urinary Catheter Date of Insertion: 07/04/24 Urinary Catheter Time of Insertion: 20:02 Data 07/05/24 00:41 07/05/24 00:41 A&P Assessment and plan (1) CHF (congestive heart failure): Qualifiers: Heart failure type: systolic Heart failure chronicity: chronic Qualified Code(s): I50.22 - Chronic systolic (congestive) heart failure (2) Ischemic cardiomyopathy: (3) Aortic valve stenosis: Qualifiers: Cardiac valve disease etiology: nonrheumatic Qualified Code(s): I35.0 - Nonrheumatic aortic (valve) stenosis (4) Atrial fibrillation with RVR: Plan Patient appeared to be in decompensated systolic heart failure with severe LV dysfunction estimated ejection fraction around 20% with dilated cardiomyopathy and moderate to severe mitral valve regurgitation. Elevated cardiac markers suggestive of non-ST elevation MT is secondary to underlying coronary artery disease however in the absence of EKG changes obvious chest pain it could be from already underlying obstructive disease with chronically occluded RCA, in general patient is not a great candidate for invasive strategy at the moment, once out of heart failure may will reassess her candidacy for any intervention if appropriate. At the moment our goal is to diurese her control atrial fibrillation and monitor her renal function. Will increase IV Lasix to 60 3 times daily since patient cannot take metolazone by mouth We recommend using hydralazine 10 mg IV Q4 as needed for systolic blood pressure more than 160 avoid [id number] for antihypertensive use as it may have further negative inotropic effect If hypertensive urgency patient may can be started on nitro drip which will also benefit her from being on vasodilation and heart failure. Goal is 1 to 1.5 L negative Continue anticoagulation in the form of enoxaparin Continue IV amiodarone since heart rate is under control for atrial fibrillation Further plan will be devised as per progress the patient PDMP PDMP Reviewed: Not Reviewed Consult Attestations Medical Necessity Statement: Patient require continuation hospitalization for above defined care. Coding Level of Care Code Acute Code for Chg Fwd Diagnoses Chronic systolic congestive heart failure I50.22 Heart failure type: systolic Heart failure chronicity: chronic Ischemic cardiomyopathy I25.5 Nonrheumatic aortic valve stenosis I35.0 Cardiac valve disease etiology: nonrheumatic Atrial fibrillation with RVR I48.91
[2024-07-05] MEDS: labetalol 5 mg/mL SDV 20mL 20 MG IVP (11:41)
--- NOTE | 2024-07-05 11:49 | PC.SLP ---
Pt weak. Requested to wait until tomorrow. Pt has been on and off of BiPap.
--- NOTE | 2024-07-05 12:33 | P.PN_ITS ---
Subjective 2 Subjective: She is a new admit overnight for acute hypoxic respiratory failure, acute on chronic congestive heart failure, A-fib with RVR, started on amiodarone drip, acute metabolic encephalopathy, ANY, UTI, pleural effusions, elevated troponins. Seen her at bedside this morning. Was found to have blood pressure of 216/126. Was diaphoretic and tachypneic. Saturating well. Started on BiPAP. Given IV labetalol 20 mg x 1 stat. Blood pressure improved to 136/106. Her heart rate has been in the range of 100-1 tens. Amiodarone drip tapered to 0.5. Denies any complaint of chest pain or shortness of breath. She is alert awake and oriented x 3. Medications: Reviewed: Yes Vitals/I&O/Wt Last Vital Signs Temp 100.5 F H 07/05/24 11:53 Pulse 100 07/05/24 11:53 Resp 44 H 07/05/24 11:53 BP 135/111 07/05/24 11:53 Pulse Ox 93 07/05/24 11:53 O2 Del Method Nasal Cannula 07/05/24 11:53 O2 Flow Rate 3 07/05/24 11:53 FiO2 30 07/05/24 10:51 07/04/24 07/05/24 07/05/24 22:59 06:59 14:59 Intake Total 100 / 100 100 / 100 Output Total 450 / 450 Balance 100 / 100 -350 / -350 Weight last 48 hrs Weight 90.718 kg Weight 90.855 kg Physical Exam 2 Narrative: General: Patient is lethargic but arouses to stimulation. On BiPAP. Head: Normocephalic. Atraumatic. EOM intact. Neck: Elevated JVD. Cardiovascular: Irregularly irregular rhythm. Mildly tachycardic. No gallops. Systolic murmur present. 2+ pitting edema in bilateral upper and lower extremities. Lungs: Tachypneic. Increased work of breathing. Breath sounds diminished on left. Crackles present. No wheezing. On BiPAP and nasal canula intermittently.. Abdomen: Normal bowel sounds, abdomen soft and nontender. Neurological: Moves all 4 extremities. left sided residual hemiparesis with stiffness. No myoclonus. Urinary Catheter Management: Begum: Cath Placed During This Visit: yes Reason for Continuing Indwelling Catheter: Other Urinary Catheter Date of Insertion: 07/04/24 Urinary Catheter Time of Insertion: 20:02 Data 07/05/24 00:41 07/05/24 00:41 A&P Assessment and plan (1) UTI (urinary tract infection): (2) Ischemic cardiomyopathy: (3) HTN (hypertension): Qualifiers: Hypertension type: primary hypertension Qualified Code(s): I10 - Essential (primary) hypertension (4) Aortic valve stenosis: Qualifiers: Cardiac valve disease etiology: nonrheumatic Qualified Code(s): I35.0 - Nonrheumatic aortic (valve) stenosis (5) CHF (congestive heart failure): Qualifiers: Heart failure type: systolic Heart failure chronicity: chronic Q ualified Code(s): I50.22 - Chronic systolic (congestive) heart failure (6) CAD (coronary artery disease): (7) Atherosclerosis of coronary artery of [place] heart without angina pectoris: Qualifiers: Coronary Disease-Associated Artery/Lesion type: [place] artery Qualified Code(s): I25.10 - Atherosclerotic heart disease of [place] coronary artery without angina pectoris (8) CVA, old, hemiparesis: (9) Hypoxia: (10) Pleural effusion: (11) Atrial fibrillation with RVR: (12) Normocytic anemia: (13) Dysphagia: (14) Hypernatremia: (15) Renal insufficiency syndrome: (16) Elevated troponin: Plan 78 year old female with a past medical history significant for stroke with residual left hemiparesis, heart failure, aortic valve stenosis, coronary artery disease, COPD, obstructive sleep apnea on CPAP, chronic kidney disease, recurrent urinary tract infections, and multiple other comorbidities who presents from nursing facility with reported altered mental status and lethargy x1 day. Acute on chronic heart failure with reduced ejection fraction - TTE (01/31/23) w/ LVEF 30 to 35%, grade 2 diastolic dysfunction - Outpatient echo was recently ordered, may have been performed per family just pending read; would recommend following up during regular hours seeing status; and if not been performed, then consider repeating echocardiogram for updated cardiac function eval - Continuous telemetry monitoring - Strict I's and O's, daily weights - Start IV diuresis with IV Lasix 60 mg BIDAC; adjust as needed Paroxysmal atrial fibrillation with RVR - Status post Cardizem en route - Continuous telemetry monitoring - Check TSH; monitor electrolytes - Blood pressure soft, may need amiodarone pending clinical course Acute hypoxic respiratory insufficiency - Patient's baseline is room air - Starting BiPAP for increased work of breathing and CHF - Provide supplemental oxygen support - Encourage pulmonary toilet Left-sided pleural effusion -Consider thoracentesis if no improvement by Saturday Acute complicated urinary tract infection History of recurrent UTIs - Reflex urinalysis to culture - No recent culture to guide treatment - Start ceftriaxone Acute metabolic encephalopathy - Head CT negative for acute findings - Treat underlying CHF and respiratory status - Avoid sedating medications Renal insufficiency - BUN 34, creatinine 1.4; previously normal in November 2023, no labs in the interim - Starting diuresis - Monitor urinary output - Trend labs Elevated troponin - Suspect secondary to A-fib with RVR and CHF - No acute ischemic changes on EKG - Continuous telemetry monitoring History of coronary artery disease - Continue DAPT - Continue Ranexa Hypertension - Hold HCTZ due to soft bp and need for IV diuresis History of stroke with left hemiparesis History of dysphagia - Reportedly bedbound 2/2 CVA - Family reports patient is on a modified diet at nursing facility but still struggles - Will need to clarify current diet with facility - Consider speech therapy consult if needed pending clinical course GERD - Formulary PPI DVT ppx: Lovenox 07/05/24 Acute hypoxic respiratory failure-likely secondary to combination of acute on chronic congestive heart failure, paroxysmal atrial fibrillation, pleural effusion and hypertensive urgency Continue BiPAP and nasal cannula intermittently ABG acceptable Respiratory panel negative Acute on chronic congestive heart failure-received IV Lasix 60 mg this morning Blood pressure soft. Will monitor I's and O's. Paroxysmal atrial fibrillation with RVR- On amiodarone drip. Heart rate ranging from 100-110. Amiodarone drip tapered to 0.5 Elevated troponins 373, 384, 380--likely secondary to A-fib with RVR No acute ischemic changes on EKG Cardiology Dr. Madsen consulted, follow for further recommendations TSH 0.7. Had echo done as an outpatient. Will follow-up for reading. Hypertension-was found to be hypertensive urgency this morning with blood pressure of 216/126 Received IV labetalol 20 mg x 1 Will continue cardiac telemetry monitoring. UTI-continue ceftriaxone Follow-up urine culture Acute metabolic encephalopathy-resolved Acute renal failure-likely prerenal Creatinine improved from 1.4-1.3 Will monitor for now History of stroke with left hemiparesis History of dysphagia Follow-up speech and swallow consult PDMP PDMP Reviewed: Not Reviewed Attestations 2 Medical Necessity Statement*: Patient presents with altered mentation, hypoxia and respiratory distress, found to have congestive heart failure and arrhythmia with suspected hospitalization not to cross 2 midnights for diuresis and supportive care. Time Spent in Patient Care: 90minutes Coding Level of Care Code Acute Code for [facility] Fwd Diagnoses UTI (urinary tract infection) N39.0 Ischemic cardiomyopathy I25.5 Primary hypertension I10 Hypertension type: primary hypertension Nonrheumatic aortic valve stenosis I35.0 Cardiac valve disease etiology: nonrheumatic Chronic systolic congestive heart failure I50.22 Heart failure type: systolic Heart failure chronicity: chronic CAD (coronary artery disease) I25.10 Atherosclerosis of [place] coronary artery of [place] heart without angina pectoris I25.10 Coronary Disease-Associated Artery/Lesion type: [place] artery CVA, old, hemiparesis I69.359 Hypoxia R09.02 Pleural effusion J90 Atrial fibrillation with RVR I48.91 Normocytic anemia D64.9 Dysphagia R13.10 Hypernatremia E87.0 Renal insufficiency syndrome N28.9 Elevated troponin R79.89 Time Spent (min) 90
[2024-07-05] MEDS: enoxaparin 100 mg/mL Syringe 90 MG SUBCUT ×2 (12:53→22:08)
[2024-07-05] MEDS: acetaminophen 650 mg Supp PR (16:57)
--- NOTE | 2024-07-05 16:58 | PC.NURSE ---
tylenol suppository given for temp of 100.4
[2024-07-05] MEDS: piperacillin-tazobactam 3.375 GM in sodium chloride 0.9% (plus) 50 ML IV (18:01)
[2024-07-06] VITALS (13 sets, daily range): BP systolic 93–110; BP diastolic 72–83; PULSE 84–95; RESP 17–26; TEMP 36.1–37.2; O2SAT 94–100
[2024-07-06] MEDS: piperacillin-tazobactam 3.375 GM in sodium chloride 0.9% (plus) 50 ML IV ×3 (02:23→17:44)
[2024-07-06 03:42] LABS: Basophils % 0.1 %; Hematocrit 35.1 % (36-47); Lymphocytes # 0.8 10^3/uL (0.8-4.8); Lymphocytes % 11.2 %; Mean Corpuscular HGB Conc 28.2 g/dL (30-55); Mean Corpuscular Hemoglobin 25.3 pg (27-33); Mean Corpuscular Volume 89.5 fl (85-98); Mean Platelet Volume 10.5 fL (7.4-10.4); Monocytes # 0.8 10^3/uL (0.2-0.9); Monocytes % 11.8 %; Neutrophils # 5.07 10^3/uL (1.8-7.7); Neutrophils % 75.9 %; Nucleated Red Blood Cells # 0.1 /100WBC; Nucleated Red Blood Cells % 0.7 %; Platelet Count 186 10^3/cmm (157-399); Red Blood Count 3.92 10^6/uL (3.85-5.65); Red Cell Distribution Width 20.5 % (12.1-15.1); White Blood Count 6.69 10^3/uL (3.29-11.43)
[2024-07-06 04:13] LABS: Anion Gap 17.5 (5-19); Blood Urea Nitrogen 46 mg/dL (8-23); Calcium 8.4 mg/dL (8.5-10.5); Carbon Dioxide 29 mmol/L (22-29); Chloride 110 mmol/L (98-107); Creatinine Clr Calc Pharmacy 22.5205; Glucose 100 mg/dL (65-115); Osmolality Calculated 326 mOsm/kg (285-295); Potassium 4.5 mmol/L (3.5-5.1); Sodium 152 mmol/L (136-145)
[2024-07-06 04:35] LABS: NT Pro B Type Natriuretic Pept 61854 pg/mL (0-450)
--- NOTE | 2024-07-06 09:34 | PC.CHAP ---
Pastoral Care Encounter/Spiritual Assessment Type of Contact [] Declined port warden visit [] Patient/Family/Request visit [] Outpatient visit [] Follow-up visit [] Physician referral [] Code/Alert [x] Routine visit [] Staff referral [] Actively dying [x] Patient sleeping [] Family support [] [] Out of room [] Palliative care [] [] Receiving care in room [] Pre-surgical visit [] Trauma [] Long length of stay [] ICU visit [] Other: Relational/Emotional Strength [] Patient feels connected with others/family/visitors/staff [] Distress [] Loneliness/isolation [] Abandonment Spirituality of Patient [] Person of Valeria [] Attends Jainism of their Valeria [] Believes in Prayer [] Reads Bible or Restorationism materials [] There are Spiritual issues to be addressed Paper Hanger Interventions [x] Prayer [] Active listening [] Non-anxious presence [] Spiritual/emotional support [] Crisis/trauma care [] Spiritual counseling [] Bereavement support [] Provided bereavement packet [] Provided Bible/devotional materials [] Provided toy/stuffed animal, coloring book to patient or family member [] Provided Communion [] Anointing/[place] [] Salvation [] Completed spiritual assessment [] Other: Impact on Illness or Injury [] Angry [] Fearful [] Anxious [] Often cries [] Exhaustion [] Unable to work [] Unable to attend congregation [] Unable to walk/stand [] Unable to read [] Unable to drive [] Unable to eat/drink [] Unable to sleep [] Unable to be with family [] Patient intubated [] Other: Summary Time spent with patient
--- NOTE | 2024-07-06 09:54 | USCV_ITS ---
Jovany Jacobs Age: 78 Gender: F : 1945 Exam Date: 07/06/2024 11:02 Ordering Phys: Daniel Noland MD Technologist: NATALIE Exam Location: [facility] [place] Indication: R/O DVT HISTORY: r/o dvt PROCEDURES: Venous duplex imaging was performed in bilateral lower extremities. The following venous structures were evaluated: common femoral vein, profunda vein, proximal portion of the greater saphenous vein, superficial femoral vein, and the popliteal vein. In addition, the posterior tibial and peroneal trunk were evaluated. Serial compression, augmentation maneuvers, and spectral Doppler flow evaluation were performed. FINDINGS: Limited 2-D Doppler and augmentation and compressibility throughout the lower extremity venous structures. Additional imaging through the proximal calf veins also reveals no thrombus. Limited evaluation of the greater saphenous vein is patent with no thrombus. CONCLUSIONS Technically limited exam. No DVT seen but not all veins are well seen. Dr. Minerva Matos DO (Electronically Signed) Final Date: 06 July 2024 13:17 S
[2024-07-06] MEDS: dextrose 5%-sod chloride 0.9% 1,000 ML 50 ML IV (10:10)
[2024-07-06 10:36] LABS: Iron 12 ug/dL (37-145); Percent Saturation 5.6 % (20-50); Total Iron Binding Capacity 213 mcg/dl; Unsaturated Iron Binding 201 ug/dL (112-347)
[2024-07-06 10:37] LABS: Estmated Average Glucose 105; Hemoglobin A1C 5.3 % (4.0-6.0)
[2024-07-06] MEDS: ipratropium 0.5 mg/2.5 mL Neb INHALATION ×3 (10:47→20:14)
[2024-07-06] MEDS: levalbuterol 0.63 mg/3 mL Neb INHALATION ×3 (10:47→20:14)
[2024-07-06 10:48] LABS: Vitamin B12 642 pg/mL (232-1245)
[2024-07-06 11:42] LABS: Bacillus cereus group Not Detected (NOT DETECT); Bacillus subtillis group Not Detected (NOT DETECT); Corynebacterium Not Detected (NOT DETECT); Cutibacterium acnes (P.acnes) Not Detected (NOT DETECT); Enterococcus Not Detected (NOT DETECT); Enterococcus faecalis Not Detected (NOT DETECT); Enterococcus faecium Not Detected (NOT DETECT); Lactobacillus species Not Detected (NOT DETECT); Listeria Not Detected (NOT DETECT); Listeria monocytogenes Not Detected (NOT DETECT); Micrococcus Not Detected (NOT DETECT); Pan Candida Not Detected (NOT DETECT); Pan Gram-Negative Not Detected (NOT DETECT); Staphylococcus epidermidis Not Detected (NOT DETECT); Staphylococcus lugdunensis Not Detected (NOT DETECT); Staphylococcus species Detected (NOT DETECT); Streptococcus agalactiae Not Detected (NOT DETECT); Streptococcus anginosus group Not Detected (NOT DETECT); Streptococcus pneumoniae Not Detected (NOT DETECT); Streptococcus pyogenes Not Detected (NOT DETECT); Streptococcus species Not Detected (NOT DETECT); mecA Detected (NOT DETECT); mecC Not Detected (NOT DETECT)
[2024-07-06 12:00] LABS: D Dimer 1.19 ug/mLFEU (0-0.59)
[2024-07-06 12:00] LABS: MRSA PCR OZH (swab) MRSA Detected (Not Detecte)
--- NOTE | 2024-07-06 14:08 | P.PN_ITS ---
Subjective 2 Subjective: Hospital course, labs appreciated. Today morning patient seen sitting comfortably up in bed. She is on 3 L of oxygen supplementation. Patient is awake and alert. Denies any nausea, vomiting, headache. States she is still finding slightly difficult to breathe. Medications: Reviewed: Yes Vitals/I&O/Wt Last Vital Signs Temp 98.9 F 07/06/24 12:00 Pulse 94 07/06/24 13:38 Resp 22 H 07/06/24 13:38 BP 105/83 07/06/24 12:00 Pulse Ox 97 07/06/24 13:38 O2 Del Method Nasal Cannula 07/06/24 13:38 O2 Flow Rate 2 07/06/24 13:38 FiO2 30 07/06/24 04:15 07/05/24 07/06/24 07/06/24 22:59 06:59 14:59 Intake Total 224.757 / 324.757 106.558 / 106.558 Output Total 100 / 550 250 / 800 Balance 124.757 / -225.243 -250 / -475.243 106.558 / 106.558 Weight last 48 hrs Weight 96.343 kg Weight 96.343 kg Weight 90.718 kg Weight 90.855 kg Physical Exam 2 Narrative: General: Patient is lethargic but arouses to stimulation. On BiPAP. Head: Normocephalic. Atraumatic. EOM intact. Neck: Elevated JVD. Cardiovascular: Irregularly irregular rhythm. No gallops. Systolic murmur present. 2+ pitting edema in bilateral upper and lower extremities. Lungs: Tachypneic. Increased work of breathing. Breath sounds diminished on left. Crackles present. No wheezing. On BiPAP and nasal canula intermittently.. Abdomen: Normal bowel sounds, abdomen soft and nontender. Neurological: Moves all 4 extremities. left sided residual hemiparesis with stiffness. No myoclonus. Urinary Catheter Management: Begum: Cath Placed During This Visit: yes Reason for Continuing Indwelling Catheter: Accurate Measurement of Urinary Output in Critically Ill Patients Urinary Catheter Date of Insertion: 07/04/24 Urinary Catheter Time of Insertion: 20:02 Data 07/06/24 03:24 07/06/24 03:24 Micro: Microbiology 07/05/24 17:03 Urine Culture - Preliminary Urine Catheterized 07/05/24 17:17 Blood Culture - Preliminary Blood Staphylococcus species 07/05/24 17:15 Blood Culture - Preliminary Blood SPECIMEN COLLECTED A&P Assessment and plan (1) Dysphagia: (2) Acute hypoxemic respiratory failure: (3) Hypernatremia: (4) Atrial fibrillation with RVR: (5) ANY (acute kidney injury): (6) NSTEMI (non-ST elevated myocardial infarction): (7) UTI (urinary tract infection): (8) CVA, old, hemiparesis: (9) Ischemic cardiomyopathy: (10) HTN (hypertension): Qualifiers: Hypertension type: primary hypertension Qualified Code(s): I10 - Essential (primary) hypertension (11) Aortic valve stenosis: Qualifiers: Cardiac valve disease etiology: nonrheumatic Qualified Code(s): I35.0 - Nonrheumatic aortic (valve) stenosis (12) CHF (congestive heart failure): Qualifiers: Heart failure chronicity: chronic Heart failure type: systolic Q ualified Code(s): I50.22 - Chronic systolic (congestive) heart failure (13) CAD (coronary artery disease): (14) Pleural effusion: (15) Normocytic anemia: Plan 78 year old female with a past medical history significant for stroke with residual left hemiparesis, heart failure, aortic valve stenosis, coronary artery disease, COPD, obstructive sleep apnea on CPAP, chronic kidney disease, recurrent urinary tract infections, and multiple other comorbidities who presents from nursing facility with reported altered mental status and lethargy x1 day. Acute on chronic heart failure with reduced ejection fraction Echocardiogram done earlier this admission shows EF of 20% with grade 3 diastolic dysfunction, moderate aortic valve stenosis, moderate MR, moderate TR with mild to moderate pulmonary valve regurgitation. Currently patient seems to be getting compensated. Continue with fluid restriction to less than 1500 cc. Hold off any further diuresis for now. Strict input output charting, daily weights. Paroxysmal atrial fibrillation with RVR Heart rate better controlled. Continue with amiodarone drip at 0.5 for now. Restart oral metoprolol 50 mg twice daily once patient is able to take orally. Pressure TSH Continue with full dose Lovenox 1 mg/kg body weight daily as per creatinine clearance for now. Acute hypoxic respiratory insufficiency Combination of congestive heart failure along with aspiration pneumonia. Oxygen supplementation keeping saturation over 90%. CPAP/BiPAP nightly or as needed. Pulmicort twice daily, ipratropium, Xopenex every 6 hours. Aggressive pulmonary toilet as possible. If needed will start on chest vest. Left-sided pleural effusion Oxygen levels are stable for now. Hold off on thoracentesis for now. Acute metabolic encephalopathy Head CT negative for acute findings Most likely a combination of acute illness along with hypernatremia, ANY. Speech evaluation and start diet accordingly. Acute kidney injury: Baseline creatinine from November seems to be 0.8-1. Worsening due to today. Oliguria overnight. Hold off on diuresis for now. Medical reconciliation done for nephrotoxic drugs. Monitor BMP in afternoon. Hypernatremia: Sodium worsening to 142. Could be in setting of dehydration. Hold off on Lasix. Start on D5 NS at 50 cc/h. Repeating BMP as above. Elevated troponin/non-ST elevation DC: Type II DC possibly secondary to A-fib with RVR and CHF. Nonlesional motion abnormality. Continue with full dose Lovenox as per creatinine clearance as above for now. Patient not able to take DAPT as n.p.o. given metabolic encephalopathy. Start on rectal aspirin. History of coronary artery disease Restart home medications once patient is able to take oral medications. Hypertension Goal blood pressure less than 140/90 MAG with mean over 65. Hold off on oral antihypertensive for now. Restart accordingly. Acute metabolic encephalopathy could be in setting of infectious process: Pneumonia/complicated urinary tract infection Continue with Zosyn for now. Follow-up blood culture and urine culture. Check MRSA swab. If MRSA swab is positive will start on linezolid. History of stroke with left hemiparesis Dysphagia - Reportedly bedbound 2/2 CVA - Family reports patient is on a modified diet at nursing facility but still struggles Speech therapy evaluation will start on diet accordingly. Full dose Lovenox with sufficient for DVT prophylaxis Protonix for PUD prophylaxis DNR/DNI. PDMP PDMP Reviewed: Not Reviewed Attestations 2 Medical Necessity Statement*: Requires further hospitalization for management of dysphagia while diet is started accordingly, metabolic encephalopathy in setting of hypernatremia, UTI, aspiration pneumonia, ANY in a patient with baseline chronic systolic and diastolic heart failure. Diagnoses Dysphagia R13.10 Acute hypoxemic respiratory failure J96.01 Hypernatremia E87.0 Atrial fibrillation with RVR I48.91 ANY (acute kidney injury) N17.9 NSTEMI (non-ST elevated myocardial infarction) I21.4 UTI (urinary tract infection) N39.0 CVA, old, hemiparesis I69.359 Ischemic cardiomyopathy I25.5 Primary hypertension I10 Hypertension type: primary hypertension Nonrheumatic aortic valve stenosis I35.0 Cardiac valve disease etiology: nonrheumatic Chronic systolic congestive heart failure I50.22 Heart failure chronicity: chronic Heart failure type: systolic CAD (coronary artery disease) I25.10 Pleural effusion J90 Normocytic anemia D64.9
[2024-07-06] MEDS: linezolid premix 600 MG/300 ML PREMIX 300 MG IV (14:40)
--- NOTE | 2024-07-06 14:40 | P.PN_ITS ---
<Statement entered by Nitza Madsen MD - 07/06/24 20:41> Patient was evaluated and cared for in conjunction with an advanced practice practitioner. I personally examined the patient and reviewed the chart and all pertinent data including imaging, telemetry, and laboratory results. I discussed the patient in detail with the advanced practice practitioner. Please see their note for complete H&P testing result and agreed upon plan of care for the patient. Patient laying in the bed she told me she is feeling somewhat better denies any complaint GENERAL: Patient is lethargic HEART: Irregular S1 and S2. No murmur, rub or gallop. LUNGS: Decreased breath sound bilaterally. CENTRAL NERVOUS SYSTEM: Grossly nonfocal. EXTREMITIES: Lower extremities with out edema bilaterally. Atrial fibrillation with rapid ventricular spots: Well-controlled Acute on chronic systolic heart Acute on chronic kidney disease Recommend holding diuretics Subjective 2 Subjective: Patient is alert to person and place but not to situation. She is on 2 L nasal cannula with oxygen saturation of 97%. Her creatinine has actually increased at 2. Lasix is being held due to this. She looks stable at this time. Vitals/I&O/Wt Last Vital Signs Temp 98.9 F 07/06/24 12:00 Pulse 94 07/06/24 13:38 Resp 22 H 07/06/24 13:38 BP 105/83 07/06/24 12:00 Pulse Ox 97 07/06/24 13:38 O2 Del Method Nasal Cannula 07/06/24 13:38 O2 Flow Rate 2 07/06/24 13:38 FiO2 30 07/06/24 04:15 07/05/24 07/06/24 07/06/24 22:59 06:59 14:59 Intake Total 224.757 / 324.757 106.558 / 106.558 Output Total 100 / 550 250 / 800 Balance 124.757 / -225.243 -250 / -475.243 106.558 / 106.558 Weight last 48 hrs Weight 212 lb 6.4 oz Weight 212 lb 6.4 oz Weight 200 lb Weight 200 lb 4.8 oz Physical Exam 2 Narrative: General: Patient is alert to person and place but not situation, slightly lethargic Muskuloskeletal: Full ROM Respiratory: Normal respiratory effort, left lower lobe diminished clear otherwise throughout other lung [place], no use of accessory muscles Cardio: No JVD, regular rate, regular rhythm, S1 S2 normal, no murmurs, peripheral pulses 2+ radial palpated bilaterally GI: Normal to inspection, nondistended Extremities: Full ROM, normal, normal capillary refill, 2+ pitting edema bilateral lower extremities Neuro: Alert and oriented x4, no focal motor deficits Psych: Affect normal, denies suicidal ideation, mental status grossly normal Skin: No rashes or lesions noted, no wounds Urinary Catheter Management: Begum: Cath Placed During This Visit: yes Reason for Continuing Indwelling Catheter: Accurate Measurement of Urinary Output in Critically Ill Patients Urinary Catheter Date of Insertion: 07/04/24 Urinary Catheter Time of Insertion: 20:02 Data 07/06/24 03:24 07/06/24 03:24 Micro: Microbiology 07/05/24 17:03 Urine Culture - Preliminary Urine Catheterized 07/05/24 17:17 Blood Culture - Preliminary Blood Staphylococcus species 07/05/24 17:15 Blood Culture - Preliminary Blood SPECIMEN COLLECTED A&P Assessment and plan (1) CHF (congestive heart failure): Qualifiers: Heart failure type: systolic Heart failure chronicity: chronic Q ualified Code(s): I50.22 - Chronic systolic (congestive) heart failure (2) Ischemic cardiomyopathy: (3) Aortic valve stenosis: Qualifiers: Cardiac valve disease etiology: nonrheumatic Qualified Code(s): I35.0 - Nonrheumatic aortic (valve) stenosis (4) Atrial fibrillation with RVR: Plan Patient has had an acute kidney injury with creatinine increasing to 2. At this time Lasix is being held. I did discuss this with Dr. Watson.. Her oxygen demand is low. She is stable at this point. She is going to get fluids per hospitalist to see if she responds to that. PDMP PDMP Reviewed: Not Reviewed Attestations 2 Medical Necessity Statement*: Defer to primary Coding Level of Care Code Acute Code for [facility] Fwd Diagnoses Chronic systolic congestive heart failure I50.22 Heart failure type: systolic Heart failure chronicity: chronic Ischemic cardiomyopathy I25.5 Nonrheumatic aortic valve stenosis I35.0 Cardiac valve disease etiology: nonrheumatic Atrial fibrillation with RVR I48.91
[2024-07-06] MEDS: aspirin 300 mg Supp PR (15:14)
[2024-07-06 17:02] LABS: Anion Gap 20.4 (5-19); Blood Urea Nitrogen 51 mg/dL (8-23); Calcium 8.5 mg/dL (8.5-10.5); Carbon Dioxide 26 mmol/L (22-29); Chloride 106 mmol/L (98-107); Creatinine Clr Calc Pharmacy 25.9082; Glucose 160 mg/dL (65-115); Osmolality Calculated 325 mOsm/kg (285-295); Potassium 3.4 mmol/L (3.5-5.1); Sodium 149 mmol/L (136-145)
[2024-07-06] MEDS: budesonide 0.5 mg/2 mL Neb INHALATION (20:14)
[2024-07-06] MEDS: enoxaparin 100 mg/mL Syringe 90 MG SUBCUT (22:39)
[2024-07-07] VITALS (16 sets, daily range): BP systolic 80–129; BP diastolic 66–80; PULSE 80–104; RESP 16–28; TEMP 36.3–37.1; O2SAT 94–99
[2024-07-07] MEDS: ipratropium 0.5 mg/2.5 mL Neb INHALATION ×4 (01:59→21:05)
[2024-07-07] MEDS: levalbuterol 0.63 mg/3 mL Neb INHALATION ×4 (01:59→21:05)
[2024-07-07] MEDS: linezolid premix 600 MG/300 ML PREMIX 300 MG IV ×2 (02:40→13:58)
[2024-07-07] MEDS: piperacillin-tazobactam 3.375 GM in sodium chloride 0.9% (plus) 50 ML IV ×3 (02:40→17:46)
[2024-07-07 03:13] LABS: Basophils % 0.2 %; Eosinophils % 0.7 %; Hematocrit 36.2 % (36-47); Lymphocytes # 0.6 10^3/uL (0.8-4.8); Lymphocytes % 14.4 %; Mean Corpuscular HGB Conc 28.7 g/dL (30-55); Mean Corpuscular Hemoglobin 25.4 pg (27-33); Mean Corpuscular Volume 88.5 fl (85-98); Mean Platelet Volume 9.8 fL (7.4-10.4); Monocytes # 0.5 10^3/uL (0.2-0.9); Monocytes % 10.5 %; Neutrophils # 3.21 10^3/uL (1.8-7.7); Neutrophils % 73.1 %; Nucleated Red Blood Cells # 0.1 /100WBC; Nucleated Red Blood Cells % 1.1 %; Platelet Count 193 10^3/cmm (157-399); Red Blood Count 4.09 10^6/uL (3.85-5.65); Red Cell Distribution Width 20.6 % (12.1-15.1); White Blood Count 4.39 10^3/uL (3.29-11.43)
[2024-07-07 03:28] LABS: Alanine Aminotransferase 27 U/L (0-33); Albumin Level 2.6 g/dL (3.5-5.2); Alkaline Phosphatase 90 U/L (35-105); Anion Gap 16.2 (5-19); Aspartate Amino Transferase 36 U/L (0-32); Blood Urea Nitrogen 48 mg/dL (8-23); Calcium 8.3 mg/dL (8.5-10.5); Carbon Dioxide 28 mmol/L (22-29); Chloride 108 mmol/L (98-107); Creatinine Clr Calc Pharmacy 24.5446; Globulin 3.7 g/dL (1.3-4.6); Glucose 106 mg/dL (65-115); Osmolality Calculated 321 mOsm/kg (285-295); Potassium 3.2 mmol/L (3.5-5.1); Sodium 149 mmol/L (136-145); Total Bilirubin 0.4 mg/dL (0.15-1.2); Total Protein 6.3 g/dL (6.6-8.7)
[2024-07-07 03:44] LABS: Chol HDL Ratio 5.44 mg/dL (0.0-4.40); Cholesterol 136 mg/dL (0-200); HDL Cholesterol 25 mg/dL (60-100); LDL Cholesterol Calculated 90 mg/dL (50-129); Magnesium 2.6 mg/dL (1.7-2.3); Triglycerides 107 mg/dL (0-150); VLDL Cholestrol Calculation 21 mg/dL (0-30)
[2024-07-07] MEDS: dextrose 5%-sod chloride 0.9% 1,000 ML 50 ML IV ×2 (03:46→09:11)
[2024-07-07 03:50] LABS: Folate Level 13.2 ng/mL (4.8-37.3)
[2024-07-07 04:01] LABS: Bacillus cereus group Not Detected (NOT DETECT); Bacillus subtillis group Not Detected (NOT DETECT); Corynebacterium Detected (NOT DETECT); Cutibacterium acnes (P.acnes) Not Detected (NOT DETECT); Enterococcus Not Detected (NOT DETECT); Enterococcus faecalis Not Detected (NOT DETECT); Enterococcus faecium Not Detected (NOT DETECT); Lactobacillus species Not Detected (NOT DETECT); Listeria Not Detected (NOT DETECT); Listeria monocytogenes Not Detected (NOT DETECT); Micrococcus Not Detected (NOT DETECT); Pan Candida Not Detected (NOT DETECT); Pan Gram-Negative Not Detected (NOT DETECT); Staphylococcus epidermidis Not Detected (NOT DETECT); Staphylococcus lugdunensis Not Detected (NOT DETECT); Staphylococcus species Not Detected (NOT DETECT); Streptococcus agalactiae Not Detected (NOT DETECT); Streptococcus anginosus group Not Detected (NOT DETECT); Streptococcus pneumoniae Not Detected (NOT DETECT); Streptococcus pyogenes Not Detected (NOT DETECT); Streptococcus species Not Detected (NOT DETECT)
[2024-07-07] MEDS: budesonide 0.5 mg/2 mL Neb INHALATION ×2 (07:38→21:05)
[2024-07-07] MEDS: dextrose 5%-sod chloride 0.45% 1,000 ML 75 ML IV ×2 (09:57→20:35)
--- NOTE | 2024-07-07 09:58 | PC.CHAP ---
Pastoral Care Encounter/Spiritual Assessment Type of Contact [] Declined janitorial cleaner visit [] Patient/Family/Request visit [] Outpatient visit [] Follow-up visit [] Physician referral [] Code/Alert [] Routine visit [] Staff referral [] Actively dying [] Patient sleeping [] Family support [] [] Out of room [] Palliative care [] [] Receiving care in room [] Pre-surgical visit [] Trauma [] Long length of stay [] ICU visit [x] Other:Contact precautions. No visit. Relational/Emotional Strength [] Patient feels connected with others/family/visitors/staff [] Distress [] Loneliness/isolation [] Abandonment Spirituality of Patient [] Person of Valeria [] Attends Episcopalian of their Valeria [] Believes in Prayer [] Reads Bible or Nondenominational materials [] There are Spiritual issues to be addressed Account Services Associate Interventions [] Prayer [] Active listening [] Non-anxious presence [] Spiritual/emotional support [] Crisis/trauma care [] Spiritual counseling [] Bereavement support [] Provided bereavement packet [] Provided Bible/devotional materials [] Provided toy/stuffed animal, coloring book to patient or family member [] Provided Communion [] Anointing/[place] [] Salvation [] Completed spiritual assessment [] Other: Impact on Illness or Injury [] Angry [] Fearful [] Anxious [] Often cries [] Exhaustion [] Unable to work [] Unable to attend religious [] Unable to walk/stand [] Unable to read [] Unable to drive [] Unable to eat/drink [] Unable to sleep [] Unable to be with family [] Patient intubated [] Other: Summary Time spent with patient
--- NOTE | 2024-07-07 10:22 | PC.NURSE ---
Provider is updated that 0900 PO medications were not given due to aspiration.
--- NOTE | 2024-07-07 12:04 | P.PN_ITS ---
Subjective 2 Subjective: No acute events overnight. Patient has remained stable and afebrile. Awake and alert to self, being in the hospital at bedside today. Daughter at bedside. Patient herself denies any nausea, vomiting, headache. Continues to have a episode of coughing even with mouth swabs. Medications: Reviewed: Yes Vitals/I&O/Wt Last Vital Signs Temp 98.7 F 07/07/24 11:42 Pulse 92 07/07/24 11:42 Resp 24 H 07/07/24 11:42 BP 116/80 07/07/24 11:42 Pulse Ox 94 07/07/24 11:42 O2 Del Method Nasal Cannula 07/07/24 11:42 O2 Flow Rate 1 07/07/24 11:42 FiO2 30 07/06/24 04:15 07/06/24 07/07/24 07/07/24 22:59 06:59 14:59 Intake Total 356.267 / 154.582 9020.87 / 1823.695 322.500 / 322.500 Output Total 350 / 350 Balance 6.267 / 157.675 2425.87 / 1473.695 322.500 / 322.500 Weight last 48 hrs Weight 95.339 kg Weight 96.343 kg Weight 96.343 kg Physical Exam 2 Narrative: General: No acute distress, awake and alert to self, being in the hospital Head: Normocephalic. Atraumatic. EOM intact. Neck: Elevated JVD. Cardiovascular: Irregularly irregular rhythm. No gallops. Systolic murmur present. 2+ pitting edema in bilateral upper and lower extremities?improving. Lungs: Bilateral bronchial breath sounds all over lung goodwin with occasional rhonchi breath sounds diminished on left. On nasal cannula Abdomen: Normal bowel sounds, abdomen soft and nontender. Neurological: Left sided residual hemiparesis with stiffness. No myoclonus. Urinary Catheter Management: Begum: Cath Placed During This Visit: yes Reason for Continuing Indwelling Catheter: Accurate Measurement of Urinary Output in Critically Ill Patients Urinary Catheter Date of Insertion: 07/04/24 Urinary Catheter Time of Insertion: 20:02 Data 07/07/24 02:11 07/07/24 02:11 Micro: Microbiology 07/05/24 17:03 Urine Culture - Final Urine Catheterized 07/05/24 17:15 Blood Culture - Preliminary Blood Corynebacterium species 07/06/24 15:42 Blood Culture - Preliminary Blood SPECIMEN COLLECTED 07/06/24 15:42 Blood Culture - Preliminary Blood SPECIMEN COLLECTED 07/05/24 17:17 Blood Culture - Preliminary Blood Staphylococcus species A&P Assessment and plan (1) Dysphagia: (2) Acute hypoxemic respiratory failure: (3) Hypernatremia: (4) Atrial fibrillation with RVR: (5) ANY (acute kidney injury): (6) NSTEMI (non-ST elevated myocardial infarction): (7) UTI (urinary tract infection): (8) CVA, old, hemiparesis: (9) Ischemic cardiomyopathy: (10) HTN (hypertension): Qualifiers: Hypertension type: primary hypertension Qualified Code(s): I10 - Essential (primary) hypertension (11) Aortic valve stenosis: Qualifiers: Cardiac valve disease etiology: nonrheumatic Qualified Code(s): I35.0 - Nonrheumatic aortic (valve) stenosis (12) CHF (congestive heart failure): Qualifiers: Heart failure type: systolic Heart failure chronicity: chronic Q ualified Code(s): I50.22 - Chronic systolic (congestive) heart failure (13) CAD (coronary artery disease): (14) Pleural effusion: (15) Normocytic anemia: Plan 78 year old female with a past medical history significant for stroke with residual left hemiparesis, heart failure, aortic valve stenosis, coronary artery disease, COPD, obstructive sleep apnea on CPAP, chronic kidney disease, recurrent urinary tract infections, and multiple other comorbidities who presents from nursing facility with reported altered mental status and lethargy x1 day. Acute hypoxic respiratory insufficiency Combination of congestive heart failure along with aspiration pneumonia. Oxygen supplementation keeping saturation over 90%. CPAP/BiPAP nightly or as needed. Pulmicort twice daily, ipratropium, Xopenex every 6 hours. Aggressive pulmonary toilet as possible. If needed will start on chest vest. Acute metabolic encephalopathy Head CT negative for acute findings Most likely a combination of acute illness along with hypernatremia, ANY. Speech evaluation and start diet accordingly. Acute kidney injury: Baseline creatinine from November seems to be 0.8-1. Creatinine 1.9 today. Appreciate urine output. Oliguria overnight. Hold off on diuresis for now. Medical reconciliation done for nephrotoxic drugs. Monitor BMP afternoon. Hypernatremia: Mild improvement down to 149. Could be in setting of dehydration. Hold off on Lasix. Switch to D5 half NS at 50 cc/h. Repeating BMP as above. Acute metabolic encephalopathy could be in setting of infectious process: Pneumonia/complicated urinary tract infection Continue with Zosyn for now. Follow-up blood culture and urine culture. Check MRSA swab. If MRSA swab is positive will start on linezolid. Positive blood culture: Blood culture from admission 2 out of 4 sets positive for Corynebacterium, 1 out of 4 bottles positive for Staphylococcus. Most likely contaminant. Repeat blood culture sent on 07/06. For now we will continue to follow. History of stroke with left hemiparesis Dysphagia - Reportedly bedbound 2/2 CVA - Family reports patient is on a modified diet at nursing facility but still struggles. He has apparently had procedures done as an outpatient with gastroenterology in the past. Will request documentation. Modified barium swallow. Speech therapy evaluation will start on diet accordingly. Acute on chronic heart failure with reduced ejection fraction Echocardiogram done earlier this admission shows EF of 20% with grade 3 diastolic dysfunction, moderate aortic valve stenosis, moderate MR, moderate TR with mild to moderate pulmonary valve regurgitation. Currently patient seems to be getting compensated. Continue with fluid restriction to less than 1500 cc. Hold off any further diuresis for now. Strict input output charting, daily weights. Paroxysmal atrial fibrillation with RVR Heart rate better controlled. Continue with amiodarone drip at 0.5 for now. Restart oral metoprolol 50 mg twice daily once patient is able to take orally. Pressure TSH Continue with full dose Lovenox 1 mg/kg body weight daily as per creatinine clearance for now. Left-sided pleural effusion Oxygen levels are stable for now. Hold off on thoracentesis for now. Elevated troponin/non-ST elevation MT: Type II MT possibly secondary to A-fib with RVR and CHF. Nonlesional motion abnormality. Continue with full dose Lovenox as per creatinine clearance as above for now. Patient not able to take DAPT as n.p.o. given metabolic encephalopathy. Continue with rectal aspirin. History of coronary artery disease Restart home medications once patient is able to take oral medications. Hypertension Goal blood pressure less than 140/90 millimeters Hg with mean over 65. Hold off on oral antihypertensive for now. Restart accordingly. Full dose Lovenox with sufficient for DVT prophylaxis Protonix for PUD prophylaxis DNR/DNI. Today was the patient's daughters at bedside states they would want patient to be full code. Patient's DPOA is Ms. Silva. Will request further clarification from the team before changing the CODE STATUS. Patient currently alert and oriented to self and being in the hospital only. Did discuss with patient's daughter at bedside that unfortunately patient does have severe mobility at baseline due to CVA, congestive heart failure with EF 15%, baseline dysphagia, being bedbound and unfortunately in an adverse event in which she has to undergo resuscitation there is a high possibility that she would not be able to come back to her baseline. Daughter verbalizes understanding and would want to know CODE STATUS to be changed to full code for now. Did discuss that we will have to get the confirmation from patient's DPOA before making an official change. Will await for Ms. Silva who as per the daughter at bedside should be coming in later in the day. PDMP PDMP Reviewed: Not Reviewed Attestations 2 Medical Necessity Statement*: Requires further hospitalization for management of metabolic encephalopathy in setting of ANY, hypernatremia, past CVA, UTI with concerns for aspiration pneumonia in a patient with history of chronic dysphagia Diagnoses Dysphagia R13.10 Acute hypoxemic respiratory failure J96.01 Hypernatremia E87.0 Atrial fibrillation with RVR I48.91 ANY (acute kidney injury) N17.9 NSTEMI (non-ST elevated myocardial infarction) I21.4 UTI (urinary tract infection) N39.0 CVA, old, hemiparesis I69.359 Ischemic cardiomyopathy I25.5 Primary hypertension I10 Hypertension type: primary hypertension Nonrheumatic aortic valve stenosis I35.0 Cardiac valve disease etiology: nonrheumatic Chronic systolic congestive heart failure I50.22 Heart failure type: systolic Heart failure chronicity: chronic CAD (coronary artery disease) I25.10 Pleural effusion J90 Normocytic anemia D64.9
[2024-07-07] MEDS: lidocaine 1% 5 ML in potassium chloride premix 100 ML 26.25 ML IV (12:28)
--- NOTE | 2024-07-07 13:57 | P.PN_ITS ---
<Statement entered by Nitza Madsen MD - 07/12/24 11:29> Patient was evaluated and cared for in conjunction with an advanced practice practitioner. I personally examined the patient and reviewed the chart and all pertinent data including imaging, telemetry, and laboratory results. I discussed the patient in detail with the advanced practice practitioner. Please see their note for complete H&P testing result and agreed upon plan of care for the patient. Subjective 2 Subjective: Patient is stable from a cardiology perspective. She does not appear in any acute respiratory distress. She is more alert today. Vitals/I&O/Wt Last Vital Signs Temp 98.7 F 07/07/24 11:42 Pulse 93 07/07/24 13:48 Resp 16 07/07/24 13:41 BP 116/80 07/07/24 11:42 Pulse Ox 95 07/07/24 13:41 O2 Del Method Nasal Cannula 07/07/24 13:41 O2 Flow Rate 1 07/07/24 13:41 FiO2 30 07/06/24 04:15 07/06/24 07/07/24 07/07/24 22:59 06:59 14:59 Intake Total 356.267 / 197.713 4188.87 / 1823.695 732.500 / 732.500 Output Total 350 / 350 Balance 6.267 / 384.357 3618.87 / 1473.695 732.500 / 732.500 Weight last 48 hrs Weight 210 lb 3 oz Weight 212 lb 6.4 oz Weight 212 lb 6.4 oz Physical Exam 2 Narrative: General: Patient is alert to person and place but not situation, slightly lethargic Muskuloskeletal: Full ROM Respiratory: Normal respiratory effort, left lower lobe diminished clear otherwise throughout other lung goodwin, no use of accessory muscles Cardio: No JVD, regular rate, regular rhythm, S1 S2 normal, no murmurs, peripheral pulses 2+ radial palpated bilaterally GI: Normal to inspection, nondistended Extremities: Full ROM, normal, normal capillary refill, 2+ pitting edema bilateral lower extremities Skin: No rashes or lesions noted, no wounds Urinary Catheter Management: Begum: Cath Placed During This Visit: yes Reason for Continuing Indwelling Catheter: Accurate Measurement of Urinary Output in Critically Ill Patients Urinary Catheter Date of Insertion: 07/04/24 Urinary Catheter Time of Insertion: 20:02 Data 07/07/24 02:11 07/07/24 02:11 Micro: Microbiology 07/05/24 17:03 Urine Culture - Final Urine Catheterized 07/05/24 17:15 Blood Culture - Preliminary Blood Corynebacterium species 07/06/24 15:42 Blood Culture - Preliminary Blood SPECIMEN COLLECTED 07/06/24 15:42 Blood Culture - Preliminary Blood SPECIMEN COLLECTED 07/05/24 17:17 Blood Culture - Preliminary Blood Staphylococcus species A&P Assessment and plan (1) CHF (congestive heart failure): Qualifiers: Heart failure type: systolic Heart failure chronicity: chronic Q ualified Code(s): I50.22 - Chronic systolic (congestive) heart failure (2) Ischemic cardiomyopathy: (3) Aortic valve stenosis: Qualifiers: Cardiac valve disease etiology: nonrheumatic Qualified Code(s): I35.0 - Nonrheumatic aortic (valve) stenosis (4) Atrial fibrillation with RVR: Plan Patient is more alert today. Lasix is still being held due to acute kidney injury. She appears well compensated at this time. Continue current care from cardiology standpoint PDMP PDMP Reviewed: Not Reviewed Attestations 2 Medical Necessity Statement*: Deferred to primary. Coding Level of Care Code Acute Code for g Fwd Diagnoses Chronic systolic congestive heart failure I50.22 Heart failure type: systolic Heart failure chronicity: chronic Ischemic cardiomyopathy I25.5 Nonrheumatic aortic valve stenosis I35.0 Cardiac valve disease etiology: nonrheumatic Atrial fibrillation with RVR I48.91
[2024-07-07 15:22] LABS: Anion Gap 17.7 (5-19); Blood Urea Nitrogen 46 mg/dL (8-23); Calcium 8.1 mg/dL (8.5-10.5); Carbon Dioxide 23 mmol/L (22-29); Chloride 109 mmol/L (98-107); Creatinine Clr Calc Pharmacy 27.2648; Glucose 179 mg/dL (65-115); Osmolality Calculated 318 mOsm/kg (285-295); Potassium 3.7 mmol/L (3.5-5.1); Sodium 146 mmol/L (136-145)
[2024-07-07] MEDS: ranolazine (12HR) 500 mg Tablet 1000 MG PO (17:46)
--- NOTE | 2024-07-07 18:10 | PC.NURSE ---
Patient is able to have thick foods per Kareem in speech therapy. 1800 medications were crushed and given with pudding, patient tolerated well.
--- NOTE | 2024-07-07 18:12 | PC.NURSE ---
Addendum entered by Chanel Rendon RN 07/07/24 18:19: Provider gave orders to: Hold amio.drip for now If HR goes more than 105. Give bolus of amio 150 and start drip back at 0.5 Original Note: Provider is updated that Ms Jacobs her BP at 1600 was 98/79 then 88/69 and 93/69 with HR of 89 to 95. She is still on the amio drip at 0.5mg/min. She needs a new bag okay to continue? Waiting for orders.
[2024-07-07] MEDS: metoprolol tartrate 50 mg Tablet PO (20:35)
[2024-07-07] MEDS: enoxaparin 100 mg/mL Syringe 90 MG SUBCUT (22:50)
[2024-07-08] VITALS (62 sets, daily range): BP systolic 86–132; BP diastolic 59–85; PULSE 69–94; RESP 11–36; TEMP 36.4; O2SAT 90–100
[2024-07-08] MEDS: piperacillin-tazobactam 3.375 GM in sodium chloride 0.9% (plus) 50 ML IV ×3 (02:02→18:24)
[2024-07-08] MEDS: linezolid premix 600 MG/300 ML PREMIX 300 MG IV ×2 (02:02→15:46)
[2024-07-08] MEDS: levalbuterol 0.63 mg/3 mL Neb INHALATION ×4 (02:22→20:36)
[2024-07-08] MEDS: ipratropium 0.5 mg/2.5 mL Neb INHALATION ×4 (02:22→20:36)
[2024-07-08 05:51] LABS: Basophils % 0.3 %; Eosinophils # 0.1 10^3/uL (0.0-0.8); Eosinophils % 2.1 %; Hematocrit 35.8 % (36-47); Lymphocytes % 24.8 %; Mean Corpuscular HGB Conc 28.5 g/dL (30-55); Mean Corpuscular Hemoglobin 25.2 pg (27-33); Mean Corpuscular Volume 88.6 fl (85-98); Mean Platelet Volume 10.4 fL (7.4-10.4); Monocytes # 0.6 10^3/uL (0.2-0.9); Monocytes % 16.3 %; Neutrophils # 2.16 10^3/uL (1.8-7.7); Neutrophils % 55.7 %; Nucleated Red Blood Cells % 0.5 %; Platelet Count 162 10^3/cmm (157-399); Red Blood Count 4.04 10^6/uL (3.85-5.65); Red Cell Distribution Width 20.3 % (12.1-15.1); White Blood Count 3.87 10^3/uL (3.29-11.43)
[2024-07-08 06:17] LABS: Magnesium 2.5 mg/dL (1.7-2.3)
[2024-07-08 06:18] LABS: Alanine Aminotransferase 25 U/L (0-33); Albumin Level 2.5 g/dL (3.5-5.2); Alkaline Phosphatase 79 U/L (35-105); Aspartate Amino Transferase 28 U/L (0-32); Blood Urea Nitrogen 46 mg/dL (8-23); Calcium 8.1 mg/dL (8.5-10.5); Carbon Dioxide 25 mmol/L (22-29); Chloride 109 mmol/L (98-107); Creatinine Clr Calc Pharmacy 26.5151; Globulin 3.4 g/dL (1.3-4.6); Glucose 102 mg/dL (65-115); Osmolality Calculated 316 mOsm/kg (285-295); Sodium 147 mmol/L (136-145); Total Bilirubin 0.4 mg/dL (0.15-1.2); Total Protein 5.9 g/dL (6.6-8.7)
[2024-07-08 06:19] LABS: Anion Gap 16.6 (5-19); Potassium 3.6 mmol/L (3.5-5.1)
[2024-07-08] MEDS: budesonide 0.5 mg/2 mL Neb INHALATION ×2 (07:51→20:36)
[2024-07-08] MEDS: clopidogrel 75 mg Tablet PO (09:20)
[2024-07-08] MEDS: ranolazine (12HR) 500 mg Tablet 1000 MG PO ×2 (09:20→18:25)
[2024-07-08] MEDS: sennosides 8.6 mg Tablet PO (09:20)
[2024-07-08] MEDS: aspirin 300 mg Supp PR (09:21)
[2024-07-08] MEDS: pantoprazole DR 40 mg Tablet PO (09:21)
[2024-07-08] MEDS: metoprolol tartrate 50 mg Tablet PO ×2 (09:29→19:55)
--- NOTE | 2024-07-08 09:45 | FL_ITS ---
WS: [id number] Modified barium swallow, 07/08/2024 Clinical Data: Oropharyngeal dysphagia Comparison: None. Fluoroscopy time: 2min [id number] # of spot films: 1 Findings: The patient showed oral spillage with all consistencies. There is mild to moderate residue of many consistencies. There is minimal penetration with thick liquids but no aspiration. FL/FL barium swallow modifd [id number] Impression: 1. Oral spillage with all consistencies. 2. Moderate to mild residue with many consistencies. 3. Minimal penetration with thick liquids but no aspiration.
[2024-07-08] MEDS: dextrose 5%-sod chloride 0.45% 1,000 ML 75 ML IV (10:08)
--- NOTE | 2024-07-08 11:18 | PC.SOCIAL ---
IMM Update pg 2 of IMM Updated and reviewed w/ patient. Copy provided and copy dated, initialed and placed in chart.
[2024-07-08] MEDS: FUROsemide 10 mg/mL SDV 10mL 60 MG IVP (12:09)
--- NOTE | 2024-07-08 12:11 | PC.NURSE ---
lasix given later than ordered due to no IV access and a difficult time gaining new access.
--- NOTE | 2024-07-08 12:49 | P.PN_ITS ---
Subjective 2 Subjective: No acute events overnight. Patient has remained hemodynamically stable and afebrile. She did have an episode of nonsustained V. tach of 10 beats earlier today morning while she was coughing. Patient is awake and alert. Denies any nausea, vomiting, headache today. As per nursing staff she is able to tolerate oral medications today. Medications: Reviewed: Yes Vitals/I&O/Wt Last Vital Signs Temp 97.6 F 07/08/24 07:42 Pulse 82 07/08/24 12:00 Resp 28 H 07/08/24 12:00 BP 124/77 07/08/24 12:00 Pulse Ox 95 07/08/24 12:00 O2 Del Method Nasal Cannula 07/08/24 12:00 O2 Flow Rate 1 07/08/24 07:49 FiO2 30 07/06/24 04:15 07/07/24 07/08/24 07/08/24 22:59 06:59 14:59 Intake Total 1452.262 / 2184.762 350 / 2534.762 1000 / 1000 Output Total 600 / 600 100 / 700 Balance 852.262 / 1584.762 250 / 9042.373 0189 / 1000 Weight last 48 hrs Weight 100.199 kg Weight 95.339 kg Physical Exam 2 Narrative: General: No acute distress, tired appearing, weak appearing, AO x 3 Head: Normocephalic. Atraumatic. EOM intact. Neck: Elevated JVD. Cardiovascular: Irregularly irregular rhythm. No gallops. Systolic murmur present. 2+ pitting edema in bilateral upper and lower extremities?improving. Lungs: Bilateral bronchial breath sounds all over lung goodwin with occasional rhonchi breath sounds diminished on left. On nasal cannula Abdomen: Normal bowel sounds, abdomen soft and nontender. Neurological: Left sided residual hemiparesis with stiffness. No myoclonus. Urinary Catheter Management: Begum: Cath Placed During This Visit: yes Reason for Continuing Indwelling Catheter: Accurate Measurement of Urinary Output in Critically Ill Patients Urinary Catheter Date of Insertion: 07/04/24 Urinary Catheter Time of Insertion: 20:02 Data 07/08/24 03:36 07/08/24 03:36 Micro: Microbiology 07/06/24 15:42 Blood Culture - Preliminary Blood NEGATIVE TO DATE 07/06/24 15:42 Blood Culture - Preliminary Blood NEGATIVE TO DATE 07/05/24 17:03 Urine Culture - Final Urine Catheterized A&P Assessment and plan (1) Dysphagia: (2) Acute hypoxemic respiratory failure: (3) Hypernatremia: (4) Atrial fibrillation with RVR: (5) ANY (acute kidney injury): (6) NSTEMI (non-ST elevated myocardial infarction): (7) UTI (urinary tract infection): (8) CVA, old, hemiparesis: (9) Ischemic cardiomyopathy: (10) HTN (hypertension): (11) Aortic valve stenosis: (12) CHF (congestive heart failure): (13) CAD (coronary artery disease): (14) Pleural effusion: (15) Normocytic anemia: Plan 78 year old female with a past medical history significant for stroke with residual left hemiparesis, heart failure, aortic valve stenosis, coronary artery disease, COPD, obstructive sleep apnea on CPAP, chronic kidney disease, recurrent urinary tract infections, and multiple other comorbidities who presents from nursing facility with reported altered mental status and lethargy x1 day. Acute hypoxic respiratory insufficiency Combination of congestive heart failure along with aspiration pneumonia. Oxygen supplementation keeping saturation over 90%. CPAP/BiPAP nightly or as needed. Pulmicort twice daily, ipratropium, Xopenex every 6 hours. Aggressive pulmonary toilet as possible. If needed will start on chest vest. Patient on stable oxygen supplementation. Will give IV Lasix 60 mg one-time. Monitor urine output till afternoon. If not improving will plan for low-dose metolazone. Acute metabolic encephalopathy: Resolved. Head CT negative for acute findings Most likely a combination of acute illness along with hypernatremia, ANY. Speech evaluation and start diet accordingly. Acute kidney injury: Baseline creatinine from November seems to be 0.8-1. Creatinine stable around 1.8. Uremia stable. Urine output improving. Diuresis as above. Medical reconciliation done for nephrotoxic drugs. Monitor BMP in afternoon. Hypernatremia: Sodium stable at 147. Patient's mentation is improving. Could be in setting of dehydration. Hold off on Lasix. Continue with D5 half NS at 50 cc/h along with diuretics as above. Repeating BMP as above. Acute metabolic encephalopathy could be in setting of infectious process: Pneumonia/complicated urinary tract infection MRSA swab positive. Appreciate blood culture and urine culture. Continue with IV Zosyn and linezolid for now. Will finish a 5-day course of antibiotics overall. Review blood cultures so far negative. Seems to be improving. As per speech evaluation patient was able to tolerate Positive blood culture: Blood culture from admission 2 out of 4 sets positive for Corynebacterium, 1 out of 4 bottles positive for Staphylococcus. Most likely contaminant. Repeat blood culture sent on 07/06. For now we will continue to follow. History of stroke with left hemiparesis Dysphagia - Reportedly bedbound 2/2 CVA. Diet yesterday but awaiting MBS study before starting diet. Continue oral medications by mouth with aspiration precautions. - Family reports patient is on a modified diet at nursing facility but still struggles. He has apparently had procedures done as an outpatient with gastroenterology in the past. Will request documentation. Modified barium swallow. Speech therapy evaluation will start on diet accordingly. Acute on chronic heart failure with reduced ejection fraction Echocardiogram done earlier this admission shows EF of 20% with grade 3 diastolic dysfunction, moderate aortic valve stenosis, moderate MR, moderate TR with mild to moderate pulmonary valve regurgitation. Currently patient seems to be getting compensated. Continue with fluid restriction to less than 1500 cc. Diuretic as above. Ghts. Paroxysmal atrial fibrillation with RVR Heart rate better controlled. Continue with amiodarone drip at 0.5 for now. Restart oral metoprolol 50 mg twice daily once patient is able to take orally. Appreciate TSH Continue with full dose Lovenox 1 mg/kg body weight daily as per creatinine clearance for now. Left-sided pleural effusion Oxygen levels are stable for now. Hold off on thoracentesis for now. Elevated troponin/non-ST elevation MO: Type II MO possibly secondary to A-fib with RVR and CHF. Nonlesional motion abnormality. Continue with full dose Lovenox as per creatinine clearance as above for now. Patient not able to take DAPT as n.p.o. given metabolic encephalopathy. Continue with rectal aspirin. History of coronary artery disease Restart home medications once patient is able to take oral medications. Hypertension Goal blood pressure less than 140/90 millimeters Hg with mean over 65. Hold off on oral antihypertensive for now. Restart accordingly. Full dose Lovenox with sufficient for DVT prophylaxis Protonix for PUD prophylaxis CODE STATUS: DNR/DNI at [facility]. Patient is awake and alert today. Discussed CODE STATUS in detail with the patient. She is agreeable for resuscitation. She is okay with chest compressions and mechanical ventilation as needed. CODE STATUS changed to full code. PDMP PDMP Reviewed: Not Reviewed Attestations 2 Medical Necessity Statement*: Requires further hospitalization for management of acute hypoxia, metabolic encephalopathy, dysphagia in setting of hypernatremia, ANY, congestive heart failure in a patient with CVA with residual left-sided weakness Diagnoses Dysphagia R13.10 Acute hypoxemic respiratory failure J96.01 Hypernatremia E87.0 Atrial fibrillation with RVR I48.91 ANY (acute kidney injury) N17.9 NSTEMI (non-ST elevated myocardial infarction) I21.4 UTI (urinary tract infection) N39.0 CVA, old, hemiparesis I69.359 Ischemic cardiomyopathy I25.5 Primary hypertension I10 Hypertension type: primary hypertension Nonrheumatic aortic valve stenosis I35.0 Cardiac valve disease etiology: nonrheumatic Chronic systolic congestive heart failure I50.22 Heart failure chronicity: chronic Heart failure type: systolic CAD (coronary artery disease) I25.10 Pleural effusion J90 Normocytic anemia D64.9
--- NOTE | 2024-07-08 13:05 | P.PN_ITS ---
<Statement entered by Rashad Winston M.D - 07/09/24 07:20> Patient was cared for in conjunction with an advanced practice practitioner.? I reviewed the chart and all pertinent data including imaging, telemetry, and laboratory results.? I discussed the patient in detail with the advanced practice practitioner.? Please see? their note for complete progress note, testing results and agreed upon plan of care for the patient. Subjective 2 Subjective: Patient is doing well this morning. She is alert. No difficulty breathing at this time. Will continue medical management. Creatinine is stable at 1.8 still holding diuretics.She is starting to take medication p.o. Vitals/I&O/Wt Last Vital Signs Temp 97.6 F 07/08/24 07:42 Pulse 82 07/08/24 12:00 Resp 28 H 07/08/24 12:00 BP 124/77 07/08/24 12:00 Pulse Ox 95 07/08/24 12:00 O2 Del Method Nasal Cannula 07/08/24 12:00 O2 Flow Rate 1 07/08/24 07:49 FiO2 30 07/06/24 04:15 07/07/24 07/08/24 07/08/24 22:59 06:59 14:59 Intake Total 1452.262 / 2184.762 350 / 2534.762 1000 / 1000 Output Total 600 / 600 100 / 700 Balance 852.262 / 1584.762 250 / 3577.044 9041 / 1000 Weight last 48 hrs Weight 220 lb 14.4 oz Weight 210 lb 3 oz Physical Exam 2 Narrative: General: Patient is alert to person and place but not situation, slightly lethargic Muskuloskeletal: Full ROM Respiratory: Normal respiratory effort, left lower lobe diminished clear otherwise throughout other lung goodwin, no use of accessory muscles Cardio: No JVD, regular rate, regular rhythm, S1 S2 normal, Systolic murmur in the aortic space II/, peripheral pulses 2+ radial palpated bilaterally GI: Normal to inspection, nondistended Extremities: Full ROM, normal, normal capillary refill, 2+ pitting edema bilateral lower extremities Skin: No rashes or lesions noted, no wounds Urinary Catheter Management: Begum: Cath Placed During This Visit: yes Reason for Continuing Indwelling Catheter: Accurate Measurement of Urinary Output in Critically Ill Patients Urinary Catheter Date of Insertion: 07/04/24 Urinary Catheter Time of Insertion: 20:02 Data 07/08/24 03:36 07/08/24 03:36 Micro: Microbiology 07/06/24 15:42 Blood Culture - Preliminary Blood NEGATIVE TO DATE 07/06/24 15:42 Blood Culture - Preliminary Blood NEGATIVE TO DATE 07/05/24 17:03 Urine Culture - Final Urine Catheterized A&P Assessment and plan (1) CHF (congestive heart failure): (2) Ischemic cardiomyopathy: (3) Aortic valve stenosis: (4) Atrial fibrillation with RVR: Plan Patient is more alert today. Lasix is still being held due to acute kidney injury. She appears well compensated at this time. Continue current care from cardiology standpoint PDMP PDMP Reviewed: Not Reviewed Attestations 2 Medical Necessity Statement*: Deferred to primary. Coding Level of Care Code Acute Code for Chg Fwd Diagnoses Chronic systolic congestive heart failure I50.22 Heart failure type: systolic Heart failure chronicity: chronic Ischemic cardiomyopathy I25.5 Nonrheumatic aortic valve stenosis I35.0 Cardiac valve disease etiology: nonrheumatic Atrial fibrillation with RVR I48.91
[2024-07-08] MEDS: metOLazone 5 MG Tablet PO (15:31)
[2024-07-08 16:35] LABS: Blood Urea Nitrogen 41 mg/dL (8-23); Calcium 8.1 mg/dL (8.5-10.5); Carbon Dioxide 23 mmol/L (22-29); Chloride 106 mmol/L (98-107); Creatinine Clr Calc Pharmacy 29.8295; Glucose 107 mg/dL (65-115); Osmolality Calculated 307 mOsm/kg (285-295); Sodium 143 mmol/L (136-145)
[2024-07-08] MEDS: amiodarone 200 mg Tablet PO (18:25)
[2024-07-08] MEDS: lidocaine 1% 5 ML in potassium chloride premix 100 ML 26.25 ML IV (19:17)
[2024-07-08] MEDS: enoxaparin 100 mg/mL Syringe 90 MG SUBCUT (22:59)
[2024-07-08] MEDS: zolpidem 5 mg Tablet PO (23:16)
[2024-07-09] VITALS (16 sets, daily range): BP systolic 89–117; BP diastolic 56–72; PULSE 72–101; RESP 20–34; TEMP 36.6; O2SAT 92–99
[2024-07-09] MEDS: piperacillin-tazobactam 3.375 GM in sodium chloride 0.9% (plus) 50 ML IV ×3 (01:42→17:10)
[2024-07-09] MEDS: linezolid premix 600 MG/300 ML PREMIX 300 MG IV ×2 (01:42→12:58)
[2024-07-09] MEDS: ipratropium 0.5 mg/2.5 mL Neb INHALATION ×4 (01:47→19:39)
[2024-07-09] MEDS: levalbuterol 0.63 mg/3 mL Neb INHALATION ×4 (01:47→19:39)
[2024-07-09] MEDS: dextrose 5%-sod chloride 0.45% 1,000 ML 75 ML IV (03:21)
[2024-07-09 05:43] LABS: Magnesium 2.3 mg/dL (1.7-2.3)
[2024-07-09 05:44] LABS: Alanine Aminotransferase 21 U/L (0-33); Albumin Level 2.6 g/dL (3.5-5.2); Alkaline Phosphatase 66 U/L (35-105); Anion Gap 16.6 (5-19); Aspartate Amino Transferase 21 U/L (0-32); Blood Urea Nitrogen 40 mg/dL (8-23); Calcium 7.8 mg/dL (8.5-10.5); Carbon Dioxide 22 mmol/L (22-29); Chloride 106 mmol/L (98-107); Creatinine Clr Calc Pharmacy 29.7089; Globulin 3.3 g/dL (1.3-4.6); Glucose 100 mg/dL (65-115); Osmolality Calculated 302 mOsm/kg (285-295); Potassium 3.6 mmol/L (3.5-5.1); Sodium 141 mmol/L (136-145); Total Bilirubin 0.4 mg/dL (0.15-1.2); Total Protein 5.9 g/dL (6.6-8.7)
[2024-07-09] MEDS: budesonide 0.5 mg/2 mL Neb INHALATION ×2 (08:11→19:39)
[2024-07-09] MEDS: amiodarone 200 mg Tablet PO ×2 (08:33→17:10)
[2024-07-09] MEDS: pantoprazole DR 40 mg Tablet PO (08:33)
[2024-07-09] MEDS: ranolazine (12HR) 500 mg Tablet 1000 MG PO ×2 (08:33→17:10)
[2024-07-09] MEDS: clopidogrel 75 mg Tablet PO (08:33)
[2024-07-09] MEDS: FUROsemide 10 mg/mL SDV 10mL 60 MG IVP (08:39)
[2024-07-09] MEDS: aspirin 81 mg EC Tablet PO (08:39)
--- NOTE | 2024-07-09 11:41 | P.PN_ITS ---
<Statement entered by Rashad Winston M.D - 07/11/24 10:06> Patient was evaluated and cared for in conjunction with an advanced practice practitioner.? I personally examined the patient and reviewed the chart and all pertinent data including imaging, telemetry, and laboratory results.? I discussed the patient in detail with the advanced practice practitioner.? Please see? their note for complete progress note, testing results and agreed upon plan of care for the patient. GENERAL: Patient is alert HEART: Regular S1 and S2 LUNGS: Diminished air entry EXTREMITIES: Lower extremities with 2+ edema I had a detailed discussion with patient's family about prognosis and current condition. They decided to change code status to DNR/DNI after the discussion and later called patient's nurse that they wanted to switch her to comfort care. We will sign off. Documented by User: Faye Dumont NP 07/09/24 11:45 Subjective 2 Subjective: Patient is alert today. Her blood pressure is soft. Metoprolol is being held due to this. Apparently per patient's daughter she did not take her pills very well and had some episodes where she coughed them back up. She appears comfortable at this time. Vitals/I&O/Wt Last Vital Signs Temp 97.9 F 07/09/24 07:35 Pulse 82 07/09/24 11:26 Resp 25 H 07/09/24 11:26 BP 89/60 07/09/24 11:26 Pulse Ox 96 07/09/24 11:26 O2 Del Method Nasal Cannula 07/09/24 11:26 O2 Flow Rate 1.5 07/09/24 08:10 FiO2 30 07/06/24 04:15 07/08/24 07/09/24 07/09/24 22:59 06:59 14:59 Intake Total 555 / 1555 1550 / 3105 518.988 / 518.988 Output Total 760 / 760 400 / 1160 Balance -205 / 795 1150 / 1945 518.988 / 518.988 Weight last 48 hrs Weight 219 lb 6.4 oz Weight 220 lb 14.4 oz Physical Exam 2 Narrative: General: Patient is alert to person and place but not situation, slightly lethargic Muskuloskeletal: Full ROM Respiratory: Normal respiratory effort, left lower lobe diminished clear otherwise throughout other lung goodwin, no use of accessory muscles Cardio: No JVD, regular rate, regular rhythm, S1 S2 normal, Systolic murmur in the aortic space II/, peripheral pulses 2+ radial palpated bilaterally GI: Normal to inspection, nondistended Extremities: Full ROM, normal, normal capillary refill, 2+ pitting edema bilateral lower extremities Skin: No rashes or lesions noted, no wounds Urinary Catheter Management: Begum: Cath Placed During This Visit: yes Reason for Continuing Indwelling Catheter: Accurate Measurement of Urinary Output in Critically Ill Patients Urinary Catheter Date of Insertion: 07/04/24 Urinary Catheter Time of Insertion: 20:02 Data 07/09/24 14:38 07/09/24 14:38 A&P Assessment and plan (1) CHF (congestive heart failure): (2) Ischemic cardiomyopathy: (3) Aortic valve stenosis: (4) Atrial fibrillation with RVR: Plan Patient is more alert today. Lasix is still being held due to acute kidney injury. Creatinine is 1.6. This is stable. Patient is not taking in much fluid. She appears well compensated at this time. Continue current care from cardiology standpoint. Will continue medical management. PDMP PDMP Reviewed: Not Reviewed Attestations 2 Medical Necessity Statement*: Deferred to primary Coding Level of Care Code Acute Code for [facility] Fwd Diagnoses Chronic systolic congestive heart failure I50.22 Heart failure chronicity: chronic Heart failure type: systolic Ischemic cardiomyopathy I25.5 Nonrheumatic aortic valve stenosis I35.0 Cardiac valve disease etiology: nonrheumatic Atrial fibrillation with RVR I48.91 Documented by User: Rashad Winston M.D 07/11/24 10:08 Physical Exam 2 Urinary Catheter Management: Begum: Cath Placed During This Visit: yes Data 07/09/24 14:38 07/09/24 14:38 A&P Assessment and plan (1) CHF (congestive heart failure): (2) Ischemic cardiomyopathy: (3) Aortic valve stenosis: (4) Atrial fibrillation with RVR: PDMP PDMP Reviewed: Not Reviewed Coding Level of Care Code Acute Code for Chg Fwd Diagnoses Chronic systolic congestive heart failure I50.22 Heart failure chronicity: chronic Heart failure type: systolic Ischemic cardiomyopathy I25.5 Nonrheumatic aortic valve stenosis I35.0 Cardiac valve disease etiology: nonrheumatic Atrial fibrillation with RVR I48.91
--- NOTE | 2024-07-09 11:44 | P.PN_ITS ---
Subjective 2 Subjective: No acute events overnight. Patient has remained hemodynamically stable and afebrile. Today morning examination patient is awake and alert having her breakfast. Continues to have occasional episodes of cough during her meals. She is on 1 L. Appreciate urine output. Medications: Reviewed: Yes Vitals/I&O/Wt Last Vital Signs Temp 97.9 F 07/09/24 07:35 Pulse 82 07/09/24 11:26 Resp 25 H 07/09/24 11:26 BP 89/60 07/09/24 11:26 Pulse Ox 96 07/09/24 11:26 O2 Del Method Nasal Cannula 07/09/24 11:26 O2 Flow Rate 1.5 07/09/24 08:10 FiO2 30 07/06/24 04:15 07/08/24 07/09/24 07/09/24 22:59 06:59 14:59 Intake Total 555 / 1555 1550 / 3105 518.988 / 518.988 Output Total 760 / 760 400 / 1160 Balance -205 / 795 1150 / 1945 518.988 / 518.988 Weight last 48 hrs Weight 99.518 kg Weight 100.199 kg Physical Exam 2 Narrative: General: No acute distress, tired appearing, weak appearing, AO x 3 Head: Normocephalic. Atraumatic. EOM intact. Neck: Elevated JVD. Cardiovascular: Irregularly irregular rhythm. No gallops. Systolic murmur present. 2+ pitting edema in bilateral upper and lower extremities?improving. Lungs: Bilateral bronchial breath sounds all over lung goodwin with occasional rhonchi breath sounds diminished on left. On nasal cannula Abdomen: Normal bowel sounds, abdomen soft and nontender. Neurological: Left sided residual hemiparesis with stiffness. No myoclonus. Urinary Catheter Management: Begum: Cath Placed During This Visit: yes Reason for Continuing Indwelling Catheter: Accurate Measurement of Urinary Output in Critically Ill Patients Urinary Catheter Date of Insertion: 07/04/24 Urinary Catheter Time of Insertion: 20:02 Data 07/08/24 03:36 07/09/24 04:55 A&P Assessment and plan (1) Dysphagia: (2) Acute hypoxemic respiratory failure: (3) Hypernatremia: (4) Atrial fibrillation with RVR: (5) ANY (acute kidney injury): (6) NSTEMI (non-ST elevated myocardial infarction): (7) UTI (urinary tract infection): (8) CVA, old, hemiparesis: (9) Ischemic cardiomyopathy: (10) HTN (hypertension): (11) Aortic valve stenosis: (12) CHF (congestive heart failure): (13) CAD (coronary artery disease): (14) Pleural effusion: (15) Normocytic anemia: Plan 78 year old female with a past medical history significant for stroke with residual left hemiparesis, heart failure, aortic valve stenosis, coronary artery disease, COPD, obstructive sleep apnea on CPAP, chronic kidney disease, recurrent urinary tract infections, and multiple other comorbidities who presents from nursing facility with reported altered mental status and lethargy x1 day. Acute hypoxic respiratory insufficiency Combination of congestive heart failure along with aspiration pneumonia. Oxygen supplementation keeping saturation over 90%. CPAP/BiPAP nightly or as needed. Pulmicort twice daily, ipratropium, Xopenex every 6 hours. Aggressive pulmonary toilet as possible. If needed will start on chest vest. Patient on stable oxygen supplementation. Will give IV Lasix 60 mg one-time. Monitor urine output till afternoon. If not improving will plan for low-dose metolazone. Acute metabolic encephalopathy: Resolved. Head CT negative for acute findings Most likely a combination of acute illness along with hypernatremia, ANY. Speech evaluation and start diet accordingly. Acute kidney injury: Baseline creatinine from November seems to be 0.8-1. Creatinine stable around 1.8. Uremia stable. Urine output improving. Diuresis as above. Medical reconciliation done for nephrotoxic drugs. Monitor BMP in afternoon. Hypernatremia: Sodium stable at 147. Patient's mentation is improving. Could be in setting of dehydration. Hold off on Lasix. Continue with D5 half NS at 50 cc/h along with diuretics as above. Repeating BMP as above. Acute metabolic encephalopathy could be in setting of infectious process: Pneumonia/complicated urinary tract infection MRSA swab positive. Appreciate blood culture and urine culture. Continue with IV Zosyn and linezolid for now. Will finish a 5-day course of antibiotics overall. Review blood cultures so far negative. Seems to be improving. As per speech evaluation patient was able to tolerate Positive blood culture: Blood culture from admission 2 out of 4 sets positive for Corynebacterium, 1 out of 4 bottles positive for Staphylococcus. Most likely contaminant. Repeat blood culture sent on 07/06. For now we will continue to follow. History of stroke with left hemiparesis Dysphagia - Reportedly bedbound 2/2 CVA. Diet yesterday but awaiting MBS study before starting diet. Continue oral medications by mouth with aspiration precautions. - Family reports patient is on a modified diet at nursing facility but still struggles. He has apparently had procedures done as an outpatient with gastroenterology in the past. Will request documentation. Modified barium swallow. Speech therapy evaluation will start on diet accordingly. Acute on chronic heart failure with reduced ejection fraction Echocardiogram done earlier this admission shows EF of 20% with grade 3 diastolic dysfunction, moderate aortic valve stenosis, moderate MR, moderate TR with mild to moderate pulmonary valve regurgitation. Currently patient seems to be getting compensated. Continue with fluid restriction to less than 1500 cc. Diuretic as above. Ghts. Paroxysmal atrial fibrillation with RVR Heart rate better controlled. Continue with amiodarone drip at 0.5 for now. Restart oral metoprolol 50 mg twice daily once patient is able to take orally. Appreciate TSH Continue with full dose Lovenox 1 mg/kg body weight daily as per creatinine clearance for now. Left-sided pleural effusion Oxygen levels are stable for now. Hold off on thoracentesis for now. Elevated troponin/non-ST elevation SC: Type II SC possibly secondary to A-fib with RVR and CHF. Nonlesional motion abnormality. Continue with full dose Lovenox as per creatinine clearance as above for now. Patient not able to take DAPT as n.p.o. given metabolic encephalopathy. Continue with rectal aspirin. History of coronary artery disease Restart home medications once patient is able to take oral medications. Hypertension Goal blood pressure less than 140/90 millimeters Hg with mean over 65. Hold off on oral antihypertensive for now. Restart accordingly. Plan for the day: Oxygen supplementations have remained stable. Patient's urine output has been improving though on the lower side. Around 1160 cc. Sodium levels are stable. Creatinine improving to 1.6. Stop IV fluids. IV Lasix 60 mg one-time. Monitor urine output till afternoon and then plan for metolazone accordingly. Repeat BMP in afternoon. Patient is able to take orally now. Continue to give oral medications. Heart rate stable. Continue with oral amiodarone 200 mg twice daily. Blood pressures on the softer side. Will hold off on metoprolol Continue to finish a 5-day course of IV antibiotics. Family requesting B1 levels to be checked. Had detailed goals of care discussions done with patient's daughters including Ms. Silva who is also the DPOA. We discussed unfortunately patient is significantly sick because of her multiple comorbidities including heart failure with EF of 15%, stroke with residual weakness, baseline functional capacity of being bedbound or wheelchair-bound with being Sreedhar lift dependent with chronic aspirations with any kind of consistency of diet. Discussed for now the plan is to treat medically and once patient's oxygen levels are stable, kidney functions remain stable and patient is able to maintain oral intake plan will discharge back to SNF. One of the daughters wants to discuss about possible LVAD along with esophageal surgery to fix her swallowing. We discussed her dysphagia is primarily because of weakness due to stroke and generalized weakness which has been confirmed by modified barium swallow results and doing the surgery even if she is able to go through the procedure which most likely is going to be extremely high risk because of her baseline health is not going to help her much with her swallowing. We also discussed patient is not a candidate for LVAD given her baseline functional capacity. We discussed unfortunately patient is extremely sick at baseline and her quality of life will most likely get worse going forward. Full dose Lovenox with sufficient for DVT prophylaxis Protonix for PUD prophylaxis CODE STATUS: [facility]. Patient is awake and alert today. Discussed CODE STATUS in detail with the patient. She is agreeable for resuscitation. She is okay with chest compressions and mechanical ventilation as needed. CODE STATUS changed to full code. PDMP PDMP Reviewed: Not Reviewed Attestations 2 Medical Necessity Statement*: Requires further hospitalization for management of physical deconditioning, dysphagia, congestive heart failure, aspiration pneumonia, ANY Diagnoses Dysphagia R13.10 Acute hypoxemic respiratory failure J96.01 Hypernatremia E87.0 Atrial fibrillation with RVR I48.91 ANY (acute kidney injury) N17.9 NSTEMI (non-ST elevated myocardial infarction) I21.4 UTI (urinary tract infection) N39.0 CVA, old, hemiparesis I69.359 Ischemic cardiomyopathy I25.5 Primary hypertension I10 Hypertension type: primary hypertension Nonrheumatic aortic valve stenosis I35.0 Cardiac valve disease etiology: nonrheumatic Chronic systolic congestive heart failure I50.22 Heart failure type: systolic Heart failure chronicity: chronic CAD (coronary artery disease) I25.10 Pleural effusion J90 Normocytic anemia D64.9
[2024-07-09 14:45] LABS: Basophils % 0.2 %; Eosinophils # 0.1 10^3/uL (0.0-0.8); Eosinophils % 1.7 %; Hematocrit 34.3 % (36-47); Lymphocytes # 0.8 10^3/uL (0.8-4.8); Lymphocytes % 17.3 %; Mean Corpuscular HGB Conc 29.2 g/dL (30-55); Mean Corpuscular Hemoglobin 25.2 pg (27-33); Mean Corpuscular Volume 86.4 fl (85-98); Mean Platelet Volume 10.1 fL (7.4-10.4); Monocytes # 0.5 10^3/uL (0.2-0.9); Monocytes % 10.5 %; Neutrophils # 3.26 10^3/uL (1.8-7.7); Neutrophils % 69.7 %; Nucleated Red Blood Cells % 0.4 %; Platelet Count 159 10^3/cmm (157-399); Red Blood Count 3.97 10^6/uL (3.85-5.65); Red Cell Distribution Width 19.9 % (12.1-15.1); White Blood Count 4.68 10^3/uL (3.29-11.43)
[2024-07-09 15:05] LABS: Anion Gap 15.8 (5-19); Blood Urea Nitrogen 40 mg/dL (8-23); Calcium 7.8 mg/dL (8.5-10.5); Carbon Dioxide 25 mmol/L (22-29); Chloride 102 mmol/L (98-107); Creatinine Clr Calc Pharmacy 26.4079; Glucose 95 mg/dL (65-115); Osmolality Calculated 300 mOsm/kg (285-295); Sodium 140 mmol/L (136-145)
[2024-07-09 15:09] LABS: Potassium 2.8 mmol/L (3.5-5.1)
[2024-07-09] MEDS: potassium chloride oral liq 20 mEq/15 mL UDC 80 MEQ PO (15:35)
--- NOTE | 2024-07-09 18:39 | PC.NURSE ---
I personally spoke with Shira, patient daughter to confirm comfort care status for patient.
--- NOTE | 2024-07-09 18:40 | PC.NURSE ---
I talked to the daughters Shira and Clifford. They are in agreement to make the patient a DNR and begin comfort care. Informed Dr Noland. Called Shira back with 2nd RN, Nicolle, to verify again with both sisters. MD to place orders.
[2024-07-09] MEDS: LORazepam 2 mg/mL INJ 1 mL 1 MG IVP (20:17)
[2024-07-10 04:30] VITALS: PULSE 74; RESP 20; O2SAT 97
[2024-07-10] MEDS: blistex lip oint 7 gm Tube 1 APPLIC TOPICAL (05:35)
[2024-07-10 06:51] VITALS: RESP 22
[2024-07-10] MEDS: morphine 4 mg/mL SDV 1 mL IVP (06:51)
[2024-07-10 08:00] VITALS: BP 102/67; PULSE 78; RESP 18; TEMP 36.3
--- NOTE | 2024-07-10 08:09 | PC.SOCIAL ---
IMM Update pg 2 of IMM Updated and reviewed w/ patient. Copy provided and copy dated, initialed and placed in chart.
--- NOTE | 2024-07-10 11:41 | PM.DCS ---
Discharge Providers Date of Admission: 07/05/24 17:45 Date of Discharge: July 10, 2024 Attending Provider at Admission: Chuckie Kwok MD Attending Provider at Discharge: Daniel Noland MD Consults: Cardiology: Dr. Madsen Primary Care Provider: Duy Panchal DO Diagnoses at Discharge Discharge Diagnosis (1) Dysphagia: Status: Acute (2) Acute hypoxemic respiratory failure: Status: Resolved (3) Hypernatremia: Status: Acute (4) Atrial fibrillation with RVR: Status: Acute (5) ANY (acute kidney injury): Status: Resolved (6) NSTEMI (non-ST elevated myocardial infarction): Status: Resolved (7) UTI (urinary tract infection): Status: Acute (8) CVA, old, hemiparesis: Status: Acute (9) Ischemic cardiomyopathy: Status: Acute (10) HTN (hypertension): Status: Acute Qualifiers: Hypertension type: primary hypertension Qualified Code(s): I10 - Essential (primary) hypertension (11) Aortic valve stenosis: Status: Acute Qualifiers: Cardiac valve disease etiology: nonrheumatic Qualified Code(s): I35.0 - Nonrheumatic aortic (valve) stenosis (12) CHF (congestive heart failure): Status: Acute Qualifiers: Heart failure chronicity: chronic Heart failure type: systolic Qualified Code(s): I50.22 - Chronic systolic (congestive) heart failure Permanent problem details: systolic (13) CAD (coronary artery disease): Status: Acute (14) Pleural effusion: Status: Acute (15) Normocytic anemia: Status: Acute Reason for Visit Reason for Visit: weakness Brief History: History as per HPI: Jovany Jacobs is a 78 year old female with a past medical history significant for stroke with residual left hemiparesis, heart failure, aortic valve stenosis, coronary artery disease, COPD, obstructive sleep apnea on CPAP, chronic kidney disease, recurrent urinary tract infections, and multiple other comorbidities who presents from nursing facility with reported altered mental status and lethargy x1 day. Patient seen and evaluated in ED 12. She is on BiPAP and unable provide much history. Daughter and granddaughter bedside. Collateral information also collected from ED provider. Family ports patient was in her usual state of health until likely today as she had been to doctors appointments earlier this week and doing fine at that time. Collateral information reveals patient had decreased mental status, generalized weakness, and cough. She was found to be in atrial fibrillation with a rapid ventricular rate per EMS report treated with Cardizem with improvement in rate. Patient endorses shortness of breath, cough, and lower extremity edema. In the emergency department, patient was found to be tachypneic, hypoxic, and tachycardic. EKG showed A-fib with RVR. She was treated with IV diuresis and initiation of BiPAP. Chest x-ray showed cardiomegaly with pulmonary vascular congestion and suspected moderate volume left-sided pleural effusion. Hospital Course Hospital Course Patient was admitted to the hospital further evaluation and management of acute hypoxic respiratory failure in setting of congestive heart failure along with aspiration pneumonia. On admission she was found to be in A-fib with RVR for which she was at for started to Cardizem later transitioned to amiodarone drip given soft blood pressures. She is also found to be in metabolic encephalopathy due to baseline CVA worsening with UTI and acute illness along with acute kidney injury and hypernatremia. She was treated with IV diuresis. Patient responded well to the treatment and her mentation improved after improvement in her renal functions, kidney functions. Patient continued to have significant dysphagia. After conversation with patient's DPOA/Ms. Silva and other daughters at bedside it seems patient has had chronic aspiration because of old CVA and has had esophageal dilatation as an outpatient with gastroenterology in the past for the same reason. Speech evaluation was done and patient's diet was gradually advanced as per modified barium swallow. Given her significant illness, multiple significant comorbidities and poor quality of life multiple goals of care discussions were done with patient's family members and DPOA at bedside. Had detailed goals of care discussions done with patient's daughters including Ms. Silva who is also the DPOA. We discussed unfortunately patient is significantly sick because of her multiple comorbidities including heart failure with EF of 15%, stroke with residual weakness, baseline functional capacity of being bedbound or wheelchair-bound with being Sreedhar lift dependent with chronic aspirations with any kind of consistency of diet. Discussed for now the plan is to treat medically and once patient's oxygen levels are stable, kidney functions remain stable and patient is able to maintain oral intake plan will discharge back to SNF. One of the daughters wants to discuss about possible LVAD along with esophageal surgery to fix her swallowing. We discussed her dysphagia is primarily because of weakness due to stroke and generalized weakness which has been confirmed by modified barium swallow results and doing the surgery even if she is able to go through the procedure which most likely is going to be extremely high risk because of her baseline health is not going to help her much with her swallowing. We also discussed patient is not a candidate for LVAD given her baseline functional capacity. We discussed unfortunately patient is extremely sick at baseline and her quality of life will most likely get worse going forward. After multiple discussions patient's family decided to go ahead and set up hospice. She has been discharged back from SNF with hospice care. Physical Exam Narrative: General: No acute distress, tired appearing, weak appearing, AO x 3 Head: Normocephalic. Atraumatic. EOM intact. Neck: Elevated JVD. Cardiovascular: Irregularly irregular rhythm. No gallops. Systolic murmur present. 2+ pitting edema in bilateral upper and lower extremities?improving. Lungs: Bilateral bronchial breath sounds all over lung goodwin with occasional rhonchi breath sounds diminished on left. On nasal cannula Abdomen: Normal bowel sounds, abdomen soft and nontender. Neurological: Left sided residual hemiparesis with stiffness. No myoclonus. Urinary Catheter Management: Begum: Cath Placed During This Visit: yes Reason for Continuing Indwelling Catheter: Accurate Measurement of Urinary Output in Critically Ill Patients Urinary Catheter Date of Insertion: 07/04/24 Urinary Catheter Time of Insertion: 20:02 Discharge Data Studies Completed and Pending Completed Studies During Hospitalization Category Date Time Status CT head wo con* [id number] Stat Cat Scan 07/04/24 18:44 Completed FL barium swallow modifd [id number] Routine Exams 07/08/24 09:45 Completed XR chest 1V portable [id number] Stat Exams 07/04/24 18:44 [place] [id number] Routine Ultrasound 07/06/24 09:54 Completed Pending at discharge Category Date Time Status Blood Culture Stat Lab 07/06/24 15:42 Results Vitamin B1 (Thiamine),Blood Routine Lab 07/09/24 14:38 Received Radiology Impressions Chest X-Ray 07/04/24 18:44 IMPRESSION: Cardiomegaly with pulmonary vascular congestion. Suspected moderate volume left pleural effusion. Head CT 07/04/24 18:44 IMPRESSION: No acute intracranial abnormality. Modified Barium Swallow 07/08/24 09:45 Impression: 1. Oral spillage with all consistencies. 2. Moderate to mild residue with many consistencies. 3. Minimal penetration with thick liquids but no aspiration. Microbiology 07/05/24 17:15 Blood Blood Culture - Final Corynebacterium species 07/05/24 17:17 Blood Blood Culture - Final Staphylococcus hominis 07/06/24 15:42 Blood Blood Culture - Preliminary NEGATIVE TO DATE 07/06/24 15:42 Blood Blood Culture - Preliminary NEGATIVE TO DATE 07/05/24 17:03 Urine Catheterized Urine Culture - Final Laboratory Results WBC 4.68 10^3/uL (3.29-11.43) 07/09/24 14:38 Corrected WBC Cancelled 07/09/24 04:55 RBC 3.97 10^6/uL (3.85-5.65) 07/09/24 14:38 Hgb 10.00 g/dL (11.27-16.99) L 07/09/24 14:38 Hct 34.3 % (36-47) L 07/09/24 14:38 MCV 86.4 fl (85-98) 07/09/24 14:38 MCH 25.2 pg (27-33) L 07/09/24 14:38 MCHC 29.2 g/dL (30-55) L 07/09/24 14:38 RDW 19.9 % (12.1-15.1) H 07/09/24 14:38 Plt Count 159 10^3/cmm (157-399) 07/09/24 14:38 MPV 10.1 fL (7.4-10.4) 07/09/24 14:38 Gran % Cancelled 07/09/24 04:55 Neut % (Auto) 69.7 % 07/09/24 14:38 Lymph % (Auto) 17.3 % 07/09/24 14:38 Wilcox % (Auto) 10.5 % 07/09/24 14:38 Eos % (Auto) 1.7 % 07/09/24 14:38 Baso % (Auto) 0.2 % 07/09/24 14:38 Neut # (Auto) 3.26 10^3/uL (1.8-7.7) 07/09/24 14:38 Lymph # (Auto) 0.8 10^3/uL (0.8-4.8) 07/09/24 14:38 Wilcox # (Auto) 0.5 10^3/uL (0.2-0.9) 07/09/24 14:38 Eos # (Auto) 0.1 10^3/uL (0.0-0.8) 07/09/24 14:38 Baso # (Auto) 0.0 10^3/uL (0.0-0.1) 07/09/24 14:38 Absolute Gran (auto) Cancelled 07/09/24 04:55 Nucleated RBC % (auto) 0.4 % 07/09/24 14:38 Nucleated RBCs # 0.0 /100WBC 07/09/24 14:38 D-Dimer 1.19 ug/mLFEU (0-0.59) H 07/06/24 11:23 Specimen Type Arterial 07/04/24 19:27 Sample Site Radial, right 07/04/24 19:27 ABG pH 7.43 (7.35-7.45) 07/04/24 19:27 ABG pCO2 45.4 mmHg (35-45) H 07/04/24 19:27 ABG pO2 106.0 mmHg (80.0-100.0) H 07/04/24 19:27 ABG HCO3 30.1 mmol/L (22-26) H 07/04/24 19:27 ABG Base Excess 5.1 mmol/L (-2.0-2.0) H 07/04/24 19:27 Shawn Test Pos 07/04/24 19:27 Hematocrit 33.1 % (37-47) L 07/04/24 19:27 O2 Delivery Device Nc 07/04/24 19:27 O2 Liters/Min 2.0 % 07/04/24 19:27 Flat Sorting Machine Clerk ID [email or web address] 07/04/24 19:27 Sodium 140 mmol/L (136-145) 07/09/24 14:38 Potassium 2.8 mmol/L (3.5-5.1) L* D 07/09/24 14:38 Chloride 102 mmol/L (98-107) 07/09/24 14:38 Carbon Dioxide 25 mmol/L (22-29) 07/09/24 14:38 Anion Gap 15.8 (5-19) 07/09/24 14:38 BUN 40 mg/dL (8-23) H 07/09/24 14:38 Creatinine 1.8 mg/dL (0.5-0.9) H 07/09/24 14:38 GFR Calculation Not Reportable 07/09/24 14:38 Glucose 95 mg/dL (65-115) 07/09/24 14:38 Estimat Average Glucose 105 07/06/24 03:24 Hemoglobin A1c 5.3 % (4.0-6.0) 07/06/24 03:24 Calculated Osmolality 300 mOsm/kg (285-295) H 07/09/24 14:38 Lactic Acid 1.5 mmol/L (0.5-2.2) 07/04/24 18:45 Calcium 7.8 mg/dL (8.5-10.5) L 07/09/24 14:38 Phosphorus 4.0 mg/dL (2.5-4.5) 07/05/24 00:41 Magnesium 2.3 mg/dL (1.7-2.3) 07/09/24 04:55 Iron 12 ug/dL (37-145) L 07/06/24 03:24 TIBC 213 mcg/dl 07/06/24 03:24 % Saturation 5.6 % (20-50) L 07/06/24 03:24 Unsat Iron Binding 201 ug/dL (112-347) 07/06/24 03:24 Total Bilirubin 0.4 mg/dL (0.15-1.2) 07/09/24 04:55 AST 21 U/L (0-32) 07/09/24 04:55 ALT 21 U/L (0-33) 07/09/24 04:55 Alkaline Phosphatase 66 U/L (35-105) 07/09/24 04:55 Troponin T Baseline 373 ng/L (0-10) H* 07/04/24 18:45 Troponin T 120 Minute 384.6 ng/L (0-10) H 07/04/24 20:42 Delta Troponin T 11.6 ABS# (0-10) H* 07/04/24 20:42 Troponin T Hi Sens 6Hr 380.1 ng/L (0-10) H 07/05/24 00:41 Troponin T Hi Sens 6Hr Delta 7.1 ng/L (0-12) 07/05/24 00:41 C-Reactive Protein 67.9 mg/L (0.0-4.9) H 07/04/24 18:45 NT-Pro-B Natriuret Pep 83968 pg/mL (0-450) H 07/06/24 03:24 Total Protein 5.9 g/dL (6.6-8.7) L 07/09/24 04:55 Albumin 2.6 g/dL (3.5-5.2) L 07/09/24 04:55 Globulin 3.3 g/dL (1.3-4.6) 07/09/24 04:55 Triglycerides 107 mg/dL (0-150) 07/07/24 02:11 Cholesterol 136 mg/dL (0-200) 07/07/24 02:11 LDL Cholesterol, Calc 90 mg/dL (50-129) 07/07/24 02:11 Total VLDL Cholesterol 21 mg/dL (0-30) 07/07/24 02:11 HDL Cholesterol 25 mg/dL (60-100) L 07/07/24 02:11 Cholesterol/HDL Ratio 5.44 mg/dL (0.0-4.40) H 07/07/24 02:11 Lipase 15 U/L (13-60) 07/04/24 18:45 Vitamin B12 642 pg/mL (232-1245) 07/06/24 03:24 Folate 13.2 ng/mL (4.8-37.3) 07/07/24 02:11 Procalcitonin 0.27 ng/mL (0-0.5) 07/04/24 18:45 TSH 0.70 uIU/mL (0.27-4.20) 07/04/24 18:45 Urine Color Yellow (Yellow) 07/04/24 19:56 Urine Appearance Turbid (CLEAR) A 07/04/24 19:56 Urine pH 5.0 (5-7) 07/04/24 19:56 Ur Specific [place] 1.014 (1.005-1.030) 07/04/24 19:56 Urine Protein Trace (Negative) A 07/04/24 19:56 Urine Glucose (UA) Negative (Normal) 07/04/24 19:56 Urine Ketones Negative (Negative) 07/04/24 19:56 Urine Blood Non-haemolysed trace (Negative) 07/04/24 19:56 Urine Nitrate Negative (Negative) 07/04/24 19:56 Urine Bilirubin Negative (Negative) 07/04/24 19:56 Urine Urobilinogen 1.0 mg/dL (Negative) 07/04/24 19:56 Ur Leukocyte Esterase 2+ (Negative) A 07/04/24 19:56 Urine RBC 3-5 /hpf (0-2) 07/04/24 19:56 Urine WBC 51-100 /hpf (0-5) H 07/04/24 19:56 Ur Squamous Epith Cells 21-50 /hpf (0-5) H 07/04/24 19:56 Amorphous Sediment Not Reportable 07/04/24 19:56 Urine Bacteria 4+ /hpf (NONE) H 07/04/24 19:56 Hyaline Casts 113.76 /lpf 07/04/24 19:56 Nasal MRSA (PCR) Mrsa detected (Not Detecte) A 07/06/24 10:00 Influenza A (PCR) Negative (Negative) 07/04/24 18:55 Influenza Type B (PCR) Negative (Negative) 07/04/24 18:55 RSV (PCR) Negative (Negative) 07/04/24 18:55 SARS-CoV-2 (PCR) Negative (Negative) 07/04/24 18:55 Vitals Last Vital Signs Temp 97.3 F L 07/10/24 08:00 Pulse 78 07/10/24 08:00 Resp 18 07/10/24 08:00 BP 102/67 07/10/24 08:00 Pulse Ox 97 07/10/24 04:30 O2 Del Method Nasal Cannula 07/09/24 19:39 O2 Flow Rate 2 07/09/24 19:39 FiO2 35 07/10/24 04:30 Discharge Plan Discharge Patient Disposition: Hospice - Medical Facility Condition: Serious Prescriptions: New amiodarone [Pacerone] 200 mg Tablet 200 mg PO DAILY Qty: 30 0RF Continued sennosides [Natural Senna Laxative] 8.6 mg tablet 8.6 mg PO DAILY PRN (Reason: Constipation) aspirin [Adult Low Dose Aspirin] 81 mg tablet,delayed release (DR/EC) 81 mg PO DAILY nitroglycerin [Nitrostat] 0.4 mg tablet, sublingual 0.4 mg sublingual Q5M PRN (Reason: Chest Pain) Rx Instructions: do not exceed 3 doses per episode albuterol sulfate 90 mcg/actuation HFA aerosol inhaler 2 puff inhalation Q6H PRN (Reason: Wheezing) clopidogrel 75 mg tablet 75 mg PO DAILY potassium chloride 20 mEq tablet extended release 20 meq PO DAILY (DME) cervical soft collar See Rx Instructions .Route .MEDSUPPLY Qty: 1 0RF Rx Instructions: As directed guaifenesin 100 mg/5 mL liquid 200 mg PO Q4H PRN (Reason: Cough) acetaminophen 325 mg Tablet 650 mg PO QID PRN (Reason: Pain) hydrocodone-acetaminophen 5-325 mg tablet 1 tab PO Q6H PRN (Reason: Pain) pantoprazole 20 mg tablet,delayed release (DR/EC) 20 mg PO DAILY magnesium hydroxide [Milk of Magnesia] 400 mg/5 mL Suspension 30 ml PO DAILY PRN (Reason: Constipation) meclizine 25 mg Tablet 25 mg PO DAILY PRN (Reason: Dizziness) bisacodyl 10 mg Suppository 10 mg NJ DAILY PRN (Reason: Constipation) Fleet Enema 19-7 gram/118 mL Enema 118 ml NJ DAILY PRN (Reason: Constipation) nystatin 100,000 unit/gram Powder 1 applic TOPICAL BID PRN (Reason: Rash) polyethylene glycol 3350 [Miralax] 17 gram/dose Powder 17 g PO DAILY PRN (Reason: Constipation) fluticasone propionate 50 mcg/actuation spray,suspension 2 spray INTRANASAL DAILY loratadine 10 mg Tablet 10 mg PO DAILY sertraline [Zoloft] 100 mg Tablet 100 mg PO DAILY Emergen-C 1,000 mg Powder Effervescent In Packet 1 ea PO DAILY albuterol sulfate 2.5 mg /3 mL (0.083 %) solution for nebulization 2.5 mg inhalation Q4H PRN (Reason: Shortness Of Breath Or Wheezing) magnesium citrate Solution 296 ml PO DAILY PRN (Reason: Constipation) Changed furosemide 80 mg tablet 80 mg PO BID Qty: 10 0RF Discontinued hydrochlorothiazide 12.5 mg tablet 12.5 mg PO DAILY Discharge Orders: Discharge Order (Routine); Ordered 07/10/24 Ordered By: Daniel Noland Referrals: [facility] [Outside] [facility] ([facility]) [Outside] Duy Panchal DO [Primary Care Provider, Internal Medicine] Discharge Diet: As Directed Patient Instructions: CHF Stoplight, Opioid Safety Activity Restrictions/Additional Instructions: Hospice care Discharge Attestations Time Spent in Discharge Care*: greater than 30 min Specific Discharge Activities: educating patient, educating and/or supporting family/caregiver, discussing with pcp/other providers, discussing with correctional case records supervisor/social workers/dc planners, documenting/other paperwork and evaluating patient/reviewing data Quality Metrics Clinical Quality Measures [ No reported AMI, CVA or VTE this stay] Coding Level of Care Code 38778 Total time (in minutes) for Discharge: 60 Diagnoses Dysphagia R13.10 Acute hypoxemic respiratory failure J96.01 Hypernatremia E87.0 Atrial fibrillation with RVR I48.91 ANY (acute kidney injury) N17.9 NSTEMI (non-ST elevated myocardial infarction) I21.4 UTI (urinary tract infection) N39.0 CVA, old, hemiparesis I69.359 Ischemic cardiomyopathy I25.5 Primary hypertension I10 Hypertension type: primary hypertension Nonrheumatic aortic valve stenosis I35.0 Cardiac valve disease etiology: nonrheumatic Chronic systolic congestive heart failure I50.22 Heart failure chronicity: chronic Heart failure type: systolic CAD (coronary artery disease) I25.10 Pleural effusion J90 Normocytic anemia D64.9
[2024-07-10 13:14] VITALS: BP 102/67; PULSE 79; RESP 22; O2SAT 92
--- NOTE | 2024-07-10 15:12 | PC.NURSE ---
report phoned to [facility] at 1300.
--- NOTE | 2024-07-10 15:28 | PC.NURSE ---
dr su stated that since pt is on comfort care,po meds will most likely be dc'd.he will talk to family regarding this.hold a.m. meds for now
[2024-07-10] MEDS: lanolin oint 7 gm 1 APPLIC TOPICAL (15:49)
[2024-07-10] MEDS: saliva stimulant spray 30 mL Btl 1 SPRAY MUCOUS MEM (15:49)
--- NOTE | 2024-07-10 16:47 | PC.NURSE ---
[facility] ambulance here to [facility] [place] pt and transport to [facility].report given to ems staff.
[2024-07-14 11:24] LABS: Vitamin B1 (Thiamine),Blood 100 nmol/L (78-185)
== END 2024-07-10 17:03 | disposition hospice, inpatient (51) | DRG 280 ==
LOC: ER 18:53 → MEDSURG 20:51 → CSU 07-05 07:17
PROVIDERS: Internal Medicine; Admitting Provider Internal Medicine; Emergency Provider Emergency Medicine; PCP Internal Medicine; Visit Provider Student in an Organized Health Care Education/Training Program
DX: I13.0 Hypertensive heart and chronic kidney disease with heart failure and stage 1 through stage 4 chronic kidney disease, or unspecified chronic kidney disease (principal); G93.41 Metabolic encephalopathy; I21.A1 Myocardial infarction type 2; J69.0 Pneumonitis due to inhalation of food and vomit; I50.23 Acute on chronic systolic (congestive) heart failure; J96.01 Acute respiratory failure with hypoxia; I69.954 Hemiplegia and hemiparesis following unspecified cerebrovascular disease affecting left non-dominant side; I50.22 Chronic systolic (congestive) heart failure; N39.0 Urinary tract infection, site not specified; E87.0 Hyperosmolality and hypernatremia; N17.9 Acute kidney failure, unspecified; Z74.01 Bed confinement status; I48.91 Unspecified atrial fibrillation; Z98.890 Other specified postprocedural states; Z87.81 Personal history of (healed) traumatic fracture; I25.10 Atherosclerotic heart disease of native coronary artery without angina pectoris; J44.9 Chronic obstructive pulmonary disease, unspecified; K21.9 Gastro-esophageal reflux disease without esophagitis; G47.33 Obstructive sleep apnea (adult) (pediatric); N18.9 Chronic kidney disease, unspecified; I25.5 Ischemic cardiomyopathy; Z95.5 Presence of coronary angioplasty implant and graft; E78.5 Hyperlipidemia, unspecified; Z79.899 Other long term (current) drug therapy; Z79.82 Long term (current) use of aspirin; Z88.8 Allergy status to other drugs, medicaments and biological substances; Z91.040 Latex allergy status; I35.0 Nonrheumatic aortic (valve) stenosis; R13.10 Dysphagia, unspecified; I48.0 Paroxysmal atrial fibrillation; Z66 Do not resuscitate; D63.1 Anemia in chronic kidney disease
CPT/HCPCS: 36415; 36600; 51702; 70450; 71045; 74230; 80048; 80053; 80061; 81001; 82607; 82746; 82803; 83036; 83540; 83550; 83605; 83690; 83735; 83880; 84100; 84145; 84425; 84443; 84484; 85025; 85378; 86140; 87040; 87077; 87086; 87150; 87186; 87205; 87637; 92523; 92526; 92610; 92611; 93005; 93970; 94640; 94660; 94664; 96372; 96374; 96376; 99291; A4222; G0378; J0283; J0696; J1650; J1938; J2020; J2060; J2270; J2543; J3480; J3490; J7042; J7614; J7626; J7644; J7799; J9999